=== PATIENT | male | born 1960 | race African-American/Black ===

== ENCOUNTER 2021-12-05 23:16 | Emergency (ER) | payer OTHER ==
--- OUTSIDE RECORDS SUMMARY | 2021-12-05 23:19 | XMS REPORT | Clinical Summary ---
:1960 Author Organization [facility] MD [facility] Address [address] [place] [address] Care Team Providers Name Role Phone Unavailable Primary Care Provider Unavailable Allergies Not on File Medications Not on file Active Problems Not on file Social History Tobacco Use Types Packs/Day Years Used Date Never Assessed Sex Assigned at Date Recorded Not on file Last Filed Vital Signs Not on file Plan of Treatment Not on file Results Not on fileafter 12/05/2020 Insurance Payer Benefit Plan / Subscriber ID Effective Phone Address T ype Group Dates [employer] [id number] 2015-Prese [phone] Medicaid [place] [id number]
--- OUTSIDE RECORDS SUMMARY | 2021-12-05 23:23 | XMS REPORT | Continuity of Care Document ---
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 00:00 extremities grams) (GLYCOLAX) 00 :00 into 4 to 17 gram 8 ounces oral powder of water, packet juice, soda, tea or coffee and drink once daily as directed. cyclobenzap 2020-05- No Peripheral 10mg Take 1 [facility] rine 06-11 vascular tablet by [facility] (FLEXERIL) 00:00: 00:00 disease mouth 3 10 mg 00 :00 with pain times tablet at rest daily. lidocaine 2020-05- No Peripheral 2{patch Apply 2 [facility] (LIDODERM) 06-11 vascular } Patches to [facility] 5 % patch 00:00: 00:00 disease skin as 00 :00 with pain directed at rest every 24 hours for 30 days Leave patch(es) on for up to 12 hours, then 12 hours off.. atorvastati 2020-05- No Peripheral 20mg Take 1 [facility] n (LIPITOR) 06-11 arterial tablet by [facility] 20 mg 00:00: 00:00 occlusive mouth at tablet 00 :00 disease bedtime nightly. hydroCHLORO 2020-05- No Peripheral TAKE 1 [facility] thiazide 06-11 arterial CAPSULE BY [facility] 12.5 mg 00:00: 00:00 occlusive MOUTH capsule 00 :00 disease TWICE A DAY. tamsulosin 2020-05 No Peripheral .4mg Take 1 [facility] (FLOMAX) 06-11 arterial capsule by [facility] 0.4 mg 00:00: 00:00 occlusive mouth at capsule 00 :00 disease bedtime nightly for 90 days. cyclobenzap 2020-05- No Peripheral 10mg Take 1 [facility] rine 06-11 vascular tablet by [facility]s (FLEXERIL) 00:00: 00:00 disease mouth 3 10 mg 00 :00 with pain times tablet at rest daily. sennosides- 2020-05- No Peripheral 1{tbl} Take 1 [facility] docusate 06-11 arterial tablet by ealth sodium 00:00: 00:00 occlusive mouth 2 (SENNA 00 :00 disease times PLUS) daily as 8.6-50 mg needed for tablet Constipati on. aspirin 2020-05 No Peripheral 81mg QD Chew and [facility] (ASPIRIN) 06-11 arterial swallow 1 Health 81 mg 00:00: 00:00 occlusive tablet by chewable 00 :00 disease mouth tablet daily. acetaminoph 2020-05 Yes Peripheral 1{tbl} Take 1 [facility] en-codeine 06-10 vascular tablet by [facility] (TYLENOL 00:00: disease mouth #3) 300-30 00 with pain every 4 mg per at rest hours as tablet needed for Pain. traMADoL 2020-05 Peripheral 100mg Take 2 [facility] (ULTRAM) 50 06-10 vascular tablets by [facility] mg tablet 00:00: 00:00 disease mouth 00 :00 with pain every 6 at rest hours as needed for Pain. acetaminoph 2020-05 No Peripheral 650mg Take 2 [facility] en 06-10 vascular tablets by [facility] (TYLENOL) 00:00: 00:00 disease mouth 325 mg 00 :00 with pain every 6 tablet at rest hours. gabapentin 2020-05 No Peripheral 600mg Take 2 [facility] (NEURONTIN) 06-10 vascular capsules [facility] 300 mg 00:00: 00:00 disease by mouth 3 capsule 00 :00 with pain times at rest daily. Cyclobenzap 2020-05- No Peripheral 10mg Take 1 [facility] rine 06-10 vascular tablet by [facility] (FLEXERIL) 00:00: 00:00 disease mouth 3 10 mg 00 :00 with pain times tablet at rest daily. lidocaine 2020-05- No Peripheral 2{patch Apply 2 [facility] (LIDODERM) 06-10 vascular } Patches to [facility] 5 % patch 00:00: 00:00 disease skin as 00 :00 with pain directed at rest every 24 hours for 30 days Leave patch(es) on for up to 12 hours, then 12 hours off.. sennosides- 2020-05- No Peripheral 1{tbl} Take 1 [facility] docusate 06-10 arterial tablet by ealth sodium 00:00: 00:00 occlusive mouth 2 (SENNA 00 :00 disease times PLUS) daily as 8.6-50 mg needed for tablet Constipati on. polyethylen 2020-05- No Pain in Mix 1 H arris e glycol 06-10 both lower packet (17 Health 3350 00:00: 00:00 extremities grams) (GLYCOLAX) 00 :00 into 4 to 17 gram 8 ounces oral powder of water, packet juice, soda, tea or coffee and drink once daily as directed. ibuprofen 2020-05- No Pain in 600mg Take 1 H arris (MOTRIN) 06-10 both lower tablet by Health 600 mg 00:00: 00:00 extremities mouth tablet 00 :00 every 8 hours as needed for Pain. hydroCHLORO 2020-05- No Peripheral TAKE 1 [facility] thiazide 06-10 arterial CAPSULE BY [facility] 12.5 mg 00:00: 00:00 occlusive MOUTH capsule 00 :00 disease TWICE A DAY. glycerin/mi 2020-05- No 225mL 225 mL, U nivers neral oil 05-07 Rectal, ity of (AGLO 23:45: 23:06 ONCE, 1 [place] ENEMA) 00 :00 dose, On Medical (COMPOUNDED Wed Branch ) Enem 225 03/07/21 at mL 1845, MARIANA iopamidol 2020-05- No [id number] 120mL 120 mL, Univers (ISOVUE 05-07 Intravenou ity o f 370-500 mL) 23:00: 21:43 s, ONCE, 1 [place] injection 00 :00 dose, On Medica l 120 mL Wed Branch 03/07/21 at 1800, Routine docusate 2020-05 Yes [id number] 250mg Take 1 Un [facility] sodium 250 -03 capsule by ity of mg capsule 00:00: mouth [place] 00 daily. Medical Branch polyethylen 2020-05 Yes [id number] 1{packe Take 1 Univers e glycol 1-03 t} Packet by ity of 3350 00:00: mouth [place] (MIRALAX) 00 every 24 Medica l 17 gram (twenty-fo Branch powder ur) hours as needed for Constipati on. ondansetron 2020-05 Yes [id number] 4mg Take 1 Univers 4 mg 1-03 tablet by ity of disintegrat 00:00: mouth [place] ing tablet 00 every 4 Medica l (four) Branch hours as needed for Nausea and Vomiting (N/V). docusate 2020-05 Yes [id number] 250mg Take 1 Un [facility] sodium 250 1-03 capsule by ity of mg capsule 00:00: mouth [place] 00 daily. Medical Branch polyethylen 2020-05 Yes [id number] 1{packe Take 1 Univers e glycol 1-03 t} Packet by ity of 3350 00:00: mouth [place] (MIRALAX) 00 every 24 Medica l 17 gram (twenty-fo Branch powder ur) hours as needed for Constipati on. ondansetron 2020-05 Yes [id number] 4mg Take 1 Univers 4 mg 1-03 tablet by ity of disintegrat 00:00: mouth [place] ing tablet 00 every 4 Medica l (four) Branch hours as needed for Nausea and Vomiting (N/V). docusate 2020-05 Yes [id number] 250mg Take 1 Un [facility] sodium 250 1-03 capsule by ity of mg capsule 00:00: mouth [place] 00 daily. Medical Branch polyethylen 2020-05 Yes [id number] 1{packe Take 1 Univers e glycol 1-03 t} Packet by ity of 3350 00:00: mouth [place] (MIRALAX) 00 every 24 Medica l 17 gram (twenty-fo Branch powder ur) hours as needed for Constipati on. ondansetron 2020-05 Yes [id number] 4mg Take 1 Univers 4 mg 1-03 tablet by ity of disintegrat 00:00: mouth [place] ing tablet 00 every 4 Medica l (four) Branch hours as needed for Nausea and Vomiting (N/V). docusate 2020-05 Yes [id number] 250mg Take 1 Un [facility] sodium 250 1-03 capsule by ity of mg capsule 00:00: mouth [place] 00 daily. Medical Branch polyethylen 2020-05 Yes [id number] 1{packe Take 1 Univers e glycol 1-03 t} Packet by ity of 3350 00:00: mouth [place] (MIRALAX) 00 every 24 Medica l 17 gram (twenty-fo Branch powder ur) hours as needed for Constipati on. ondansetron 2020-05 Yes [id number] 4mg Take 1 Univers 4 mg 1-03 tablet by ity of disintegrat 00:00: mouth [place] ing tablet 00 every 4 Medica l (four) Branch hours as needed for Nausea and Vomiting (N/V). docusate 2020-05 Yes [id number] 250mg Take 1 Un [facility] sodium 250 1-03 capsule by ity of mg capsule 00:00: mouth [place] 00 daily. Medical Branch polyethylen 2020-05 Yes [id number] 1{packe Take 1 Univers e glycol 1-03 t} Packet by ity of 3350 00:00: mouth [place] (MIRALAX) 00 every 24 Medica l 17 gram (twenty-fo Branch powder ur) hours as needed for Constipati on. ondansetron 2020-05 Yes [id number] 4mg Take 1 Univers 4 mg 1-03 tablet by ity of disintegrat 00:00: mouth [place] ing tablet 00 every 4 Medica l (four) Branch hours as needed for Nausea and Vomiting (N/V). docusate 2020-05 Yes [id number] 250mg Take 1 Un [facility] sodium 250 1-03 capsule by ity of mg capsule 00:00: mouth [place] 00 daily. Medical Branch polyethylen 2020-05 Yes [id number] 1{packe Take 1 Univers e glycol 1-03 t} Packet by ity of 3350 00:00: mouth [place] (MIRALAX) 00 every 24 Medica l 17 gram (twenty-fo Branch powder ur) hours as needed for Constipati on. ondansetron 2020-05 Yes [id number] 4mg Take 1 Univers 4 mg 1-03 tablet by ity of disintegrat 00:00: mouth [place] ing tablet 00 every 4 Medica l (four) Branch hours as needed for Nausea and Vomiting (N/V). magnesium 2020-05- No [id number] 300mL Take 300 Univers citrate 1-03 11-04 mL by ity of solution 00:00: 04:59 mouth once [place] 00 :00 now for 1 Medical dose. Branch acetaminoph 2020- No Peripheral 1{tbl} TAKE 1 [facility] en-codeine 01-31 12-06 arterial TABLET BY [facility] (TYLENOL 00:00: 00:00 occlusive MOUTH #3) 300-30 00 :00 disease EVERY 4 mg per HOURS tablet NEEDED FOR PAIN atorvastati 2020- No Peripheral 20mg Take 1 [facility] n (LIPITOR) 01-01 12-07 arterial tablet by Health 20 mg 00:00: 00:00 occlusive mouth at tablet 00 :00 disease bedtime nightly. aspirin Peripheral 81mg QD Chew and [facility] (ASPIRIN) 01-01 arterial swallow 1 Health 81 mg 00:00: 00:00 occlusive tablet by chewable 00 :00 disease mouth tablet daily. Miscellaneo No Peripheral Handicap [facility] 01-01 arterial Placard. Health Supply Misc 00:00: 00:00 occlusive 00 :00 disease hydroCHLORO Peripheral TAKE 1 [facility] thiazide 01-01 arterial CAPSULE BY [facility] 12.5 mg 00:00: 00:00 occlusive MOUTH capsule 00 :00 disease TWICE A DAY. gabapentin Idiopathic 400mg Take 1 [facility] (NEURONTIN) 01-01 peripheral capsule by [facility] 400 mg 00:00: 00:00 neuropathy mouth 3 capsule 00 :00 times daily. clopidogreL Medication 75mg QD Take 1 [place] (PLAVIX) 75 01-01 refill tablet by [facility] mg tablet 00:00: 00:00 mouth 00 :00 daily. acetaminoph No Peripheral 1{tbl} Take 1 [place] en-codeine 01-01 arterial tablet by [facility] (TYLENOL/CO 00:00: 00:00 occlusive mouth DEINE #3) 00 :00 disease every 4 300-30 mg hours as per tablet needed for Pain. cephALEXin Boil 500mg Take 1 [facility] (KEFLEX) 01-01 capsule by [facility] th 500 mg 00:00: 23:59 mouth 4 capsule 00 :00 times daily for 10 days. traMADoL Peripheral 50mg TAKE 1 [facility] (ULTRAM) 50 11-30 arterial TABLET BY Health mg tablet 00:00: 00:00 occlusive MOUTH 00 :00 disease EVERY 6 HOURS NEEDED FOR PAIN. traMADoL No Peripheral 50mg Take 1 [facility] (ULTRAM) 50 6-25 11- arterial tablet by Health mg tablet 00:00: 00:00 occlusive mouth 00 :00 disease every 6 hours as needed for Pain. traMADoL 2020- No Peripheral 50mg Take 1 [facility] (ULTRAM) 50 10-18 arterial tablet by Health mg tablet 00:00: 00:00 occlusive mouth 00 :00 disease every 6 hours as needed for Pain. atorvastati 2020- No Peripheral 20mg Take 1 [facility] n (LIPITOR) 10-16 arterial tablet by Health 20 mg 00:00: 00:00 occlusive mouth at tablet 00 :00 disease bedtime nightly. hydroCHLORO 2020- No Peripheral TAKE 1 [facility] thiazide 10-16 arterial CAPSULE BY Health 12.5 mg 00:00: 00:00 occlusive MOUTH capsule 00 :00 disease TWICE A DAY. gabapentin 2020- Idiopathic 400mg Take 1 [facility] (NEURONTIN) 10-16 peripheral capsule by Health 400 mg 00:00: 00:00 neuropathy mouth 3 capsule 00 :00 times daily. clopidogreL 2020- No Medication 75mg QD Take 1 [facility] (PLAVIX) 75 10-16 refill tablet by Health mg tablet 00:00: 00:00 mouth 00 :00 daily. hydroCHLORO 2020- No Peripheral TAKE 1 [facility] thiazide 10-10 arterial CAPSULE BY Health 12.5 mg 00:00: 00:00 occlusive MOUTH capsule 00 :00 disease TWICE A DAY Miscellaneo 2020- No Peripheral Handicap [facility] 08-22 arterial Placard. Health Supply Misc 00:00: 00:00 occlusive 00 :00 disease clopidogreL 2020- No Medication 75mg QD Take 1 [facility] (PLAVIX) 75 08-18 refill tablet by Health mg tablet 00:00: 00:00 mouth 00 :00 daily. clopidogreL 2020- No Medication 75mg QD Take 1 [facility] (PLAVIX) 75 08-18 refill tablet by Health mg tablet 00:00: 00:00 mouth 00 :00 daily. iohexol 2020- No [id number] 120mL 120 mL, Univers (OMNIPAQUE 08-16 Intravenou it y of 350 06:00: 06:00 s, ONCE, 1 [place] BULK-150 00 :00 dose, Wed Medica l mL) 08/16/20 at Branch injection 0100, 120 mL Routine gabapentin 2020- No Idiopathic 400mg Take 1 [facility] [employer] (NEURONTIN) 08-09 peripheral capsule by Health 400 mg 00:00: 00:00 neuropathy mouth 3 capsule 00 :00 times daily. clopidogreL 2020- No Medication 75mg QD Take 1 [facility] (PLAVIX) 75 08-09-16 refill tablet by Health mg tablet 00:00: 00:00 mouth 00 :00 daily. clopidogreL 2020- No Medication 75mg QD Take 1 [facility] [employer] (PLAVIX) 75 08-09 refill tablet by Health mg tablet 00:00: 00:00 mouth 00 :00 daily. gabapentin No Idiopathic 400mg Take 1 [facility] [employer] (NEURONTIN) 08-09 peripheral capsule by Health 400 mg 00:00: 00:00 neuropathy mouth 3 capsule 00 :00 times daily. ibuprofen Idiopathic 600mg TAKE 1 [facility] [employer] (MOTRIN) 08-07 peripheral TABLET BY [facility] 600 mg 00:00: 00:00 neuropathy MOUTH tablet 00 :00 EVERY 6 HOURS polyethylen 2020- No Screen for Empty the [facility] [employer] e glycol 07-19 colon contents Healt h (MOVIPREP) 00:00: 00:00 cancer of 1 Pouch 100-7.5-2.6 00 :00 A and 1 91 gram Pouch B PwPk kit into the container that comes with MoviPrep. Add lukewarm water to the Fill Line on the container. Drink as directed by your doctor.. aspirin No Peripheral 81mg QD Chew and [place] (ASPIRIN) 07-19 arterial swallow 1 [facility] 81 mg 00:00: 00:00 occlusive tablet by chewable 00 :00 disease mouth tablet daily. atorvastati 2020- No Peripheral 20mg Take 1 [facility] [employer] n (LIPITOR) 07-19 arterial tablet by [facility] 20 mg 00:00: 00:00 occlusive mouth at tablet 00 :00 disease bedtime nightly. hydroCHLORO 2020- No Peripheral 12.5mg Q.5D Take 1 [facility] [employer] thiazide 07-19 arterial capsule by Health 12.5 mg 00:00: 00:00 occlusive mouth 2 capsule 00 :00 disease times daily. gabapentin Idiopathic 400mg Take 1 [facility] (NEURONTIN) 07-19 peripheral capsule by Health 400 mg 00:00: 00:00 neuropathy mouth 3 capsule 00 :00 times daily. clopidogreL No Medication 75mg QD Take 1 [facility] (PLAVIX) 75 07-19- refill tablet by Health mg tablet 00:00: 00:00 mouth 00 :00 daily. ibuprofen Idiopathic 600mg Take 1 [facility] (MOTRIN) 07-19 peripheral tablet by Health 600 mg 00:00: 00:00 neuropathy mouth tablet 00 :00 every 6 hours. nicotine 2019-05 Cigarette 1{patch Apply 1 [facility] (NICODERM 06-08 nicotine } [facility] 00:00: 00:00 dependence skin as hr patch 00 :00 without directed complicatio every 24 n hours. gabapentin 2019-05 PAD 600mg Take 1 [facility] (NEURONTIN) 06-08 (peripheral tablet by Health 600 mg 00:00: 23:59 artery mouth 3 tablet 00 :00 disease) times daily for 60 days. gabapentin 2019-05 Peripheral 400mg Take 1 [facility] (NEURONTIN) 007-19 neuropathic capsule by Health 400 mg 00:00: 00:00 pain mouth 3 capsule 00 :00 times daily. Miscellaneo Yes Peripheral by [facility] 01-05 arterial Misc.(Non- Health Supply Misc 00:00: occlusive Drug; 00 disease Combo Route) route Handicap Placard. traMADoL Peripheral 50mg Take 1 [facility] (ULTRAM) 50 01-0516 arterial tablet by Health mg tablet 00:00: 00:00 occlusive mouth 00 :00 disease every 6 hours as needed for Pain. clopidogreL No Medication 75mg QD Take 1 [facility] (PLAVIX) 75 01-04 refill tablet by Health mg tablet 00:00: 00:00 mouth 00 :00 daily. ibuprofen Idiopathic 600mg TAKE 1 [facility] (MOTRIN) 01-02 peripheral TABLET BY Health 600 mg 00:00: 00:00 neuropathy MOUTH tablet 00 :00 EVERY 6 HOURS raNITIdine No Peripheral 150mg Q.5D Take 1 [facility] HCL 150 mg 12-26 arterial tablet by Health tablet 00:00: 00:00 occlusive mouth 2 00 :00 disease times daily. tamsulosin 2020- No Peripheral .4mg Take 1 [facility] (FLOMAX) 12-26 arterial capsule by [facility] 0.4 mg 00:00: 00:00 occlusive mouth at extended 00 :00 disease bedtime release nightly. capsule acetaminoph No Peripheral 650mg Take 2 [facility] en 12-26 arterial tablets by [facility] th (TYLENOL) 00:00: 00:00 occlusive mouth 325 mg 00 :00 disease every 4 tablet hours. sennosides- 2020- No Peripheral 1{tbl} Take 1 [facility] docusate 12-26 arterial tablet by ealth sodium 00:00: 00:00 occlusive mouth 2 (SENNA 00 :00 disease times PLUS) daily as 8.6-50 mg needed for tablet Constipati on. aspirin 2020- No Peripheral 81mg QD Chew and [facility] (ASPIRIN) 12-26 arterial swallow 1 Health 81 mg 00:00: 00:00 occlusive tablet by chewable 00 :00 disease mouth tablet daily. atorvastati 2020- No Peripheral 20mg Take 1 [facility] n (LIPITOR) 12-26 arterial tablet by [facility] 20 mg 00:00: 00:00 occlusive mouth at tablet 00 :00 disease bedtime nightly. hydroCHLORO No Peripheral 12.5mg Q.5D Take 1 [facility] thiazide 12-26 arterial capsule by [facility] 12.5 mg 00:00: 00:00 occlusive mouth 2 capsule 00 :00 disease times daily. pregabalin 2020- No Idiopathic TAKE 1 [facility] (LYRICA) 75 10-11 peripheral CAPSULE BY [facility] mg capsule 00:00: 00:00 neuropathy MOUTH 00 :00 TWICE A DAY ketoconazol 2020- No Medication QD Apply to [facility] thomas (NIZORAL) 304-09 refill affected H ealth 2 % topical 00:00: 00:00 area cream 00 :00 daily. gabapentin 2020- No Caries 400mg Take 1 H arris (NEURONTIN) 4-17 -17 capsule by H ealth 400 mg 00:00: 00:00 mouth 3 capsule 00 :00 times daily. No known No Univers medications [facility] [place] [facility] Immunizations Ordered Immunization Filled Immunization Date Status Commen ts Source Name Name Influenza, 2021-04-10 Completed [facility] Vaccine<FLUCELVAX>(Mul 00:00:00 ti-Dose) Influenza, Injectable, 2019-07-13 Completed [facility] Quadrivalent 00:00:00 Influenza, Vaccine 2018-06-16 Completed [facility] <FLUCELVAX>(Preservati 00:00:00 ve-Free) PPV 23 (Pneumococcal 2018-06-16 Completed [facility] Polysaccharide 23 00:00:00 Valent) PPD 2013-08-03 Completed [facility] 00:00:00 Tdap Tetanus, 2013-08-03 Completed [facility] diphtheria, acellular 00:00:00 pertussis Vaccine PPD 2007-06-14 Completed [facility] 00:00:00 Tdap Tetanus, 1999-08-04 Completed [facility] diphtheria, acellular 00:00:00 pertussis Vaccine Vital Signs Vital Name Observation Time Observation Value Comments Source Systolic blood 2021-12-06 02:53:00 121 mm[Hg] [facility] Diastolic blood 2021-12-06 02:53:00 70 mm[Hg] [facility] Heart rate 2021-12-06 02:53:00 107 /min [facility] Body temperature 2021-12-06 02:53:00 36.22 Tami [facility] Respiratory rate 2021-12-06 02:53:00 16 /min [facility] Body height 2021-12-06 02:53:00 182.9 cm [facility] Body weight 2021-12-06 02:53:00 68.04 kg [facility] BMI 2021-12-06 02:53:00 20.34 kg/m2 [facility] Oxygen saturation in 2021-12-06 02:53:00 98 /min [facility] Arterial blood by [facility] Pulse oximetry Branch Systolic blood 2021-11-28 03:15:00 129 mm[Hg] Univer sity of pressure [place] [facility] Diastolic blood 2021-11-28 03:15:00 94 mm[Hg] Unive rsity of pressure [facility] Heart rate 2021-11-28 03:15:00 63 /min [facility] [place] [facility] Respiratory rate 2021-11-28 03:15:00 18 /min Univ ersity of [facility] Oxygen saturation in 2021-11-28 03:15:00 97 /min University of Arterial blood by [facility] Pulse oximetry Branch Body temperature 2021-11-27 21:59:00 36.22 Tami [facility] [place] [facility] Body height 2021-11-27 21:57:00 182.9 cm [facility] Body weight 2021-11-27 21:57:00 68.04 kg [facility] BMI 2021-11-27 21:57:00 20.34 kg/m2 [facility] Systolic blood 2021-07-29 03:35:00 145 mm[Hg] Univer sity of pressure [facility] Diastolic blood 2021-07-29 03:35:00 107 mm[Hg] Unive rsity of pressure [facility] Heart rate 2021-07-29 03:35:00 85 /min [facility] Oxygen saturation in 2021-07-29 03:35:00 99 /min University of Arterial blood by [facility] Pulse oximetry Branch Body temperature 2021-07-29 00:56:00 36.83 Tami [facility] ers[facility] [place] [facility] Respiratory rate 2021-07-29 00:56:00 20 /min Univ ersity [facility] Body weight 2021-07-29 00:56:00 77.111 kg [facility] BMI 2021-07-29 00:56:00 23.06 kg/m2 [facility] Systolic blood 2021-07-13 04:00:00 135 mm[Hg] Univer sity of pressure [place] [facility] Diastolic blood 2021-07-13 04:00:00 86 mm[Hg] Unive rsity of pressure [facility] Heart rate 2021-07-13 04:00:00 90 /min [facility] [place] [facility] Respiratory rate 2021-07-13 04:00:00 18 /min Univ ersity of [place] [facility] Oxygen saturation in 2021-07-13 04:00:00 100 /min University of Arterial blood by [facility] bennie Pulse oximetry Branch Body temperature 2021-07-13 01:14:00 36.5 Tami Univ ersity [facility] [place] [facility] Body height 2021-07-13 01:14:00 182.9 cm [facility] [place] [facility] Body weight 2021-07-13 01:14:00 77.111 kg [facility] [place] [facility] BMI 2021-07-13 01:14:00 23.06 kg/m2 [facility] [place] [facility] Respiratory rate 2021-06-01 01:22:00 20 /min Univ ersity [facility] [place] [facility] Body height 2021-06-01 01:22:00 182.9 cm [facility] [place] [facility] Body weight 2021-06-01 01:22:00 77.111 kg [facility] [place] [facility] BMI 2021-06-01 01:22:00 23.06 kg/m2 [facility] [place] [facility] Oxygen saturation in 2021-06-01 01:22:00 99 /min University of Arterial blood by [facility] Pulse oximetry Branch Systolic blood 2021-06-01 01:22:00 132 mm[Hg] Univer sity of pressure [facility] Diastolic blood 2021-06-01 01:22:00 91 mm[Hg] Unive rsity of pressure [facility] Heart rate 2021-06-01 01:22:00 104 /min [facility] [place] [facility] Body temperature 2021-06-01 01:22:00 36.44 Tami [facility] [place] [facility] Systolic blood 2021-03-07 21:30:00 133 mm[Hg] Univer sity of pressure [facility] Diastolic blood 2021-03-07 21:30:00 80 mm[Hg] Unive rsity of pressure [facility] Heart rate 2021-03-07 21:30:00 66 /min [facility]i [facility] [place] [facility] Respiratory rate 2021-03-07 21:30:00 17 /min Univ ersity [facility] [place] [facility] Oxygen saturation in 2021-03-07 21:30:00 99 /min University of Arterial blood by [facility] bennie Pulse oximetry Branch Body temperature 2021-03-07 19:28:00 36.67 Tami [facility] Body height 2021-03-07 19:28:00 182.9 cm [facility] Body weight 2021-03-07 19:28:00 77.111 kg [facility] BMI 2021-03-07 19:28:00 23.06 kg/m2 [facility] Systolic blood 2020-08-16 09:00:00 121 mm[Hg] Univer sity of pressure [facility] Diastolic blood 2020-08-16 09:00:00 81 mm[Hg] Unive rsity of pressure [facility] Heart rate 2020-08-16 09:00:00 71 /min Universi ty of [facility] Respiratory rate 2020-08-16 09:00:00 20 /min [facility] Oxygen saturation in 2020-08-16 09:00:00 100 /min University of Arterial blood by [facility] Pulse oximetry Branch Body temperature 2020-08-16 01:39:00 36.61 Tami [facility] Body height 2020-08-16 01:39:00 182.9 cm [facility] Body weight 2020-08-16 01:39:00 74.39 kg [facility] BMI 2020-08-16 01:39:00 22.24 kg/m2 Universi [facility] Oxygen saturation in 2021-05-10 09:32:00 94 /min [facility] Arterial blood by Pulse oximetry Systolic blood 2021-05-10 08:00:00 96 mm[Hg] [facility] pressure Diastolic blood 2021-05-10 08:00:00 66 mm[Hg] [facility] Heart rate 2021-05-10 08:00:00 75 /min [facility] Body temperature 2021-05-10 08:00:00 36.94 Tami [facility] Respiratory rate 2021-05-10 08:00:00 24 /min [facility] Body height 2021-05-02 01:00:00 182.9 cm [facility] Body weight 2021-05-02 01:00:00 70.308 kg [facility] BMI 2021-05-02 01:00:00 21.02 kg/m2 Peterson Kerns [facility] Procedures Procedure Date / Time Performing Clinician Source Performed COMP. METABOLIC PANEL 2021-11-28 00:25:00 [facility] ([id number]) [facility] SEDIMENTATION RATE 2021-11-28 00:25:00 More Aldana [facility] CBC WITH DIFF 2021-11-28 00:25:00 More Aldana [facility] XR FOOT <3 VW RIGHT 2021-11-27 23:59:00 More Aldana [facility] CONSENT/REFUSAL FOR 2021-11-27 21:51:32 [facility] DIAGNOSIS AND TREATMENT [facility] CT ABDOMEN PELVIS W 2021-07-29 02:55:46 Singer [facility] CONTRAST Medical Branch LIPASE 2021-07-29 02:35:00 Singer [facility] COMP. METABOLIC PANEL 2021-07-29 02:35:00 Singer [facility] ([id number]) [facility] CBC WITH DIFF 2021-07-29 01:35:00 [facility] CONSENT/REFUSAL FOR 2021-07-29 00:21:47 Doctor Pasquale [facility] DIAGNOSIS AND TREATMENT [facility] XR KUB 2021-07-13 02:14:08 [facility] NOTICE OF PRIVACY 2021-07-13 01:04:13 Doctor Pasquale [facility] PRACTICES [facility] CONSENT/REFUSAL FOR 2021-07-13 01:03:10 Doctor Pasquale [facility] DIAGNOSIS AND TREATMENT [facility] CBC/DIFF 2021-06-01 11:23:00 Jessica Pulido CBC 2021-06-01 11:23:00 Jessica Pulido BASIC METABOLIC PANEL 2021-05-10 04:50:00 Iker Jeffries [facility] CBC/DIFF 2021-05-10 04:50:00 [facility] 2021-05-10 04:50:00 [facility] 1 VIEW 2021-05-09 19:10:14 Johnson Morelos [facility] BASIC METABOLIC PANEL 2021-05-09 08:53:00 Johnson Morelos [facility] BASIC METABOLIC PANEL 2021-05-09 05:04:00 Iker Jeffries [facility] CBC/DIFF 2021-05-09 05:04:00 Iker Jeffries [facility] CBC 2021-05-09 05:04:00 [facility]IC PANEL 2021-05-08 05:28:00 Iker Jeffries [facility] CBC/DIFF 2021-05-08 05:28:00 [facility] 2021-05-08 05:28:00 [facility] BASIC METABOLIC PANEL 2021-05-07 05:20:00 Iker Jeffries [facility] CBC/DIFF 2021-05-07 05:20:00 [facility] 2021-05-07 05:20:00 [facility] VANCOMYCIN, TROUGH 2021-05-06 12:16:00 Jessica Pulido BASIC METABOLIC PANEL 2021-05-06 03:59:00 Iker Jeffries [facility] CBC/DIFF 2021-05-06 03:59:00 [facility] 2021-05-06 03:59:00 [facility] CHEST 2 VIEWS 2021-05-05 22:17:00 Iker Jeffries alth COMMODE AT BEDSIDE 2021-05-05 11:07:12 Yocasta Mills alth COMMODE AT BEDSIDE 2021-05-05 09:04:21 Yocasta Mills alth VANCOMYCIN, TROUGH 2021-05-05 04:21:00 Johnson Morelos [facility] ealt BASIC METABOLIC PANEL 2021-05-05 04:21:00 Iker Jeffries [facility] CBC/DIFF 2021-05-05 04:21:00 Iker Jeffries [facility] CBC 2021-05-05 04:21:00 [facility] COMMODE AT BEDSIDE 2021-05-04 22:42:11 Yocasta Mills [facility] GLUCOSE POC 2021-05-04 16:35:00 [facility] 2021-05-04 12:56:00 [facility]OC 2021-05-04 07:46:00 Yocasta Millst h BASIC METABOLIC PANEL 2021-05-04 05:28:00 Iker Jeffries Health MAGNESIUM 2021-05-04 05:28:00 Iker Jeffries Healt h PHOSPHORUS 2021-05-04 05:28:00 [facility] PTT 2021-05-04 05:28:00 [facility] PT/INR 2021-05-04 05:28:00 [facility] CBC/DIFF 2021-05-04 05:28:00 [facility] CBC 2021-05-04 05:28:00 [facility] GLUCOSE POC 2021-05-04 01:59:00 [facility] Mills [facility] GLU[facility]SE POC 2021-05-03 21:32:00 Yocasta Mills h TISSUE EXAM 2021-05-03 12:17:00 [facility] ABG/LYTES/HGB/IONIZED CA 2021-05-03 10:34:00 Key Navarro [facility] PANEL ARTERIAL BLOOD GAS WITH 2021-05-03 10:34:00 Key Navarro [facility] HEMOGLOBIN CALCIUM, IONIZED 2021-05-03 10:34:00 Key Navarro [facility] SODIUM/POTASSIUM 2021-05-03 10:34:00 Key Navarro [facility] GLUCOSE 2021-05-03 10:34:00 Key Navarro [facility] CHLORIDE 2021-05-03 10:34:00 Key Navarro [facility] AFB STAIN AND CULTURE 2021-05-03 10:27:00 Yocasta Mills [facility] ANAEROBE CULTURE 2021-05-03 10:27:00 Yocasta Mills [facility] FUNGUS STAIN AND CULTURE 2021-05-03 10:27:00 Yocasta Mills [facility] WOUND/ABSCESS CULTURE AND 2021-05-03 10:27:00 Yocasta Mills [facility] GRAM STAIN [facility] ANESTHESIA BLOCK 2021-05-03 10:12:52 Key Navarro [facility] ARTERIAL CATHETER AIRWAY 2021-05-03 09:25:00 Key Navarro [facility] BYPASS GRAFT 2021-05-03 09:10:00 Yocasta Mills FEMORAL-ILIAC TYPE AND SCREEN 2021-05-03 04:30:00 [facility] T&S - COLLECTION 2021-05-03 04:30:00 Iker Jeffries [facility] CBC/DIFF 2021-05-03 04:30:[address] [facility] CBC 2021-05-03 04:30:[address] [facility] INFUSION PUMP 2021-05-02 15:11:54 Surinder Zepeda E[facility] INVASIVE CARD L HRT 2021-05-02 14:39:00 Sherrell [facility] ARTERY/VENTRICLE ANGIO Chayakrit (PROSOLV) INFUSION PUMP 2021-05-02 13:58:40 [facility]asta Mills [facility] INFUSION PUMP 2021-05-02 12:49:47 Yocasta Mills RBC UNITS 2021-05-02 08:58:[address] [facility] ECHG NON-INVASIVE PROC 2021-05-02 07:31:00 Iker Jeffries [facility] ECHOCARDIOGRAM 2-D W/O CONTRAST (PROSOLVE) CBC/DIFF 2021-05-02 04:24:[address] [facility] BASIC METABOLIC PANEL 2021-05-02 04:24:00 Iker Jeffries [facility] CBC 2021-05-02 04:24:[address] [facility] SARS-COV-2, FLU A/B, RSV 2021-05-01 22:41:00 Aisha Noe [facility] CORONAVIRUS, COVID-19, 2021-05-01 22:41:00 Kusum Aisha [facility] ZACKERY XRAY CHEST 1 VIEW 2021-05-01 21:11:34 KusumAisha alth BMP POC 2021-05-01 19:21:00 Unknown, Provider Peterson [facility] CREATININE POC 2021-05-01 19:21:00 Unknown, Provider Peterson [facility] CBC/DIFF 2021-05-01 19:15:00 Kusum Aisha [facility] CBC 2021-05-01 19:15:00 Kusum Aisha [facility] 12 LEAD EKG 2021-05-01 18:57:44 Kusum Aishahi [facility] CBC/DIFF 2021-04-07 00:12:00 [facility] CBC 2021-04-07 00:12:00 Marquise Oneilt h BASIC METABOLIC PANEL 2021-04-07 00:11:00 Marquise Oneil [facility] MAGNESIUM 2021-04-07 00:11:00 Marquise Oneil Healt h PHOSPHORUS 2021-04-07 00:11:00 [facility] IR U/S GUIDANCE FOR 2021-04-06 16:27:21 Abelino Lewis ealt VASCULAR ACCESS IR ANGIOGRAM EXT. 2021-04-06 16:27:21 Abelino Lewis [facility] UNILATERAL PLACE CATH SELECT 2021-04-06 16:27:21 Abelino Lewis lt ART,ABD/PEL MODERATE SEDATION, 2021-04-06 16:27:21 Abelino Lewis INITIAL MODERATE SEDATION, ADDL 2021-04-06 16:27:[address] [facility] GLUCOSE POC 2021-04-06 13:46:00 Yocasta Mills TYPE AND SCREEN 2021-04-06 10:05:00 Marquise Oneil h T&S - COLLECTION 2021-04-06 10:05:00 Marquise Oneil [facility] CBC (WITHOUT 2021-04-06 10:05:00 Shannon Oquendo [facility] DIFFERENTIAL) PT/INR 2021-04-06 10:05:00 Shannon Oquendo [facility] GLUCOSE POC 2021-04-06 07:19:00 Yocasta Mills SEQUENTIAL COMPRESSION 2021-04-06 06:38:40 GeneYocasta george [facility] PUMP INFUSION PUMP 2021-04-06 06:38:40 Gene Omaraminta [facility] SARS-COV-2, FLU A/B, RSV 2021-04-06 05:32:00 Mason Henriquez Taryn [facility] CORONAVIRUS, COVID-19, 2021-04-06 05:32:00 MartinezMason [facility] ZACKERY CTA ABDOMEN-PELVIS W 2021-04-06 02:33:17 García [facility] CONTRAST - AORTA + RUNOFF Gerardine BMP POC 2021-04-05 20:10:00 Estefania Steiner [facility] CREATININE POC 2021-04-05 20:10:00 Estefania Steiner isaías [facility] CT ABDOMEN PELVIS W 2021-03-07 21:50:16 Jenelle Anderson [facility] CONTRAST Medical Branch URINALYSIS 2021-03-07 21:02:00 Jenelle Anderson [facility] XR CHEST 1 VW 2021-03-07 19:48:21 Jenelle Anderson [facility] LACTIC ACID WHOLE BLOOD 2021-03-07 19:43:00 Jenelle Anderson [facility] COVID-19 (ID NOW RAPID 2021-03-07 19:43:00 Jenelle [facility] Medical Branch LIPASE 2021-03-07 19:42:00 Jenelle [facility] TROPONIN I 2021-03-07 19:42:00 Jenelle [facility] COMP. METABOLIC PANEL 2021-03-07 19:42:00 Jenelle Anderson [facility] ([id number]) [facility] [place] CBC WITH DIFF 2021-03-07 19:42:00 Jenelle Anderson [facility] PROTHROMBIN TIME / INR 2021-03-07 19:42:00 Jenelle Anderson [facility] ACTIVATED PARTIAL 2021-03-07 19:42:00 Jenelle Anderson [facility] PRO-BNP 2021-03-07 19:42:00 Jenelle Anderson [facility] CORONAVIRUS, COVID-19, 2021-02-14 15:10:00 Lauren St[facility] ZACKERY CBC/DIFF 2021-02-12 07:12:00 Car Thomas h COMPREHENSIVE METABOLIC 2021-02-12 07:12:00 [facility] PANEL CBC 2021-02-12 07:12:00 Car Thomas h NONINVASV EXTREM 2021-02-02 10:20:00 Martín Poon EXAM,MULDiomedesBILRAVINDER DUPLEX DOPPLER LOWER 2021-02-02 09:37:00 Martín Poon [facility] EXTREMITY ART BILATERAL CT ABDOMEN PELVIS W 2020-08-16 05:47:58 Charmaine Oquendo [facility] COMP. METABOLIC PANEL 2020-08-16 03:42:00 Charmaine Oquendo [facility] ([id number]) [facility] CBC WITH DIFF 2020-08-16 03:42:00 Charmaine Oquendo [facility] URINALYSIS 2020-08-16 03:42:00 Charmaine Oquendo [facility] BMP POC 2020-08-08 17:28:00 Jean-Claude Holly CREATININE POC 2020-08-08 17:28:00 Jean-Claude Holly ealth CBC/DIFF 2020-08-08 17:20:00 Bhavik Graham ealth R CBC 2020-08-08 17:20:00 Bhavik Graham eah R CBC/DIFF 2020-07-26 11:57:00 Inyang, Nse-Obung Peterson [facility] COMPREHENSIVE METABOLIC 2020-07-26 11:57:00 Inyang, Nse-Obung [facility] PANEL HEMOGLOBIN A1C 2020-07-26 11:57:00 Inyang, Nse-Obung Peterson Quinter[facility] LIPID PROFILE 2020-07-26 11:57:00 Mckinley Mckeona lt CBC 2020-07-26 11:57:00 Mckinley Mckeona lt Plan of Care Planned Activity Planned Date Details Comments Source Future Scheduled 2024-02-23 Imm Pneumococcal [facility] Test 00:00:00 0-64 (2 of 2 - PPSV23) [code = Imm Pneumococcal 0-64 (2 of 2 - PPSV23)] Future Scheduled 2021-08-09 COVID-19 Vaccine (1) [facility]poned from [facility] 00:00:00 [code = COVID-19 02/23/1965 Vaccine (1)] (Patient Refused) Future Scheduled 2019-01-21 [facility] 00:00:00 malignant neoplasm of colon (procedure) [code = 725151039] Future Scheduled 2019-01-21 [facility] 00:00:00 malignant neoplasm of colon (procedure) [code = 750837659] Future Scheduled 2009 [facility] 00:00:00 malignant neoplasm of colon (procedure) [code = 976471319] Future Scheduled 2009 [facility] 00:00:00 malignant neoplasm of colon (procedure) [code = 909731963] Future Scheduled 2009 [facility] 00:00:00 malignant neoplasm of colon (procedure) [code = 646681961] Procedure 2021-12-06 CONSENT/REFUSAL FOR [facility] 02:45:12 [facility]NOS[facility] AND [place] [facility] TREAT[facility] Branch Encounters Start End Encounter Admission Attending Care Care Encounter Source Date/Time Date/Time Type Type Clinicians Facility Department ID 2021-06-28 Inpatient [facility]I [facility] [id number] Peterson 00:00:00 [facility] 2021-06-28 Inpatient JUDI [facility] [id number] Peterson 00:00:00 [facility] 2021-06-14 Inpatient NELSON [facility] [id number] Peterson 00:00:[address] [facility] 2021-06-13 Inpatient NELSON [facility] [id number] [facility] 00:00:[address] [facility] 2021-06-12 Inpatient 1 GENE [facility] [id number] H arris 11:24:00 [facility] 2021-06-12 Inpatient GENE, [facility] [id number] H arris 00:00:00 [facility] 2021-06-07 Inpatient GENE, [facility] [id number] H arris 00:00:00 [facility] 2021-05-03 Inpatient [facility] [id number] H arris 00:00:00 [facility] 2021-05-01 Inpatient 1 GENE, [facility] [id number] H arris 19:15:00 [facility] 2021-04-26 Inpatient GENE, [facility] [id number] H arris 00:00:00 [facility] 2021-04-26 Inpatient [facility] [id number] H arris 00:00:00 [facility] 2021-04-06 Inpatient GENE, [facility] [id number] H arris 13:41:52 [facility] 2021-04-05 Inpatient 1 GENE, [facility] [id number] H arris 09:44:00 [facility] 2018-07-30 Inpatient [facility] [id number] H arris 00:00:00 [facility] 2018-01-16 Inpatient [facility] [id number] H arris 12:01:29 [facility] 2017-12-29 Inpatient [facility] [id number] H arris 17:58:32 [facility] 2017-12-29 Inpatient [facility] [id number] H arris 08:50:44 [facility] 2017-12-29 Inpatient [facility] [id number] H arris 05:46:00 [facility] 2017-12-29 Inpatient [facility] [id number] H arris 00:00:00 [facility] 2017-12-22 Inpatient [facility] [id number] H arris 00:00:00 [facility] 2017-07-29 Inpatient [facility] NELIA [id number] H arris 00:00:00 [facility] 2016-09-17 Inpatient [facility] [id number] Conner [facility]ris 22:00:16 [facility] 2016-09-16 Inpatient [facility] [id number] Conner rris 08:26:49 [facility] 2016-09-16 Inpatient [facility] NELIA [id number] Con[facility]ris 05:53:00 [facility] 2022-01-17 2022-01-17 Outpatient DAYANARA, [facility] [id number] [place] [address] 00:00:00 00:00:00 [facility] 2021-12-05 2021-12-05 Emergency X EDUARDO [facility] ERT [id number] Univers 22:00:00 22:30:00 CHARMAINE grant [facility] 2021-12-05 2021-12-05 Emergency Pablo Jordan [facility] [id number] Univers 22:00:00 22:30:00 Charmaine Oquendo [place] [id number] [facility] [id number] [facility] [id number] [address] 2021-11-27 2021-11-27 Emergency X EDUARDO [facility] ERT [id number] Univers 17:01:00 22:21:00 CHARMAINE raúl [facility] 2021-11-27 2021-11-27 Emergency More Aldana [facility] [id number] [facility] 17:01:00 22:21:00 Charmaine Oquendo [place] [id number] [facility] [id number] [facility] [id number] [address] 2021-11-15 2021-11-15 Outpatient [facility] [id number] [place] 00:00:00 00:00:00 [facility] 2021-11-08 2021-11-08 Outpatient [facility] [id number] [place] 00:00:00 00:00:00 [facility] 2021-11-08 2021-11-08 Outpatient [facility] [id number] [place] 00:00:00 00:00:00 [facility] 2021-11-01 2021-11-01 Outpatient [facility] [id number] [place] 00:00:00 00:00:00 [facility] 2021-10-17 2021-10-17 Outpatient [facility] [id number] [place] 00:00:00 00:00:00 [facility] 2021-10-17 2021-10-17 Outpatient [facility] [id number] [place] 00:00:00 00:00:00 [facility] 2021-10-17 2021-10-17 Outpatient [facility] [id number] [place] 00:00:00 00:00:00 [facility] 2021-10-17 2021-10-17 Outpatient GENE, [facility] [id number] [place] 00:00:00 00:00:00 [facility] 2021-09-28 2021-09-28 Outpatient GENE, [facility] [id number] [place] 08:54:53 10:04:49 [facility] 2021-09-14 2021-09-14 Outpatient [facility] [id number] [place] 00:00:00 00:00:00 [facility] 2021-09-07 2021-09-07 Outpatient [facility] [id number] [place] 00:00:00 00:00:00 [facility] 2021-09-04 2021-09-04 Outpatient TRACEE, [facility] [id number] [place] 00:00:00 00:00:00 [facility] 2021-08-31 2021-08-31 Outpatient GENE, [facility] [id number] [place] 08:33:07 23:59:00 [facility] 2021-08-31 2021-08-31 Outpatient GENE, [facility] [id number] [place] 08:33:03 23:59:00 [facility] 2021-08-31 2021-08-31 Outpatient [facility] [id number] [place] 11:33:48 13:34:10 [facility] 2021-08-31 2021-08-31 Outpatient [facility] [id number] [place] 10:53:06 11:12:28 [facility] 2021-08-31 2021-08-31 Outpatient CHEVY, [facility] [id number] [place] 00:00:00 00:00:00 [facility] 2021-08-13 2021-08-13 Outpatient INZECHARIAH, [facility] [id number] [place] 10:11:20 10:52:43 NSE-OBUNG [facility] 2021-08-10 2021-08-10 Outpatient PALLIABDON, [facility] [id number] [place] 10:28:13 11:47:30 FAMILIA [facility] 2021-08-10 2021-08-10 Outpatient AWARIANNE, [facility] [id number] [place] 10:28:09 10:54:05 LEON [facility]alt 2021-08-03 2021-08-03 Outpatient [facility] [id number] [place] 11:38:34 12:51:05 [facility] 2021-08-02 2021-08-02 Outpatient [facility] [id number] [place] 00:00:00 00:00:00 [facility] 2021-07-28 2021-07-28 Emergency [facility] E[facility] [id number] [facility] 19:49:00 23:06:00 CLA grant [facility] 2021-07-28 2021-07-28 Emergency [facility] [id number] Univers 19:49:00 23:06:00 Cal BERGER [id number] i ty of [place] [id number] [facility] [id number] [address] 2021-07-20 2021-07-20 Outpatient [facility] [id number] [place] 00:00:00 00:00:00 [facility] 2021-07-13 2021-07-13 Outpatient PARVIN, [facility] [id number] [place] 00:00:00 00:00:00 [facility] 2021-07-13 2021-07-13 [facility] [id number] [place] 00:00:00 00:00:00 [facility] 2021-07-12 2021-07-12 Emergency [facility] [id number] [facility] 19:16:00 22:26:00 IKER grant [facility] 2021-07-12 2021-07-12 [facility] [id number] Univers 19:16:00 22:26:00 Iker BERGER [id number] i ty of [place] [id number] [facility] [id number] [address] 2021-07-09 2021-07-09 Outpatient PARVIN, [facility] [id number] [place] 00:00:00 00:00:00 [facility] 2021-06-12 2021-07-07 [facility] [id number] [place] 11:24:00 11:45:00 [facility] 2021-07-05 2021-07-05 [facility] [id number] [place] 00:00:00 00:00:00 [facility] 2021-06-29 2021-06-29 Outpatient VARGAS, [facility] [id number] [place] 00:00:00 00:00:00 Count includes the [facility] 2021-06-28 2021-06-28 Inpatient [facility] [id number] [place] 02:49:42 02:49:44 [facility] 2021-06-27 2021-06-27 Inpatient [facility] [id number] [place] 09:41:30 10:24:29 [facility] 2021-06-27 2021-06-27 [facility] [id number] [place] 05:58:51 07:19:17 [facility] 2021-06-27 2021-06-27 Outpatient VARGAS, [facility] [id number] [place] 00:00:00 00:00:00 Count includes the [facility] 2021-06-26 2021-06-26 Inpatient [facility] [id number] [place] 18:33:37 18:33:39 [facility] 2021-06-25 2021-06-25 Inpatient [facility] [id number] [place] 14:38:50 14:38:55 [facility] 2021-06-20 2021-06-20 Outpatient CARLEE, [facility] [id number] [place] 00:00:00 00:00:00 [facility] 2021-06-17 2021-06-17 Inpatient [facility] [id number] [place] 00:10:54 01:48:03 [facility] 2021-06-15 2021-06-15 Inpatient [facility] [id number] [place] 15:49:00 15:49:03 [facility] 2021-06-15 2021-06-15 Inpatient VERA, [facility] [id number] [place] 06:17:33 06:48:26 [facility] 2021-06-13 2021-06-13 Inpatient [facility] [id number] [place] 23:26:16 23:26:18 [facility] 2021-06-12 2021-06-12 Emergency DEON, [facility] [id number] [place] 11:29:01 11:39:24 [facility] 2021-06-12 2021-06-12 Emergency GENE, [facility] [id number] [place] 11:34:30 11:34:30 [facility] 2021-06-12 2021-06-12 Emergency GENE, [facility] [id number] [place] 11:17:09 11:17:09 [facility] 2021-06-12 2021-06-12 Emergency [facility] [id number] [place] 10:49:46 10:49:46 [facility] 2021-06-11 2021-06-11 Outpatient [facility] [id number] [place] 00:00:00 00:00:00 Health 2021-06-08 2021-06-08 Outpatient GENE, [facility] [id number] [place] 00:00:00 00:00:00 [facility] 2021-06-08 2021-06-08 Outpatient FERNANDO, [facility] [id number] [place] 00:00:00 00:00:00 [facility] [facility] 2021-06-01 2021-06-01 Outpatient GENE, [facility] [id number] [place] 11:21:24 12:23:12 [facility] 2021-06-01 2021-06-01 Office [facility] [id number] [place] 09:41:37 09:41:37 Visit [facility] 2021-06-01 2021-06-01 Orders Gene, [facility] [id number] [place] 00:00:00 00:00:00 Only [facility] 2021-05-31 2021-05-31 Emergency X [facility] [id number] [facility] 19:27:00 22:15:00 [facility] 2021-05-31 2021-05-31 Emergency [facility] [id number] [facility] 19:27:00 22:15:00 Charmaine [facility] [id number] [facility] [id number] [facility] [id number] [address] 2021-05-25 2021-05-25 Outpatient GENE, [facility] [id number] [place] 00:00:00 00:00:00 [facility] 2021-05-14 2021-05-14 Outpatient PARVIN, [facility] [id number] [place] 00:00:00 00:00:00 [facility] 2021-05-01 2021-05-10 [facility] Yocasta Mills [facility] [id number] [place] 19:15:00 11:29:00 Encounter Surinder Zepeda [facility] Rhona Rodriguez 2021-05-09 2021-05-09 Inpatient [facility] [id number] [place] 18:35:18 19:10:19 [facility] 2021-05-09 2021-05-09 Outpatient PARVIN, [facility] [id number] [place] 00:00:00 00:00:00 NICCI [facility] 2021-05-05 2021-05-05 Inpatient [facility] [id number] [place] 21:57:10 22:18:10 [facility] 2021-05-03 2021-05-03 Anesthesia Key Navaror [facility] [id number] [place] 09:10:00 14:14:00 Event Dayanara Griffin [facility] 2021-05-03 2021-05-03 Surgery Gene, [facility] [id number] [place] 07:30:00 13:00:00 [facility] 2021-05-03 2021-05-03 Inpatient [facility] [id number] [place] 07:45:32 07:45:39 [facility] 2021-05-02 2021-05-02 [facility] [id number] [place] 14:06:16 15:53:53 [facility] 2021-05-02 2021-05-02 Inpatient [facility] [id number] [place] 10:59:59 11:00:51 [facility] 2021-05-01 2021-05-01 Emergency [facility] [id number] [place] 20:53:28 21:11:39 [facility] 2021-04-25 2021-04-26 Emergency [facility] [id number] [place] 00:00:00 02:25:13 [facility] 2021-04-26 2021-04-26 [facility] [id number] [place] 00:00:00 00:00:00 Only [facility] 2021-04-25 2021-04-25 [facility] [id number] [place] 13:50:08 16:10:21 Visit [facility] 2021-04-05 2021-04-10 [facility] [id number] [place] 09:44:00 16:11:00 Encounter YOCASTA [facility] 2021-04-06 2021-04-06 Emergency OBDULIA, [facility] [id number] [place] 01:55:56 01:55:56 [facility] 2021-04-05 2021-04-05 [facility] [id number] [place] 20:56:16 20:56:16 [facility] 2021-04-04 2021-04-04 Outpatient [facility] [id number] [place] 00:00:00 00:00:00 [facility] 2021-03-07 2021-03-07 Emergency [facility] [id number] [facility] 14:22:00 20:11:00 JENELLE grant [facility] 2021-03-07 2021-03-07 [facility] [id number] [facility] 14:22:00 20:11:00 Jenelle [facility] [id number] i [facility] [id number] [facility] [id number] [address] 2021-02-23 2021-02-23 Outpatient [facility] [id number] [place] 00:00:00 00:00:00 [facility] 2021 2021 Outpatient GRICELDA TOMLINSON [facility] [id number] [place] 00:00:00 00:00:00 [facility] 2021-02-20 2021-02-20 Outpatient [facility] [id number] [place] 00:00:00 00:00:00 [facility] 2021-02-14 2021-02-14 Nurse Only Yumiko [facility] [id number] [place] 15:09:43 15:11:14 Shreya weiner [facility] 2021-02-14 2021-02-14 Outpatient 3 [facility] [id number] [place] 15:09:43 15:11:14 [facility] 2021-02-14 2021-02-14 Office Gene [facility] [id number] [place] 13:26:59 13:46:59 Visit [facility] 2021-02-14 2021-02-14 Outpatient RAHEEM [facility] [id number] [place] 00:00:00 00:00:00 [facility] 2021-02-12 2021-02-12 Outpatient [facility] [id number] [place] 07:11:52 07:12:10 Health 2021-02-12 2021-02-12 Outpatient CAR THOMAS [facility] [id number] [place] 00:00:00 00:00:00 [facility] 2021-02-08 2021-02-08 Orders Cleve, [facility] [id number] [place] 00:00:00 00:00:00 Only Ndidi C [facility] 2021-02-07 2021-02-07 Outpatient [facility] [id number] [place] 00:00:00 00:00:00 [facility] 2021-02-02 2021-02-02 [facility] [id number] [place] 08:30:00 23:59:00 Encounter Ramgaryr Heal 2021-02-02 2021-02-02 [facility] [id number] [place] 12:32:19 13:38:19 Visit [facility] 2021-02-02 2021-02-02 [facility] [id number] [place] 07:45:00 08:29:00 Encounter Ramaminta Heal 2021-01-31 2021-01-31 Telephonic Bright Mcfarlane [facility] [id number] [place] 06:26:20 15:14:55 Encounter Olesya Epps [facility] 2021-01-31 2021-01-31 [facility] [id number] [place] 00:00:00 00:00:00 Review Olesya Matthew [facility] 2021-01-30 2021-01-30 [facility] [id number] [place] 00:00:00 00:00:00 Nse-Obung Heal 2021-01-19 2021-01-19 Outpatient [facility] [id number] [place] 00:00:00 00:00:00 [facility] 2021-01-19 2021-01-19 Orders Cleve, [facility] [id number] [place] 00:00:00 00:00:00 Only Ndidi C Health 2021-01-16 2021-01-16 [facility] [id number] [place] 00:00:00 00:00:00 Only Ndidi C Health 2021-01-15 2021-01-15 Orders [facility], [facility] [id number] [place] 00:00:00 00:00:00 Only Nse-Obung Heal 2021-01-01 2021-01-01 Office [facility], [facility] [id number] [place] 10:47:29 11:45:36 Visit Nse-Obung Heal 2020-12-17 2020-12-17 Refill [facility], [facility] [id number] [place] 00:00:00 00:00:00 Nse-Obung Heal 2020-11-27 2020-11-27 Refill [facility], [facility] [id number] [place] 00:00:00 00:00:00 Nse-Obung Heal 2020-10-26 2020-10-26 Orders [facility], [facility] [id number] [place] 00:00:00 00:00:00 Only Nse-Obung Heal 2020-10-18 2020-10-18 Telephonic [facility], [facility] [id number] [place] 06:49:24 08:20:02 Encounter Nse-Obung He [facility] 2020-10-16 2020-10-16 Refill [facility], [facility] [id number] [place] 00:00:00 00:00:00 Nse-Obung Heal 2020-10-16 2020-10-16 Refill [facility], [facility] [id number] [place] 00:00:00 00:00:00 Nse-Obung Heal 2020-10-16 2020-10-16 Refill [facility], [facility] [id number] [place] 00:00:00 00:00:00 Nse-Obung Heal 2020-10-10 2020-10-10 Refill [facility], [facility] [id number] [place] 00:00:00 00:00:00 Nse-Obung Heal 2020-08-30 2020-08-30 Nurse Only [facility], [facility] [id number] [place] 00:00:00 00:00:00 Nse-Obung Heal 2020-08-22 2020-08-22 Nurse Only [facility] [id number] [place] 00:00:00 00:00:00 Nse-Obung Heal th 2020-08-18 2020-08-18 Telephonic [facility] [id number] [place] 06:52:51 08:54:18 Encounter NseHakanObnneka Quintero alth 2020-08-18 2020-08-18 Orders [facility], [facility] [id number] [place] 00:00:00 00:00:00 Only Nse-Obung Heal 2020-08-15 2020-08-16 Emergency [facility] [id number] [facility] 20:43:00 06:25:00 Charmaine [facility] [employer] [facility] [id number] [facility] [id number] [facility] [id number] [place] [id number] [place] 2020-08-15 2020-08-15 Emergency X [facility] [id number] [facility] 20:43:00 20:43:00 CHARMAINE grant [facility] 2020-08-09 2020-08-09 Telephonic [facility] [id number] [place] 07:08:15 13:34:02 Encounter Nse-Obung Leon alth 2020-08-08 2020-08-08 Emergency Avni, [facility] [id number] [place] 15:13:00 19:39:00 Jean-Claude Bermudez h 2020-08-06 2020-08-06 Refill [facility] [id number] [place] 00:00:00 00:00:00 Nse-Obung Heal 2020-08-02 2020-08-02 Outpatient [facility] [id number] 15:57:00 23:59:00 Wilner amos 2020-08-02 2020-08-02 Telephonic Bright Mcfarlane [facility] [id number] [place] 06:26:44 13:05:57 Encounter Mich [facility] 2020-08-01 2020-08-01 Pre-Clinic Mich [facility] [id number] [place] 00:00:00 00:00:00 Review [facility] 2020-07-20 2020-07-20 [facility], [facility] [id number] [place] 00:00:00 00:00:00 Nse-Obung Heal 2020-07-19 2020-07-19 Telephonic [facility], [facility] [id number] [place] 14:23:25 15:11:03 Encounter Nse-Obung He [facility] 2020-07-19 2020-07-19 Refill [facility], [facility] [id number] [place] 00:00:00 00:00:00 Nse-Obung Heal 2020-07-18 2020-07-18 Refill Rehan, [facility] [id number] [place] 00:00:00 00:00:00 Geeta Bermudez 2018-12-18 2018-12-18 Outpatient [facility] [id number] [place] 00:00:00 00:00:00 [facility] 2018-12-08 2018-12-08 Outpatient [facility] [id number] [place] 00:00:00 00:00:00 [facility] 2018-10-16 2018-10-16 Outpatient [facility] [id number] [place] 00:00:00 00:00:00 [facility] 2018-09-11 2018-09-11 Outpatient [facility] [id number] [place] 00:00:00 00:00:00 [facility] 2018-09-10 2018-09-10 Outpatient [facility] [id number] [place] 00:00:00 00:00:00 [facility] 2018-09-09 2018-09-09 Outpatient [facility] [id number] [place] 00:00:00 00:00:00 Health 2018-09-01 2018-09-01 Outpatient [facility] [id number] [place] 00:00:00 00:00:00 [facility] 2018-08-27 2018-08-27 Outpatient [facility] [id number] [place] 00:00:00 00:00:00 Health 2018-08-25 2018-08-25 Outpatient [facility] [id number] [place] 11:01:40 11:01:40 Health 2018-08-18 2018-08-18 Outpatient [facility] [id number] [place] 05:55:00 05:55:00 Health 2018-08-18 2018-08-18 Outpatient [facility] [id number] [place] 00:00:00 00:00:00 [facility] 2018-08-13 2018-08-13 Outpatient [facility] [id number] [place] 07:57:39 07:57:39 [facility] 2018-08-13 2018-08-13 Outpatient [facility] [id number] [place] 00:00:00 00:00:00 [facility] 2018-07-30 2018-07-30 Outpatient [facility] [id number] [place] 08:22:23 08:22:23 [facility] 2018-07-28 2018-07-28 Outpatient [facility] [id number] [place] 08:55:47 08:55:47 [facility] 2018-07-23 2018-07-23 Outpatient [facility] [id number] [place] 09:56:26 09:56:26 [facility] 2018-07-16 2018-07-16 Outpatient [facility] [id number] [place] 00:00:00 00:00:00 [facility] 2018-06-30 2018-06-30 Outpatient [facility] [id number] [place] 00:00:00 00:00:00 [facility] 2018-06-30 2018-06-30 Outpatient [facility] [id number] [place] 00:00:00 00:00:00 [facility] 2018-06-26 2018-06-26 Outpatient [facility] [id number] [place] 13:50:31 13:50:31 [facility] 2018-06-16 2018-06-16 Outpatient [facility] [id number] [place] 10:56:38 10:56:38 [facility] 2018-06-11 2018-06-11 Outpatient [facility] [id number] [place] 08:52:00 08:52:00 [facility] 2018-06-11 2018-06-11 Outpatient [facility] [id number] [place] 00:00:00 00:00:00 [facility] 2018-06-04 2018-06-04 Outpatient [facility] [id number] [place] 07:53:18 07:53:18 [facility] 2018-06-04 2018-06-04 Outpatient [facility] [id number] [place] 00:00:00 00:00:00 [facility] 2018-05-22 2018-05-22 Outpatient [facility] [id number] [place] 13:21:07 13:21:07 [facility] 2018-04-29 2018-04-29 Outpatient [facility] [id number] [place] 00:00:00 00:00:00 [facility] 2018-04-17 2018-04-17 Outpatient [facility] [id number] [place] 00:00:00 00:00:00 [facility] 2018-04-10 2018-04-10 Outpatient [facility] [id number] [place] 00:00:00 00:00:00 [facility] 2018-04-06 2018-04-06 Outpatient [facility] [id number] [place] 00:00:00 00:00:00 [facility] 2018-04-03 2018-04-03 Outpatient [facility] [id number] [place] 00:00:00 00:00:00 [facility] 2018-04-03 2018-04-03 Outpatient [facility] [id number] [place] 00:00:00 00:00:00 [facility] 2018-04-03 2018-04-03 Outpatient [facility] [id number] [place] 00:00:00 00:00:00 [facility] 2018-04-03 2018-04-03 Outpatient [facility] [id number] [place] 00:00:00 00:00:00 [facility] 2018-03-13 2018-03-13 Outpatient [facility] [id number] [place] 00:00:00 00:00:00 [facility] 2018-02-11 2018-02-11 Outpatient [facility] [id number] [place] 00:00:00 00:00:00 [facility] 2018-02-03 2018-02-03 Outpatient [facility] [id number] [place] 00:00:00 00:00:00 [facility] 2018-01-27 2018-01-27 Outpatient [facility] [id number] [place] 16:33:01 16:33:01 [facility] 2018-01-27 2018-01-27 Outpatient [facility] [id number] [place] 00:00:00 00:00:00 [facility] 2018-01-26 2018-01-26 Outpatient [facility] [id number] [place] 00:00:00 00:00:00 [facility] 2018-01-23 2018-01-23 Outpatient [facility] [id number] [place] 00:00:00 00:00:00 [facility] 2018-01-23 2018-01-23 Outpatient [facility] [id number] [place] 00:00:00 00:00:00 [facility] 2018-01-16 2018-01-16 Outpatient [facility] [id number] [place] 13:10:20 13:10:20 [facility] 2018-01-16 2018-01-16 Outpatient [facility] [id number] [place] 00:00:00 00:00:00 [facility] 2018-01-16 2018-01-16 Outpatient [facility] [id number] [place] 00:00:00 00:00:00 [facility] 2018-01-09 2018-01-09 Outpatient [facility] [id number] [place] 00:00:00 00:00:00 [facility] 2018-01-08 2018-01-08 Outpatient [facility] [id number] [place] 09:15:59 09:15:59 [facility] 2018-01-08 2018-01-08 Outpatient [facility] [id number] [place] 00:00:00 00:00:00 [facility] 2018-01-07 2018-01-07 Outpatient [facility] [id number] [place] 10:00:39 10:00:39 [facility] 2018-01-06 2018-01-06 Outpatient [facility] [id number] [place] 00:00:00 00:00:00 [facility] 2018-01-01 2018-01-01 Outpatient [facility] [id number] [place] 00:00:00 00:00:00 [facility] 2017-12-30 2017-12-30 Outpatient [facility] [id number] [place] 00:00:00 00:00:00 [facility] 2017-12-29 2017-12-29 Outpatient [facility] [id number] [place] 00:00:00 00:00:00 [facility] 2017-12-25 2017-12-25 Outpatient [facility] [id number] [place] 00:00:00 00:00:00 [facility] 2017-12-24 2017-12-24 Outpatient [facility] [id number] [place] 15:42:00 15:42:00 [facility] 2017-12-22 2017-12-22 Outpatient [facility] [id number] [place] 07:44:57 07:44:57 [facility] 2017-12-22 2017-12-22 Outpatient [facility] [id number] [place] 00:00:00 00:00:00 [facility] 2017-12-17 2017-12-17 Outpatient [facility] [id number] [place] 00:00:00 00:00:00 [facility] 2017-11-18 2017-11-18 Outpatient [facility] [id number] [place] 00:00:00 00:00:00 [facility] 2017-10-28 2017-10-28 Outpatient [facility] [id number] [place] 00:00:00 00:00:00 [facility] 2017-10-16 2017-10-16 Outpatient [facility] [id number] [place] 08:30:23 08:30:23 [facility] 2017-09-22 2017-09-22 Outpatient [facility] [id number] [place] 09:59:28 09:59:28 [facility] 2017-09-22 2017-09-22 Outpatient [facility] [id number] [place] 00:00:00 00:00:00 [facility] 2017-09-16 2017-09-16 Outpatient [facility] [id number] [place] 10:52:56 10:52:56 [facility] 2017-09-08 2017-09-08 Outpatient [facility] [id number] [place] 00:00:00 00:00:00 [facility] 2017-09-01 2017-09-01 Outpatient [facility] [id number] [place] 00:00:00 00:00:00 [facility] 2017-08-21 2017-08-21 Outpatient [facility] [id number] [place] 08:06:47 08:06:47 [facility] 2017-08-13 2017-08-13 Outpatient [facility] [id number] [place] 00:00:00 00:00:00 [facility] 2017-08-12 2017-08-12 Outpatient [facility] [id number] [place] 10:49:59 10:49:59 [facility] 2017-07-30 2017-07-30 Outpatient [facility] [id number] [place] 12:33:19 12:33:19 [facility] 2017-07-29 2017-07-29 Outpatient [facility] [id number] [place] 11:05:14 11:05:14 [facility] 2017-07-21 2017-07-21 Outpatient [facility] [id number] [place] 14:11:52 14:11:52 [facility] 2017-07-18 2017-07-18 Outpatient [facility] [id number] [place] 06:30:02 06:30:02 [facility] 2017-07-18 2017-07-18 Outpatient [facility] [id number] [place] 00:00:00 00:00:00 [facility] 2017-07-18 2017-07-18 Outpatient [facility] [id number] [place] 00:00:00 00:00:00 [facility] 2017-07-18 2017-07-18 Outpatient [facility] [id number] [place] 00:00:00 00:00:00 [facility] 2017-07-15 2017-07-15 Outpatient [facility] [id number] [place] 10:37:12 10:37:12 [facility] 2017-07-15 2017-07-15 Outpatient [facility] [id number] [place] 09:37:37 09:37:37 [facility] 2017-07-11 2017-07-11 Outpatient [facility] [id number] [place] 14:24:21 14:24:21 [facility] 2017-07-11 2017-07-11 Outpatient [facility] [id number] [place] 13:51:53 13:51:53 [facility] 2017-07-11 2017-07-11 Outpatient [facility] [id number] [place] 00:00:00 00:00:00 [facility] 2017-07-10 2017-07-10 Outpatient [facility] [id number] [place] 00:00:00 00:00:00 [facility] 2017-07-03 2017-07-03 Outpatient [facility] [id number] [place] 10:46:35 10:46:35 [facility] 2017-07-03 2017-07-03 Outpatient [facility] [id number] [place] 00:00:00 00:00:00 [facility] 2017-06-27 2017-06-27 Outpatient [facility] [id number] [place] 00:00:00 00:00:00 [facility] 2017-06-20 2017-06-20 Emergency [facility] [id number] [place] 11:15:58 11:15:58 [facility] 2017-06-20 2017-06-20 Outpatient [facility] [id number] [place] 07:16:48 07:16:48 [facility] 2017-05-26 2017-05-26 Outpatient [facility] [id number] [place] 08:05:25 08:05:25 [facility] 2017-04-01 2017-04-01 Outpatient [facility] [id number] [place] 00:00:00 00:00:00 [facility] 2017-03-10 2017-03-10 Outpatient [facility] [id number] [place] 00:00:00 00:00:00 [facility] 2017-01-31 2017-01-31 Outpatient [facility] [id number] [place] 11:32:01 11:32:01 [facility] 2017-01-24 2017-01-24 Outpatient [facility] [id number] [place] 10:21:42 10:21:42 [facility] 2017-01-24 2017-01-24 Outpatient [facility] [id number] [place] 00:00:00 00:00:00 [facility] 2016-12-24 2016-12-24 Outpatient [facility] [id number] [place] 00:00:00 00:00:00 [facility] 2016-11-26 2016-11-26 Outpatient [facility] [id number] [place] 10:03:23 10:03:23 [facility] 2016-11-15 2016-11-15 Outpatient [facility] [id number] [place] 00:00:00 00:00:00 [facility] 2016-10-01 2016-10-01 Outpatient [facility] [id number] [place] 00:00:00 00:00:00 [facility] 2016-09-22 2016-09-22 Inpatient [facility] [id number] [place] 17:56:05 00:00:00 Health Results Test Description Test Time Test Comments Results Result Comments Source [facility] 2021-07-29 03:13:05 Test Item Value Reference Range Interpretation Comme nts NA (test code = 7653379434) 141 mmol/L 135-145 K (test code = 0955702947) 3.3 mmol/L 3.5-5.0 L CL (test code = 6925949923) 105 mmol/L 98-108 CO2 TOTAL (test code = 2146371679) 26 mmol/L 23-31 AGAP (test code = 2266741703) 2-16 BUN (test code = 8227596456) 11 mg/dL 7-23 GLUCOSE (test code = 6626604235) 92 mg/dL 70-110 CREATININE (test code = 0.96 mg/dL 0.60-1.25 5799643283) TOTAL BILI (test code = 0.7 mg/dL 0.1-1.7 3505101486) CALCIUM (test code = 6970241595) 9.7 mg/dL 8.6-10.6 T PROTEIN (test code = 1274192829) 7.4 g/dL 6.3-8.2 ALBUMIN (test code = 7176391102) 4.1 g/dL 3.5-5.0 ALK PHOS (test code = 8868487327) 116 U/L 34-122 ALTv (test code = 1742-6) 16 U/L 5-50 AST(SGOT) (test code = 1312932528) 27 U/L 13-40 eGFR (test code = 1083136543) mL/min/1.73m2 LUCINDA (test code = LUCINDA) Association of Glomerular Filtration Rate (GFR) and Staging of Kidney Disease* + +-------- + ------+| GFR (mL/min/1.73 m2) ?| With Kidney Damage ?| ?Without Kidney Damage+ +-- + +| ?>90 ?| ?Stage one ?| ? Normal ?+ +------- + -------+| ?60-89 ?| ?Stage two ?| ? Decreased GFR ? + +-------- + ------+| ?30-59 ?| ?Stage three ?| ? Stage three ? + +-------- + ------+| ?15-29 ?| ?Stage four ? | ? Stage four ?+ +------- + -------+| ?<15 (or dialysis) ? ?| ?Stage five ? | ? Stage five ?+ +------- + -------+ *Each stage assumes the associated GFR level has been in effect for at least three months. ?Stages 1 to 5, with or without kidney disease, indicate chronic kidney disease. Notes: Determination of stages one and two (with eGFR >59mL/min/1.73 m2) requires estimation of kidney damage for at least three months as defined by structural or functional abnormalities of the kidney, manifested by either:Pathological abnormalities or Markers of kidney damage (including abnormalities in the composition of the blood or urine or abnormalities in imaging tests). Lab Interpretation (test code = Abnormal 47779-5) [facility]12[facility]45 Test Item Value Reference Range Interpretation Comments LIPASE (test code = 1611533191) 72 U/L 0-220 Lab Interpretation (test code = Normal 60831-5) [facility] with Foiw8878-42-18 02:12:44 Test Item Value Reference Range Interpretation Comments WBC (test code = See_Comment L [Automated 3290-2) message] The sy stem which generated this result transmitted reference range : 4.20 - 10.70 10*3/?L. The reference range was not used to interpret this result as normal/abnormal . RBC (test code = See_Comment [Automated 769-8) message] The sy stem which generated this result transmitted reference range : 4.26 - 5.52 10*6/?L. The reference range was not used to interpret this result as normal/abnormal . HGB (test code = 13.8 g/dL 12.2-16.4 718-7) HCT (test code = 41.7 % 38.4-49.3 4544-3) MCV (test code = 94.8 fL 81.7-95.6 787-2) MCH (test code = 31.4 pg 26.1-32.7 785-6) MCHC (test code = 33.1 g/dL 31.2-35.0 786-4) RDW-SD (test code = 50.5 fL 38.5-51.6 25639-7) RDW-CV (test code = 14.3 % 12.1-15.4 788-0) PLT (test code = See_Comment [Automated 777-3) message] The sy stem which generated this result transmitted reference range : 150 - 328 10*3/ ?L. The reference r ovdiio was not used to interpret this result as normal/abnormal . MPV (test code = 9.6 fL 9.8-13.0 L 65678-9) NRBC/100 WBC (test See_Comment [Automat ed code = 0941339497) message] The system which generated this result transmitted reference range : 0.0 - 10.0 /100 WBCs. The refer ence range was not u sed to interpret th is result as normal/abnormal . NRBC x10^3 (test code <0.01 See_Comment [Auto mated = 8869676793) message] The s ystem which generated this result transmitted reference range : 10*3/?L. The reference range was not used to interpret this result as normal/abnormal . GRAN MAT (NEUT) % 51.4 % (test code = 770-8) IMM GRAN % (test code 0.00 % = 1589161156) LYMPH % (test code = 34.9 % 736-9) MONO % (test code = 10.1 % 5905-5) EOS % (test code = 2.4 % 713-8) BASO % (test code = 1.2 % 706-2) GRAN MAT x10^3(ANC) 1.74 10*3/uL 1.99-6.95 L (test code = 9190912201) IMM GRAN x10^3 (test <0.03 0.00-0.06 code = 7693027826) LYMPH x10^3 (test code 1.18 10*3/uL 1.09-3.23 = 731-0) MONO x10^3 (test code 0.34 10*3/uL 0.36-1.02 L = 742-7) EOS x10^3 (test code = 0.08 10*3/uL 0.06-0.53 711-2) BASO x10^3 (test code 0.04 10*3/uL 0.01-0.09 = 704-7) Lab Interpretation Abnormal (test code = 82609-6) [facility] RNA Resp Ql ZACKERY+taqin3525-95-12 23:12:09 Test Item Value Reference Range Interpretation Comments Hospitalized? (test Yes code = 94044-4) ICU? (test code = No 69282-7) Symptomatic as defined No by CDC? (test code = 17640-5) Employed in No Healthcare? (test code = 03595-1) Resident in a No congregate care setting (including nursing homes, residential care for people with intellectual and developmental disabilities, psychiatric treatment facilities, group homes, board and care homes, homeless correction, foster care or other): (test code = 24271-0) SARS-CoV-2 RNA Resp Ql NOT DETECTED Not Detected INTER PRETATION: No ZACKERY+probe (test code = detec table levels 30382-9) of SARS-CoV-2 Coronavirus (COVID-19) were present in this patient's sampl e by this test. A no t detected result does not exclud e the possibility of active infectio n with this virus due to other factor s that may affect the results such as a poorly collecte d sample, viral titers below th e limit of detect ion of the assay, a nd the infrequent possibility of inhibitors in t he sample. This re sult should be interpreted in conjunction wit h clinical, radiographic, a nd other laborator y findings and sh ould not be used as the sole indicator of active infectio n with SARS-CoV-2 Coronavirus (COVID-19). COMMENT: This elvis real-time reverse transcriptase polymerase chain reaction (RT-PCR) test rapidly detects SARS-CoV-2 (COVID-19) virus from nasopharyngeal and nasal swab specimens. In accordance with the FDA's guidance document "Policy for Diagnostic Tests for Coronavirus Disease-2019 during the Public Health Emergency", this test was developed, and its performance characteristics were verified by the [facility] molecular diagnostics laboratory and is authorized for clinical diagnostic use. This laboratory is certified under the Clinical Laboratory Improvement Amendments (CLIA) as qualified to perform high complexity clinical laboratory testing.SARS-CoV-2 RNA Resp Ql ZACKERY+ocfpv2855-52-60 22:19:24 Test Item Value Reference Range Interpretation Comments Hospitalized? (test Yes code = 63857-6) ICU? (test code = Yes 874511-4) Symptomatic as defined No by CDC? (test code = 09295-8) Employed in No Healthcare? (test code = 90901-4) Resident in a No congregate care setting (including nursing homes, residential care for people with intellectual and developmental disabilities, psychiatric treatment facilities, group homes, board and care homes, homeless correction, foster care or other): (test code = 31070-2) SARS-CoV-2 RNA Resp Ql NOT DETECTED Not Detected INTER PRETATION: No ZACKERY+probe (test code = detec table levels 71129-3) of SARS-CoV-2 Coronavirus (COVID-19) were present in this patient's sampl e by this test. A no t detected result does not exclud e the possibility of active infectio n with this virus due to other factor s that may affect the results such as a poorly collecte d sample, viral titers below th e limit of detect ion of the assay, a nd the infrequent possibility of inhibitors in t he sample. This re sult should be interpreted in conjunction wit h clinical, radiographic, a nd other laborator y findings and sh ould not be used as the sole indicator of active infectio n with SARS-CoV-2 Coronavirus (COVID-19). COMMENT: This elvis real-time reverse transcriptase polymerase chain reaction (RT-PCR) test rapidly detects SARS-CoV-2 (COVID-19) virus from nasopharyngeal and nasal swab specimens. In accordance with the FDA's guidance document "Policy for Diagnostic Tests for Coronavirus Disease-2019 during the Public Health Emergency", this test was developed, and its performance characteristics were verified by the [facility] molecular diagnostics laboratory and is authorized for clinical diagnostic use. This laboratory is certified under the Clinical Laboratory Improvement Amendments (CLIA) as qualified to perform high complexity clinical laboratory testing.SARS-CoV-2 RNA Resp Ql ZACKERY+gchcn7208-90-02 05:36:08 Test Item Value Reference Range Interpretation Comments Hospitalized? (test Yes code = 61761-2) ICU? (test code = No 43519-4) Symptomatic as defined No by CDC? (test code = 66838-8) Employed in No Healthcare? (test code = 82820-7) Resident in a No congregate care setting (including nursing homes, residential care for people with intellectual and developmental disabilities, psychiatric treatment facilities, group homes, board and care homes, homeless correction, foster care or other): (test code = 33817-8) SARS-CoV-2 RNA Resp Ql NOT DETECTED Not Detected INTER PRETATION: No ZACKERY+probe (test code = detec table levels 57639-7) of SARS-CoV-2 Coronavirus (COVID-19) were present in this patient's sampl e by this test. A no t detected result does not exclud e the possibility of active infectio n with this virus due to other factor s that may affect the results such as a poorly collecte d sample, viral titers below th e limit of detect ion of the assay, a nd the infrequent possibility of inhibitors in t he sample. This re sult should be interpreted in conjunction wit h clinical, radiographic, a nd other laborator y findings and sh ould not be used as the sole indicator of active infectio n with SARS-CoV-2 Coronavirus (COVID-19). COMMENT: This elvis real-time reverse transcriptase polymerase chain reaction (RT-PCR) test rapidly detects SARS-CoV-2 (COVID-19) virus from nasopharyngeal and nasal swab specimens. In accordance with the FDA's guidance document "Policy for Diagnostic Tests for Coronavirus Disease-2019 during the Public Health Emergency", this test was developed, and its performance characteristics were verified by the [facility] molecular diagnostics laboratory and is authorized for clinical diagnostic use. This laboratory is certified under the Clinical Laboratory Improvement Amendments (CLIA) as qualified to perform high complexity clinical laboratory testing.SARS-CoV-2 RNA Resp Ql ZACKERY+cqczu0444-78-47 13:46:23 Test Item Value Reference Range Interpretation Comments Hospitalized? (test No code = 99606-0) ICU? (test code = No 16249-8) Symptomatic as defined No by CDC? (test code = 45264-5) Employed in No Healthcare? (test code = 11840-5) Resident in a No congregate care setting (including nursing homes, residential care for people with intellectual and developmental disabilities, psychiatric treatment facilities, group homes, board and care homes, homeless correction, foster care or other): (test code = 60731-0) SARS-CoV-2 RNA Resp Ql NOT DETECTED Not Detected INTER PRETATION: No ZACKERY+probe (test code = detec table levels 91689-5) of SARS-CoV-2 Coronavirus (COVID-19) were present in this patient's sampl e by this test. A no t detected result does not exclud e the possibility of active infectio n with this virus due to other factor s that may affect the results such as a poorly collecte d sample, viral titers below th e limit of detect ion of the assay, a nd the infrequent possibility of inhibitors in t he sample. This re sult should be interpreted in conjunction wit h clinical, radiographic, a nd other laborator y findings and sh ould not be used as the sole indicator of active infectio n with SARS-CoV-2 Coronavirus (COVID-19). COMMENT: This elvis real-time reverse transcriptase polymerase chain reaction (RT-PCR) test rapidly detects SARS-CoV-2 (COVID-19) virus from nasopharyngeal and nasal swab specimens. In accordance with the FDA's guidance document "Policy for Diagnostic Tests for Coronavirus Disease-2019 during the Public Health Emergency", this test was developed, and its performance characteristics were verified by the [facility] molecular diagnostics laboratory and is authorized for clinical diagnostic use. This laboratory is certified under the Clinical Laboratory Improvement Amendments (CLIA) as qualified to perform high complexity clinical laboratory testing.Fungus Stain & Culture 2021-05-31 20:00:12 Test Item Value Reference Range Interpretation Comments Fungus Culture (test No fungus isolated in 4 code = 580-1) weeks Fungus Stain (test No fungal elements seen code = 658-5) LUCINDA (test code = LUCINDA) Reference value: No fungus isolated [facility] Cath & Coronary Ljncddqribt6026-18-98 16:10:00LT CATH \\T\\ CORONARY ANGIOGRAPHY Invasive Cardiology Report BENNETT IBARRAD Age: 61 Gender: M : 1960 Exam Date: 05/02/2021 14:39 Exam Location: [facility] Ordering Phys: SURINDER ZEPEDA Referring Phys: Surinder Zepeda Reading Phys: Surinder Zepeda Fellow Phys: Terry Wynne M.D. Fellow Phys: Reason For Exam: Indications: CAD Interventional Fellow Phys: Interventional Fellow Phys: ICD-9 Codes: Exam Type: Invasive Cardiology Procedure CPT: 94930 Additional CPT: 36653 09541 29188 Height: BSA: Weight: BP: / HR: Rhythm: Technical Quality: excellent PROCEDURE NOTES History: 61 year old male with tobacco use, HTN, HLD, HFpEF (EF 60-64%), bronchogenic carcinoma s/p open right lower lobectomy, severe PAD with right lower extremity rest pain s/p multiple vascular surgery interventions (L->R fem-fem bypass, b/l CARPENTER and L-SFA endarterectomy with patch angioplasty, right iliofemoral bypass, most recently IR thromolysis of occluded R ileofemoral bypass) who presents with chronic limb ischemia who is planned to undergo right ileofemoral bypass 05/03. Planned [facility] for pre-operative risk stratification. Procedures Performed: After explaining the risks and benefits of the procedure informed consent was obtained. (See nursing notes for medications administered.) The right radial was prepped in a sterile fashion and draped. 2% lidocaine was used to infiltrate the right arm by radial artery. A 6 F terumo slender sheath was placed in the right radial artery using the modified Seldinger technique. Coronary angiography was performed using 6 F JL3.5/JR4 preformed catheters.All catheters were removed over a guide wire. Successful hemostasis at the access site was achieved using a TR band. The case ended without any complications. Estimated blood loss <10ml Access Site:right radial Complications: none Estimated Blood Loss: 10 ml Speciman Removed: No Blood Transfusion: No Device Implanted: No Anesthesia/Sedation: Yes Post ASA Classification: 3 Total Radiation Dose: 560 (mGy) Procedure Staff: Attending: Dr Zepeda Fellow: Sherrell Procedure Notes: After explaining the risks and benefits of the procedure informed consent was obtained. (See nursing notes for medications administered.) The right radial was prepped in a sterile fashion and draped. 2% lidocaine was used to infiltrate the right arm by radial artery. A 6 F terumo slender sheath was placed in the right radial artery using the modified Seldinger technique. Coronary angiography was performed using 6 F JL3.5/JR4 preformed catheters. All catheters were removed over a guide wire. Successful hemostasis atthe access site was achieved using a TR band. The case ended without any complications. Estimated blood loss <10ml Interventional Information: Hemodynamic Data (pressures in mmHg, all other quantities in CGS units) Hemodynamics Findings LVEDP 15 Intervention Information Intervention Summary Left Ventriculography Mitral Stenosis: Mitral Insufficiency: EF: % EF Method: Left Ventriculography Findings Aortography Aortic Stenosis: Aortic Insufficiency: Aortography Findings: Coronary Diagram Dominance: Right Vessel Angiography Findings LM: Large caliber long vessel that gives off a LAD and LCx without significant angiographic disease. LAD: Large caliber vessel that gives off a medium caliber diagonal. At the distal LAD the vessel bifurcates to two small vessels. No significant angiographic disease. LCx: Large caliber vessel that gives off a large caliber OM. No significant angiographic disease. RCA: Large caliber tortuous dominant RCA that gives off a moderate caliber RPDA and a small caliber RPL branches. No significant angiographic disease. Other Angiographic Findings CONCLUSIONS Normal coronary arteries Recommendations Medical management and lifestyle modification Event Log Case Times: Inventory: Procedure Log: Medications: Vital Signs: IMAGE ANCHOR CONTROL - DO NOT REMOVE!!!! Surinder Zepeda (Electronically Signed) Final Date: 08 May 2021 16:09 [facility] Ukedtyp3580-48-75 15:01:54 Test Item Value Reference Range Interpretation Comments Anaerobe Culture (test No anaerobes isolated code = 635-3) in 5 days LUCINDA (test code = LUCINDA) Reference value: No anaerobes isolated [facility] [id number] 15:00:35 Test Item Value Reference Range Interpretation Comments Case Report (test code Surgical Pathology = [id number]) Case: [id number] Authorizing Provider: Yocasta Mills MD Collected: 05/03/2021 12:17 PM Ordering Location: [facility] Med/Surg Received: 05/07/2021 11:22 AM Pathologist: Bradly Hansen MD Specimen: Iliac Artery, right, Right Iliac Artery Graft FINAL DIAGNOSIS (test z3jqvGOpNITkeNI7HvOhAJ code = 23924538) Pqj6alk0XllMAgqILwBIne rKJtihTvlr03nON5dN72VF 6yTHHgLyV2XHKuvlG7Aht5 BKYlTASxiNJhO192i5dgy0 nngfVxgDH3fUcxNYLaqpai GhH7XUdeIJKcqrigQUp2ZR liPYShvPE8ZQIktIDtG7Rw UCKhFZ9rrrs2IIW5IHnzJV GdHoN7NQMhiIClRDRgoWpk QKbpa371MFR3XfTlUNWsvj DmzFeghS4vVsOtLNVJUKsV VCBJTElBQyBBUlRFUlkgR1 QRFoUsCPNZMK7TTTp2CEEd pnv7HDJhDKKPAM9TNReJV8 KqQh0FOZnZFoDYEUXJFtlZ TCBJREVOVElGSUVEXHBhcl a0JMBuSYEUXDKaX6NIV6qB MZ1bYGWvVf0DLLkRD3TTUQ 9OTFlccGFyfQ== Gross Description (test l0powCWoXYDmdCMXOLCgQq code = 59508) qzpoHdRZVggUEbP9Ssxvxl HVqeMD3bXG3wqCycjLNqlB AsUA5XTYYyGhCdQRZqxQEy gkAiPxSkXIVazKCwwGO0ZZ IwJJ9besogITqnPZzvXBXm itI8ISPwxDPrN3BgOJIrAQ 1oyrtyXPU4GPimvP5frnMF KszrKq9djYMcrXcyAbZrQj NoYXJzZXQwXGZuaWwgQXJp YWc2kF2AYuqqKDT7YDTFGy iqLXXdEM5Xa0zwHNDpfMNw BME4DRazzVEpCQZfXXKxYF g1DZMoWQklvAXpBY5gyFbd OovdlFfxf2PvmHIiELjnHM FmEQRsDDzeFGFkRB6FWkZi BV35HNqeCVEqQNq3TGi6WM 6QXoJmXCTmYSO9WgGcUxMp UXk8XGnkJI8SHECoXgbjOM i2TNAmDRS9FTgxHHz6LVGr XFxmIEFyaWFsIFxcZnMgOC TjBKKiHZozqtZ3HUOdCGze XGZzMTYgIFxwYXIgDQpccG rcgO4gCXNjB76fl6VXm3Nv AI3DVRIorzVlsWKybJMaVH C3WuXdALF3ZDV8MRj0uFXa RpDubQadWDwsBSJ2NxTjTQ o6yZKtWiAbhHa1JQYkINX1 FAd9HYf5zNY8BIYxcAn6Ht PhPJI1RpkgIKv0vSu3TERt xQi7NoXuCTM1RZHnVLPfST zfyUJjO8ceKkhrlkCxPDZg DUKotLEcKM2saGLlpHTdQk DaJSIyELTbO9i4AVauaOCi IGFydGVyeSBncmFmdFxwYX MhCOefeTFyMT1UKCHofwUi uTPckNRdWA8PDGqcTFIad1 FafFUjhpPiRLl4TPTwpB4t s76zDHUvlnVdzQKlKZnqRP I4bIRwLUSmPKKoQJDoQH87 N1ZjefTjTAXmOZRCGwgrKU YLV1sBWMtvRSTNXQwRHOKx CF9nUXihWWbufdDyt9TfNU 78dAMxfvTnroWqS4s6YU9b QHBvMKSdvN4xFH30gNBddb BTMjItMDAwMzQsIGFuZCBp cQWgdgNqC8TweSBlmxosMF ZwbVPuCNYtmEMkl1v7lX0b MEZmvg7ejNBmVCpkFIV7bQ UbCSTqNNFqRJ0rHA1noMZb WL7pLHUeU4Tza3kwiqGvaC 1iZXIuXHBhciANClxwYXIg DQpSZWNlaXZlZCBpbiBmb3 JtYWxpbiBsYWJlbGVkICJS SUdIVCBJTElBQyBBUlRFUl grWr2WPUqDLpGFG1FSWbSt riPiYLNlLABgzUUzIK4fnB lvBR9uCUGtT18neI5bLUge wHF7TYJgBN9yGVFoATXiIW BjbSBhbmQgMSBjbSBpbiBk bRSdVFEjanLyTSEcf9PrbV BlfDlhrsN0bTGxvAHrF11l f5xkwLitJeKsJzAknM88bO 7kqChsQWCpfkFdO95weEM5 DEHiQFawHJBLg9EcRQOgt3 SpDDftyj67ADnbIF24aCFj YWJsZSBpbnNjcmlwdGlvbn HdVQUTyeRwZFK6iI5vxyFd waWul0OamNl8dELzNoRpSP zyrbNtYVMmFCbpUKaad8Im ZK9jbHhiTOFGwXoxSBFgl9 TktKCwkQhheS7hoyRwaXQv LiAgXHBhciANClxwYXIgDQ bfNxRtZmDFNS3qVPCdDJTp pLAvHO4TNNG8zD5ff9xut2 DjHNQzvZI5FK94XV4FWWKc KIrhWWJcfIWTUOW6VD0iOD hzmPYipcfoUAPlS3VaA3Ko lyLubKVgMYEunhSpf1hsAK E1PNVomPChoGGoPlJbXfhe DLV8NOmip9myMGD9GSUlyC VsdDAgDQpcZnMxNntcZXBp E8YpJ5WiqyQ3BDf9 Microscopic Description d3uznBHaASMasNK8ErBaTH (test code = 223505129) Tws1mpy8IobZHfoMTxKKzf sOKojyCzta29pQG6aR38GL 2hJWQsFtM9TUIniaA7Ows2 WRWnRRTmyADhR518a3pow8 bxlhKtjAO7JXZiSNXdJ4Ch KD7mGNEilELnM91twMCfAO F9OSRzOWGqnVBhSWLfWMO1 AREcrBKeA1soDOHiSH2apv vtKLmhWXasMJMzcZO2JRZl vYTzM6VzNIYnUOybKJIsve m6AqSwZi9izPXlmBufOGkt YXJkXHBsYWluXGZzMjBcY2 BeMR8knHXnUSOql0QzXAIg XHBhclxmczIyXGNmMFxwYX JcZnMxNlxjZjEgSSBoYXZl ZOVjsoVfcdHunNiysxZ0xO V1LJAlkLmeJLRadLF8LL14 OLBtSDTyprB3xB3zkrLoa0 IgdGhlIHNwZWNpbWVuKHMp LCByZXZpZXdlZCBhbmQgYW dyZWVkIHdpdGggdGhlIHJl k9rcJF05N4NosQqtpodaPW vvvPFvdAFshGE9gR9aBgvt YXJ9 [facility]Abs[facility] Culture & Gram Wndxf4375-09-54 10:13:02 Test Item Value Reference Range Interpretation Comments Wound Culture (test No growth 3 days code = 6463-4) Gram Stain (test No organisms seen code = 664-3) LUCINDA (test code = Reference value: LUCINDA) Non-sterile sites may be contaminated with angelia that is considered normal or otherwise not clinically relevant. As appropriate, normal results will indicate the presence or absence of such angelia. Otherwise, the reference value is considered "No growth". [facility] RBC Units, 2 Ghtej5525-45-46 00:57:00 Test Item Value Reference Range Interpretation Comments RBC UNITS (test code = compatible 39528216) Unit ABO Type (test code = B 36802256) Unit Rh Type (test code = POS 87270195) Product Code (test code = E4545 76298310) Unit Number (test code = [id number] 07194623) Unit Status (test code = released 23846108) ISBT Product Code (test code = W2401K03 91546) Blood Type (test code = 77956) 7300 Blood Expiration Date (test code = 03062) [facility] GLUCOSE POC docked [id number] 17:13:14 Test Item Value Reference Range Interpretation Comments Glucose POC (test code = 98470395) 175 mg/dL 74-106 H Lab Interpretation (test code = Abnormal 24300-4) [facility] HealthcareJustinronavirus, CoVID-19, [id number] 00:33:47 Test Item Value Reference Interpretation Comments Range COVID-19 Detected Not Detected A INTERPRETATION: (SARS-COV-2) (test This isabela ent's code = 50322-1) sample had detectable RNA present for the SARS-CoV-2 Coronavirus (COVID-19). A result with detectable RNA does not indicate the severity of infection. This result should b e interpreted in conjunction wit h clinical, radiographic, and other laboratory findings and should not be used as the lisa e indicator of active infectio n with SARS-CoV-2 Coronavirus (COVID-19). LUCINDA (test code = COMMENT: This elvis LUCINDA) real-time reverse transcriptase polymerase chain reaction (RT-PCR) test rapidly detects SARS-CoV-2 (COVID-19) virus from nasopharyngeal and nasal swab specimens. In accordance with the FDA's guidance document "Policy for Diagnostic Tests for Coronavirus Disease-2019 during the Public Health Emergency", this test was developed, and its performance characteristics were verified by the [facility] molecular diagnostics laboratory and is authorized for clinical diagnostic use. This laboratory is certified under the Clinical Laboratory Improvement Amendments (CLIA) as qualified to perform high complexity clinical laboratory testing. Lab Interpretation Abnormal (test code = 90050-5) [facility]-CoV-2 RNA Resp Ql ZACKERY+gvrkh5770-53-74 00:33:47 Test Item Value Reference Range Interpretation Comments Hospitalized? (test code No = 88282-1) ICU? (test code = No 94103-2) Symptomatic as defined No by CDC? (test code = 97924-7) Employed in Healthcare? No (test code = 00122-0) Resident in a congregate No care setting (including nursing homes, residential care for people with intellectual and developmental disabilities, psychiatric treatment facilities, group homes, board and care homes, homeless correction, foster care or other): (test code = 43533-5) SARS-CoV-2 RNA Resp Ql DETECTED Not Detected A INTER PRETATION: This ZACKERY+probe (test code = jonathon nt's sample had 12623-0) detectable RNA present for the SARS-CoV-2 Coronavirus (COVID-19). A r esult with detectable RNA does not indica te the severity of infection. This result should b e interpreted in conjunction wit h clinical, radiographic, a nd other laborator y findings and sh ould not be used as the sole indicator of active infectio n with SARS-CoV-2 Coronavirus (COVID-19). COMMENT: This elvis real-time reverse transcriptase polymerase chain reaction (RT-PCR) test rapidly detects SARS-CoV-2 (COVID-19) virus from nasopharyngeal and nasal swab specimens. In accordance with the FDA's guidance document "Policy for Diagnostic Tests for Coronavirus Disease-2019 during the Public Health Emergency", this test was developed, and its performance characteristics were verified by the [facility] molecular diagnostics laboratory and is authorized for clinical diagnostic use. This laboratory is certified under the Clinical Laboratory Improvement Amendments (CLIA) as qualified to perform high complexity clinical laboratory testing.POCT CREATININE POC docked [id number] 19:25:19 Test Item Value Reference Range Interpretation Comments Creatinine POC (test 1.2 mg/dL 0.6-1.3 Physici an Notified code = 67386147) eGFR If non- Am 64 See_Comment L [Aut omated message] (test code = 89408773) The s ystem which generated this result transmit shalom reference range : >=90 mL/min/1.7 3 m2. The reference r ovidio was not used to interpret this result as normal/abnormal . eGFR If Am (test 74 See_Comment L [A utomated message] code = 98296634) The system which generated this result transmit shalom reference range : >=90 mL/min/1.7 3 m2. The reference r ovidio was not used to interpret this result as normal/abnormal . Lab Interpretation (test Abnormal code = 32709-8) [facility] BMP POC docked [id number] 19:24:49 Test Item Value Reference Range Interpretation Comments Sodium POC (test code = 142 mmol/L 136-145 43724216) Potassium POC (test code 4.1 mmol/L 3.5-5.1 = 96514387) Chloride POC (test code 103 mmol/L 98-107 = 80649393) TCO2 POC (test code = 33 mmol/L 21-32 H Physic miguel angel Notified 09029765) Urea Nitrogen POC (test 21 mg/dL 7-18 H code = 12826089) Glucose POC (test code = 95 mg/dL 74-106 84803586) Hemoglobin POC (test 18.0 g/dL 12-16 H code = 84115308) Hematocrit POC (test 53.0 % 37.0-47.0 H code = 17967583) Lab Interpretation (test Abnormal code = 83982-7) [place] [address] Lead [id number] 18:57:4412 LEAD EKG FOR [facility] Test Date: [id number] Name: SRIRAM IBARRA Department: 5520Patient ID: [id number] Room: [place] [address]Gender: M Sponge Maker: [id number]: 1960 RequestedBy: AISHA NOE Order Number: [id number] Reading MD: Paris Villagomez MeasurementsIntervals [place] Rate: 102 P: 57PR: 187 QRS: 37QRSD: 86 T: 11QT: 329 QTc: 388 Interpretive StatementsSINUS TACHYCARDIANONSPECIFIC T-WAVE ABNORMALITYABNORMAL RHYTHM ECGElectronically Signed On 05-01-2021 19:55:34 SERVICES TECH by Paris MarrufoHoly Redeemer HospitalRS-CoV-2 RNA Resp Ql ZACKERY+[id number] 07:18:01 Test Item Value Reference Range Interpretation Comments Hospitalized? (test Yes code = 05586-0) ICU? (test code = No 17974-7) Symptomatic as defined No by CDC? (test code = 47228-8) Employed in No Healthcare? (test code = 07822-9) Resident in a No congregate care setting (including nursing homes, residential care for people with intellectual and developmental disabilities, psychiatric treatment facilities, group homes, board and care homes, homeless correction, foster care or other): (test code = 65446-7) SARS-CoV-2 RNA Resp Ql NOT DETECTED Not Detected INTER PRETATION: No ZACKERY+probe (test code = detec table levels 06427-0) of SARS-CoV-2 Coronavirus (COVID-19) were present in this patient's sampl e by this test. A no t detected result does not exclud e the possibility of active infectio n with this virus due to other factor s that may affect the results such as a poorly collecte d sample, viral titers below th e limit of detect ion of the assay, a nd the infrequent possibility of inhibitors in t he sample. This re sult should be interpreted in conjunction wit h clinical, radiographic, a nd other laborator y findings and sh ould not be used as the sole indicator of active infectio n with SARS-CoV-2 Coronavirus (COVID-19). COMMENT: This elvis real-time reverse transcriptase polymerase chain reaction (RT-PCR) test rapidly detects SARS-CoV-2 (COVID-19) virus from nasopharyngeal and nasal swab specimens. In accordance with the FDA's guidance document "Policy for Diagnostic Tests for Coronavirus Disease-2019 during the Public Health Emergency", this test was developed, and its performance characteristics were verified by the [facility] molecular diagnostics laboratory and is authorized for clinical diagnostic use. This laboratory is certified under the Clinical Laboratory Improvement Amendments (CLIA) as qualified to perform high complexity clinical laboratory testing.ACTIVATED PARTIAL THRMPLAS [id number] 20:27:47 Test Item Value Reference Range Interpretation Comments APTT Patient (test See_Comment [Automat ed code = 3173-2) message] The system which generated this result transmitted reference range : 23 - 38 Seconds . The reference range was not used to interpr et this result as normal/abnormal . LUCINDA (test code = LUCINDA) The [facility] patient population mean normal value for aPTT is 30 seconds. Lab Interpretation Normal (test code = 59544-9) [facility] StationPROTHROMBIN TIME / [id number] 20:25:26 Test Item Value Reference Range Interpretation Comments PROTIME PATIENT (test See_Comment [Auto mated message] code = 5964-2) The system wh ich generated this result transmitted ref erence range: 12.0 - 1 4.7 Seconds. The re ference range was not u sed to interpret this result as normal/abnor mal. INR (test code = 6301-6) Nor mal INR <1.1; Warfarin Therap eutic range 2.0 to 3. 0 or 2.5 to 3.5, dep ending upon the indica tions. Lab Interpretation (test Normal code = 21040-5) [facility] StationTROPONIN [id number] 20:18:03 Test Item Value Reference Interpretation Comments Range TROPONIN I (test 0.003 ng/mL See_Comment [Automated code = 1446944106) message] The system which generated this result transmitted reference range : <=0.034. The reference range was not used to interpret this result as normal/abnormal . LUCINDA (test code = Reference (Normal) LUCINDA) Range (defined by the 99th percentile reference limit): <= 0.034 ng/mL Note: Cardiac troponin begins to rise 3-4 hours after the onset of ischemia. Repeat in 4-6 hours if the sample was drawn within 3-4 hours of the onset of the symptom and found normal. Diagnosis of myocardial injury is made with acute changes in cTn concentrations with at least one serial sample above the 99th percentile upper reference limit (URL), taken together with the patient's clinical presentation. Biotin has been reported to cause a negative bias, interpret results relative to patient's use of biotin. Lab Interpretation Normal (test code = 87974-5) [facility] StationN-TERMINAL [id number] 20:15:02 Test Item Value Reference Range Interpretation Comments NT-proBNP (test code 213 pg/mL See_Comment H [Autom ated = 9788211958) message] The system which generated this result transmitted reference range : <=125. The reference range was not used to interpret this result as normal/abnormal . LUCINDA (test code = LUCINDA) Biotin has been reported to cause a negative bias, interpret results relative to patient's use of biotin. Lab Interpretation Abnormal (test code = 20498-0) [facility] StationCOMP. METABOLIC PANEL (16843)2021-03-07 20:06:41 Test Item Value Reference Range Interpretation Comments NA (test code = 137 mmol/L 135-145 2367363127) K (test code = 4.5 mmol/L 3.5-5.0 0378355451) CL (test code = 105 mmol/L 98-108 3959215387) CO2 TOTAL (test code = 26 mmol/L 23-31 5566805446) AGAP (test code = 2-16 9144003013) BUN (test code = 10 mg/dL 7-23 3495453504) GLUCOSE (test code = 102 mg/dL 70-110 9184988656) CREATININE (test code = 1.07 mg/dL 0.60-1.25 1154144805) TOTAL BILI (test code = 0.7 mg/dL 0.1-1.9 1019436114) CALCIUM (test code = 9.5 mg/dL 8.6-10.6 7231052157) T PROTEIN (test code = 6.5 g/dL 6.3-8.2 5804468313) ALBUMIN (test code = 3.4 g/dL 3.5-5.0 L 0841483449) ALK PHOS (test code = 111 U/L 34-122 9149352310) ALTv (test code = 26 U/L 5-50 2-6) AST(SGOT) (test code = 42 U/L 13-40 H 9726336056) eGFR (test code = mL/min/1.73m2 3997438257) LUCINDA (test code = LUCINDA) Association of Glomerular Filtration Rate (GFR) and Staging of Kidney Disease* + --+ --+ ------+| GFR (mL/min/1.73 m2) ?| With Kidney Damage ?| ?Without Kidney Damage+ --------+ --------+ +| ?>90 ?| ?Stage one ?| ? Normal ?+ ---+ ---+ -------+| ?60-89 ?| ?Stage two ?| ? Decreased GFR ? + --+ --+ ------+| ?30-59 ?| ?Stage three ?| ? Stage three ? + --+ --+ ------+| ?15-29 ?| ?Stage four ? | ? Stage four ?+ ---+ ---+ -------+| ?<15 (or dialysis) ? ?| ?Stage five ? | ? Stage five ?+ ---+ ---+ -------+ *Each stage assumes the associated GFR level has been in effect for at least three months. ?Stages 1 to 5, with or without kidney disease, indicate chronic kidney disease. Notes: Determination of stages one and two (with eGFR >59mL/min/1.73 m2) requires estimation of kidney damage for at least three months as defined by structural or functional abnormalities of the kidney, manifested by either:Pathological abnormalities or Markers of kidney damage (including abnormalities in the composition of the blood or urine or abnormalities in imaging tests). Lab Interpretation Abnormal (test code = 59323-0) [facility] StationLIPASE2021-11-03 20:06:20 Test Item Value Reference Range Interpretation Comments LIPASE (test code = 8901131959) 28 U/L 0-220 Lab Interpretation (test code = Normal 26367-6) [facility] StationCB WITH [id number] 19:56:15 Test Item Value Reference Range Interpretation Comments WBC (test code = See_Comment L [Automated 6690-2) message] The sy stem which generated this result transmitted reference range : 4.20 - 10.70 10*3/?L. The reference range was not used to interpret this result as normal/abnormal . RBC (test code = See_Comment [Automated 789-8) message] The sy stem which generated this result transmitted reference range : 4.26 - 5.52 10*6/?L. The reference range was not used to interpret this result as normal/abnormal . HGB (test code = 14.3 g/dL 12.2-16.4 718-7) HCT (test code = 44.0 % 38.4-49.3 4544-3) MCV (test code = 99.1 fL 81.7-95.6 H 787-2) MCH (test code = 32.2 pg 26.1-32.7 785-6) MCHC (test code = 32.5 g/dL 31.2-35.0 786-4) RDW-SD (test code = 53.6 fL 38.5-51.6 H 71314-4) RDW-CV (test code = 14.6 % 12.1-15.4 788-0) PLT (test code = See_Comment H [Automated 777-3) message] The sy stem which generated this result transmitted reference range : 150 - 328 10*3/ ?L. The reference r ovidio was not used to interpret this result as normal/abnormal . MPV (test code = 9.5 fL 9.8-13.0 L 17159-1) NRBC/100 WBC (test See_Comment [Automat ed code = 0979291688) message] The system which generated this result transmitted reference range : 0.0 - 10.0 /100 WBCs. The refer ence range was not u sed to interpret th is result as normal/abnormal . NRBC x10^3 (test code <0.01 See_Comment [Auto mated = 0391404413) message] The s ystem which generated this result transmitted reference range : 10*3/?L. The reference range was not used to interpret this result as normal/abnormal . GRAN MAT (NEUT) % 60.2 % (test code = 770-8) IMM GRAN % (test code 0.30 % = 0925870625) LYMPH % (test code = 26.9 % 736-9) MONO % (test code = 9.1 % 5905-5) EOS % (test code = 1.5 % 713-8) BASO % (test code = 2.0 % 706-2) GRAN MAT x10^3(ANC) 2.06 10*3/uL 1.99-6.95 (test code = 1870093661) IMM GRAN x10^3 (test <0.03 0.00-0.06 code = 3919499361) LYMPH x10^3 (test code 0.92 10*3/uL 1.09-3.23 L = 731-0) MONO x10^3 (test code 0.31 10*3/uL 0.36-1.02 L = 742-7) EOS x10^3 (test code = 0.05 10*3/uL 0.06-0.53 L 711-2) BASO x10^3 (test code 0.07 10*3/uL 0.01-0.09 = 704-7) Lab Interpretation Abnormal (test code = 17251-1) [facility] StationLactic Acid Whole [id number] 19:51:39 Test Item Value Reference Range Interpretation Comments LACTIC ACID (test code = 1.46 mmol/L 0.50-2.20 2103734655) Lab Interpretation (test code = Normal 97589-2) [facility] StationSARS-CoV-2 ORF1ab Resp Ql ZACKERY+[id number] 20:18:30 Test Item Value Reference Range Interpretation Comments SARS-CoV-2 ORF1ab NOT DETECTED Not Detected INTERPRETA TION: No Resp Ql ZACKERY+probe detectable levels of (test code = SARS-CoV-2 Araceli navirus 10802-6) (COVID-19) were present in this patient 's sample by this test. A not detected result does not exclude the pos sibility of active infec tion with this virus due to other factors that ma y affect the results suc h as a poorly collecte d sample, viral titers be low the limit of detect ion of the assay, and the infrequent poss ibility of inhibitors i n the sample. This re sult should be inter preted in conjunction wit h clinical, radio graphic, and other labor atory findings and sh ould not be used as the sole indicator of ac tive infection with SARS-CoV-2 Araceli navirus (COVID-19). COMMENT: This [employer] SARS-CoV-2 molecular diagnostic assay utilizes Cane Burner Mediated Amplification (TMA) technology to rapidly detect the SARS-CoV-2 (COVID-19) virus from respiratory samples. In accordance with the FDA's guidance document "Policy for Diagnostic Tests for Coronavirus Disease- 2019 during the Public Health Emergency", this test was developed, and its performance characteristics were verified by the [facility] molecular diagnostics laboratory and is authorized for clinical diagnostic use. This laboratory is certified under the Clinical Laboratory Improvement Amendments (CLIA) as qualified to perform high complexity clinical laboratory testing.NONINVASV EXTREM EXAM,ASHER,[id number] 10:42:00NONINVASV EXTREM EXAM,FANNIE STERLING Lower Extremity Segmental Pressures Report Name: SRIRAM IBARRA Age: 60 Gender: M : 1960 Exam Date: 02/02/2021 10:20 Exam Location: [facility] Ordering Phys: YOCASTA MILLS (shilpa/feliz) Referring Phys: Reading Phys: Yocasta Mills MD Fellow Phys: Fellow Phys: Technologist: Lauryn Griffith RVT Reason For Exam: Indication: bypass graft surveillance (h/o Right iliofemoral bypass 12/2019, Left CARPENTER-Pop 2017, L->R fem-fem 2013) ICD-9 Codes: Exam Type: LE Segmental Pressures Procedure CPT: 84677 Additional CPT: Risk Factors: Smoking History: The patient was identified by stating his full name and date of -fjio-wx-jzcsz femorofemoral bypass (2013), -bilateral common femoral artery endarterectomies with patch angioplasties (2016) exploration and embolectomy of the left popliteal, AT, and PT arteries (2016) -left common femoral artery to popliteal artery bypass using ipsilateral reversed GSV (2017). Previous Vascular Surgery: YES RIGHTSegmental Pressures (mmHg) Ankle/Brachial Index Brachial 129 High Thigh Low Thigh Calf Posterior Rbvixl77 0.667 Dorsalis Pedis77 0.597 Peroneal Metatarsal Toe Pressure CRISTINA: 0.667 TBI: LEFT Segmental Pressures (mmHg) Ankle/Brachial Index Brachial 128 High Thigh Low Thigh Calf Posterior Txcltd80 0.612 Dorsalis Pedis88 0.682 Peroneal Metatarsal Toe Pressure CRISTINA: 0.68 TBI: FINDINGS Bilateral CRISTINA suggests moderate arterial occlusive disease. There are changes since last exam on 04/07/2020; there is a decrease in left CRISTINA however still in the moderate range. Right CRISTINA 0.63 vs 0.67 Left CRISTINA 0.58 vs 0.68 See arterial graft duplex report. The results of this study are: CONCLUSIONS Bilateral CRISTINA suggests mo derate arterial occlusive disease. There are changes since last exam on 04/07/2020; there is a decrease in left CRISTINA however still in the moderate range. Yocasta Mills MD (Electronically Signed) Final Date: 14 February 2021 10:41 [facility] Doppler Lower Extremity Art Osxbkxjbr6694-12-87 10:41:00 DUPLEX DOPPLER LOWER EXTREMITY ART BILATERAL Lower Extremity Arterial Graft Report SRIRAM IBARRA Age: 60 Gender: M : 1960 Exam Date: 02/02/2021 09:37 Exam Location: [facility] Ordering Phys: YOCASTA MILLS ([facility]/feliz) Referring Phys: Reading Phys: Yocasta Mills MD Fellow Phys: Fellow Phys: Technologist: John Griffith RVT Reason For Exam: Indication: bypass graft surveillance (h/o Right iliofemoral bypass 12/2019, Left CARPENTER-Pop 2017, L->R fem-fem 2013), Thrombosis of vascular prosthetic devices, implants and grafts, initial encounter, Other specified complication of vascular prosthetic devices, implants and grafts, initial encounter ICD-9 Codes: T82.868A T82.898A Exam Type: LE Arterial Graft Duplex Procedure CPT: 32336 Additional CPT: Risk Factors: Smoking History: The patient was identified by stating his full name and date of . Ombl-ns-hnddj femorofemoral bypass (2013) Bilateral common femoral artery endarterectomies with patch angioplasties (2017),Exploration and embolectomy of the left popliteal, AT, and PT arteries (2017) Left common femoral artery topopliteal artery bypass using ipsilateral reversed GSV (2018) Previous Vascular Surgery: YES RIGHT LEFT Velocity Velocity (cm/s) (cm/s) Ratio Ratio 69 [place] Artery 80 Prox Anast Prox Graft 70 Prox/Mid Graft Mid Graft 64 Mid Graft Mid/Dist Graft 75 Dist Graft 245 Dist Anast [place] Artery FINDINGS There is patency of the right ilio-femoral bypass Dacron graft with elevated velocity at the distal anastomosis. Right CARPENTER = 236 cm/sec Right prox SFA = 102 cm/sec Right SFA mid thigh = 37 cm/sec Right SFAdist thigh = 46 cm/sec Right SFA occlusion with large collaterals There is absence of colorflow and Doppler signals in the left femoral to right femoral bypass suggestive of occlusion. Left CARPENTER = 238 cm/sec Left CARPENTER to pop A bypass using ipsilateral reversed GSV was not visualized, suggestive of occlusion. There are multiple large collaterals noted in the left lower thigh. Further imaging may be recom mended. See CRISTINA report. The results of this study are: CONCLUSIONS There is patency of the right ilio-femoral bypass Dacron graft with elevated velocity at the distal anastomosis. Left CARPENTER to pop A bypass using ipsilateral reversed GSV was not visualized, suggestive of occlusion. RECOMMENDATIONS Additional imaging. Yocasta Mills MD (Electronically Signed) Final Date: 14 February 2021 10:40 [facility] ABDOMEN PELVIS W [id number] 07:19:25 1. Changes of bypass graft along the ventral lower abdomen/upper pelvicabdominal wall. There is no contrast within the bypass graft whichdemonstrates abnormal contours with rim enhancement. This couldbesecondary to chronic thrombus, though differential would include abscessformation. Correlate clinically. 2. Small fat-containing umbilical hernia. RL: 6200AFC: 33825 Patient name: SRIRAM CHASE: 1960 60 years EXAMINATION: CT ABDOMEN PELVIS W CONTRAST Ordering Physician: CHARMAINE OQUENDO CLINICAL HISTORY:Abdominal pain, hernia suspected COMPARISON:None TECHNIQUE:Helical CT images of the abdomen and pelvis were performed from the trevon ngbases to the proximal femurs using 5 mm slice thickness after theadministration of IV contrast. Coronal and sagittal reconstruction wasperformed. Dose reduction technology was utilized.. FINDINGS:Theliver is normal in size and morphology without discrete lesions. Nocalcified gallstones. The spleen is normal. No pancreatic lesions orinflammatory changes. The adrenal glands are normal. Both kidneys enhance symmetrically without discrete lesions. No stones orhydronephrosis. Urinary bladder is grossly normal. No hiatal hernia or esophageal thickening. No discrete gastric thickeningor surrounding infl ammatory changes. The large and small bowel are normalin caliber and wall thickness. The appendix isnormal. No free fluid or abscess. No adenopathy. Aorta is normal in caliber. No acute osseous abnormality. Changes of femoral bypass graft noted along the anterior aspect of thelower abdomen/pelvic wall with rim enhancement and central low attenuationmeasuring approximately 13.3 x 2.7 cm (axial by AP). No contrast notedwithin the bypass graft anteriorly. Postop changes in the bilateral groin.There issevere stenosis of the visualized right femoral artery.. The lungbases are clear. [facility], Radiant Results Inft User - 08/16/2020 2:20 AM CDTPatient name: SRIRAM CHASE: 1960 60 years EXAMINATION: CT ABDOMEN PELVIS W CONTRASTOrdering Physician: CHARMAINE OQUENDO CLINICAL HISTORY:Abdominal pain, hernia suspected COMPARISON:NoneTECHNIQUE:Helical CT images of the abdomen and pelvis were performed from the lungbases to the proximal femurs using 5 mm slice thickness after theadministration of IV contrast. Coronal and sagittal reconstruction wasperformed. Dose reduction technology was utilized..FINDINGS:The liver is normal in size and morphology without discrete lesions. Nocalcified gallstones. Thespleen is normal. No pancreatic lesions orinflammatory changes. The adrenal glands are normal.Both kidneys enhance symmetrically without discrete lesions. No stones orhydronephrosis. Urinary bladder isgrossly normal.No hiatal hernia or esophageal thickening. No discrete gastric thickeningor surrounding inflammatory changes. The large and small bowel are normalin caliber and wall thickness. The appendix is normal.No free fluid or abscess. No adenopathy. Aorta is normal in caliber.No acute osseous abnormality.Changes of femoral bypass graft noted along the anterior aspect of thelower abdomen/pelvic wall with rim enhancement and central low attenuationmeasuring approximately 13.3 x 2.7 cm (axial by AP). No contrast notedwithin the bypass graft anteriorly. Postop changes in the bilateral groin.Thereis severe stenosis of the visualized right femoral artery.. The lungbases are clear.IMPRESSION1. Changes of bypass graft along the ventral lower abdomen/upper pelvicabdominal wall. There is no contrastwithin the bypass graft whichdemonstrates abnormal contours with rim enhancement. This could besecondary to chronic thrombus, though differential would include abscessformation. Correlate clinically.2.Small fat-containing umbilical hernia.RL: 6200AF: 26692 [facility]. METABOLIC PANEL (42188)2020-08-16 04:32:43 Test Item Value Reference Range Interpretation Comments NA (test code = 140 mmol/L 135-145 9133356711) K (test code = 3.9 mmol/L 3.5-5.0 4926405058) CL (test code = 110 mmol/L 98-108 H 7423156419) CO2 TOTAL (test code = 26 mmol/L 23-31 8599254487) AGAP (test code = 2-16 4357584303) BUN (test code = 12 mg/dL 7-23 7632216233) GLUCOSE (test code = 84 mg/dL 70-110 3462893806) CREATININE (test code = 0.83 mg/dL 0.60-1.25 4052074716) TOTAL BILI (test code = 0.5 mg/dL 0.1-1.3 6022791012) CALCIUM (test code = 8.5 mg/dL 8.6-10.6 L 1501607448) T PROTEIN (test code = 6.0 g/dL 6.3-8.2 L 4665239260) ALBUMIN (test code = 3.5 g/dL 3.5-5.0 1638785062) ALK PHOS (test code = 97 U/L 34-122 2889369534) ALTv (test code = 8 U/L 5-50 1742-6) AST(SGOT) (test code = 24 U/L 13-40 4834294232) eGFR (test code = mL/min/1.73m2 7999879667) LUCINDA (test code = LUCINDA) Association of Glomerular Filtration Rate (GFR) and Staging of Kidney Disease* + --+ --+ ------+| GFR (mL/min/1.73 m2) ?| With Kidney Damage ?| ?Without Kidney Damage+ --------+ --------+ +| ?>90 ?| ?Stage one ?| ? Normal ?+ ---+ ---+ -------+| ?60-89 ?| ?Stage two ?| ? Decreased GFR ? + --+ --+ ------+| ?30-59 ?| ?Stage three ?| ? Stage three ? + --+ --+ ------+| ?15-29 ?| ?Stage four ? | ? Stage four ?+ ---+ ---+ -------+| ?<15 (or dialysis) ? ?| ?Stage five ? | ? Stage five ?+ ---+ ---+ -------+ *Each stage assumes the associated GFR level has been in effect for at least three months. ?Stages 1 to 5, with or without kidney disease, indicate chronic kidney disease. Notes: Determination of stages one and two (with eGFR >59mL/min/1.73 m2) requires estimation of kidney damage for at least three months as defined by structural or functional abnormalities of the kidney, manifested by either:Pathological abnormalities or Markers of kidney damage (including abnormalities in the composition of the blood or urine or abnormalities in imaging tests). Lab Interpretation Abnormal (test code = 07029-0) [facility] YfpkooRYKGLTXJOJ2864-10-71 04:19:53 Test Item Value Reference Range Interpretation Comments APPEARANCE (test code = Clear Clear 0373366969) COLOR (test code = Straw Yellow A [id number]) PH (test code = 4.8-8.0 0109353563) SP GRAVITY (test code = 1.003-1.030 7915287224) GLU U QUAL (test code = Normal Normal 1595597551) BLOOD (test code = Negative Negative 0038267941) KETONES (test code = Negative Negative 8164949035) PROTEIN (test code = Negative Negative 2887-8) UROBILIN (test code = Normal Normal 7997657749) BILIRUBIN (test code = Negative Negative 1631788388) NITRITE (test code = Negative Negative 7693243273) LEUK MARBELLA (test code = Negative Negative 9308403867) RBC/HPF (test code = <1 See_Comment [Autom ated message] 6583534304) The system [employer] generated this result transmitted ref erence range: 0 - 3 HP F. The reference range was not used to int erpret this result as normal/abnormal . WBC/HPF (test code = See_Comment [Autom ated message] [id number]) The system [employer] generated this result transmitted ref erence range: 0 - 5 HP F. The reference range was not used to int erpret this result as normal/abnormal . BACTERIA (test code = Negative Negative 0088917132) Lab Interpretation (test Abnormal code = 16584-4) [facility] WITH [id number] 03:57:39 Test Item Value Reference Range Interpretation Comments WBC (test code = See_Comment [Automated 6690-2) message] The sy stem which generated this result transmitted reference range : 4.20 - 10.70 10*3/?L. The reference range was not used to interpret this result as normal/abnormal . RBC (test code = See_Comment [Automated 009-8) message] The sy stem which generated this result transmitted reference range : 4.26 - 5.52 10*6/?L. The reference range was not used to interpret this result as normal/abnormal . HGB (test code = 14.4 g/dL 12.2-16.4 718-7) HCT (test code = 42.6 % 38.4-49.3 4544-3) MCV (test code = 95.7 fL 81.7-95.6 H 787-2) MCH (test code = 32.4 pg 26.1-32.7 785-6) MCHC (test code = 33.8 g/dL 31.2-35.0 786-4) RDW-SD (test code = 50.4 fL 38.5-51.6 92375-9) RDW-CV (test code = 14.3 % 12.1-15.4 788-0) PLT (test code = See_Comment H [Automated 777-3) message] The sy stem which generated this result transmitted reference range : 150 - 328 10*3/ ?L. The reference r ovidio was not used to interpret this result as normal/abnormal . MPV (test code = 9.1 fL 9.8-13.0 L 66905-0) NRBC/100 WBC (test See_Comment [Automat ed code = 0570563077) message] The system which generated this result transmitted reference range : 0.0 - 10.0 /100 WBCs. The refer ence range was not u sed to interpret th is result as normal/abnormal . NRBC x10^3 (test code <0.01 See_Comment [Auto mated = [id number]) message] The s ystem which generated this result transmitted reference range : 10*3/?L. The reference range was not used to interpret this result as normal/abnormal . GRAN MAT (NEUT) % 53.7 % (test code = 770-8) IMM GRAN % (test code 0.20 % = 1603755219) LYMPH % (test code = 34.6 % 736-9) MONO % (test code = 8.0 % 5905-5) EOS % (test code = 2.7 % 713-8) BASO % (test code = 0.8 % 706-2) GRAN MAT x10^3(ANC) 2.76 10*3/uL 1.99-6.95 (test code = 5222200572) IMM GRAN x10^3 (test <0.03 0.00-0.06 code = 4847599153) LYMPH x10^3 (test code 1.78 10*3/uL 1.09-3.23 = 731-0) MONO x10^3 (test code 0.41 10*3/uL 0.36-1.02 = 742-7) EOS x10^3 (test code = 0.14 10*3/uL 0.06-0.53 711-2) BASO x10^3 (test code 0.04 10*3/uL 0.01-0.09 = 704-7) Lab Interpretation Abnormal (test code = 29712-9) [facility]
[2021-12-06] MEDS ORDERED: FLEET ENEMA ADULT PR ONE (00:05)
[2021-12-06] MEDS ORDERED: NA CHLORIDE 0.9% 1,000 ML ONE (00:05)
--- NOTE | 2021-12-06 00:27 | EDPHYS ---
Physician Documentation [facility] Name: Rene James Age: 61 yrs Sex: Male : 1960 Arrival Date: 12/05/2021 Time: 23:22 Bed 7 Private MD: ED Physician Oni Murguia HPI: 12/06 00:09 This 61 yrs old Black Male presents to ER via Wheelchair with complaints of rn Constipation. 00:09 The patient presents to the emergency department with constipation. Onset: The rn symptoms/episode began/occurred 4 day(s) ago. Possible causes: pain medication. The symptoms are aggravated by nothing. The symptoms are alleviated by nothing. Severity of symptoms: At their worst the symptoms were moderate in the emergency department the symptoms are unchanged. The patient has experienced similar episodes in the past. The patient has been recently seen by a physician:. Pt reports chronic constipation due to pain medication, no BM for 4 days, is passing gas, no vomiting or fever. Reports has happened multiple times in past and resolves after enema. Has never had intestinal blockage. No abd distension.. Historical: - Allergies: 12/05 23:42 Tape; tw5 - PMHx: 23:42 vascular disease; lung cancer; tw5 - Immunization history:: Flu vaccine status is unknown. - Social history:: Smoking status: Patient reports the use of cigarette tobacco products, denies chronic smoking, but will smoke occasionally. - Family history:: not pertinent. - Hospitalizations: : Patient was recently seen at. ROS: 12/06 00:09 Constitutional: Negative for fever, chills, and weight loss, Cardiovascular: Negative rn for chest pain, palpitations, and edema, Respiratory: Negative for shortness of breath, cough, wheezing, and pleuritic chest pain, Abdomen/GI: + constipation, neg for vomiting Back: Negative for injury and pain, MS/Extremity: Negative for injury and deformity, Neuro: Negative for headache, weakness, numbness, tingling, and seizure. Exam: 00:09 Constitutional: This is a well developed, well nourished patient who is awake, alert, rn and in no acute distress. Cardiovascular: Tachycardic, regular Respiratory: No increased work of breathing, no retractions or nasal flaring. Abdomen/GI: soft, non-tender, non-distended Skin: Warm, dry Vital Signs: 12/05 23:40 BP 133 / 83; Pulse 102; Resp 18; Temp 97.6; Pulse Ox 100% on R/A; Weight 68.04 kg (R); tw5 Height 6 ft. (182.88 cm); Pain 10/10; 12/06 00:39 BP 132 / 68; Pulse 84; Resp 20; Pulse Ox 97% on R/A; Pain 0/10; kl 12/05 23:40 Body Mass Index 20.34 (68.04 kg, 182.88 cm) tw5 MDM: 12/05 23:33 Patient medically screened. rn 12/06 00:24 Differential diagnosis: constipation. Data reviewed: vital signs, nurses notes, and as rn a result, I will discharge patient. Counseling: I had a detailed discussion with the patient and/or guardian regarding: the historical points, exam findings, and any diagnostic results supporting the discharge/admit diagnosis, the need for outpatient follow up, to return to the emergency department if symptoms worsen or persist or if there are any questions or concerns that arise at home. Response to treatment: the patient's symptoms have markedly improved after treatment, and as a result, I will discharge patient. Special discussion: I discussed with the patient/guardian in detail that at this point there is no indication for admission to the hospital. It is understood, however, that if the symptoms persist or worsen the patient needs to return immediately for re-evaluation. ED course: Pt improved, had large bowel movement, is happy with care, will dc home. Has already stopped pain medication.. Administered Medications: 00:13 Drug: Fleet Enema (sodium phosphate) 133 ml Route: SD; kl 00:39 Follow up: Response: Marked relief of symptoms; Pain is decreased kl 00:27 Not Given (Physician Discretion): NS 0.9% 1000 ml IV at 1 bolus Per protocol; 1000 mL kl bolus Disposition Summary: 12/06/21 00:26 Discharge Ordered Location: Home rn Problem: chronic rn Symptoms: have improved rn Condition: Stable rn Diagnosis - Constipation, unspecified rn Followup: rn - With: Private Physician - When: As needed - Reason: Recheck today's complaints, Re-evaluation by your physician Discharge Instructions: - Discharge Summary Sheet rn - Constipation, Adult rn Forms: - Medication Reconciliation Form rn - Thank You Letter rn - Antibiotic director of government sales - Prescription Opioid Use rn Signatures: Dispatcher [employer] EDMary Tobar, Oni Rothman RN, MD MD rn Wood, Tiffany tw5 Corrections: (The following items were deleted from the chart) 12/05 23:43 23:42 Allergies: No Known Allergies; tw 23:53 23:43 CBC+H.LAB.BRZ ordered. EDMS EDMS 23:53 23:43 COMPREHENSIVE METABOLIC PANEL+C.LAB.BRZ ordered. EDMS EDMS 23:53 23:43 LIPASE+C.LAB.BRZ ordered. EDMS EDMS 23:53 23:46 CBC+H.LAB.BRZ reviewed. chris KAUFFMAN 12/06 00:27 12/05 23:42 IV Saline Lock ordered. chris ventura 12/06 00:27 12/05 23:42 Labs collected and sent ordered. chris ventura 12/06 00:27 12/05 23:43 Abdomen Pelvis W Con+CT.RAD.BRZ ordered. EDMS EDMS
--- NOTE | 2021-12-06 00:27 | ER ---
Nurse's Notes [facility] Name: Rene James Age: 61 yrs Sex: Male : 1960 Arrival Date: 12/05/2021 Time: 23:22 Bed 7 Private MD: Diagnosis: Constipation, unspecified Presentation: 12/05 23:40 Chief complaint: Patient states: "I am constipated ma'am. Probably from the pain tw5 medication.". Coronavirus screen: Vaccine status: Patient reports receiving the 1st dose of the Covid vaccine. J [employer] J. Ebola Screen: Patient negative for fever greater than or equal to 101.5 degrees Fahrenheit, and additional compatible Ebola Virus Disease symptoms Patient denies exposure to infectious person. Patient denies travel to an Ebola-affected area in the 21 days before illness onset. Initial Sepsis Screen: Does the patient meet any 2 criteria? HR > 90 bpm. Does the patient have a suspected source of infection? No. Patient's initial sepsis screen is negative. Risk Assessment: Do you want to hurt yourself or someone else? Patient reports no desire to harm self or others. Onset of symptoms is unknown. 23:40 Method Of Arrival: Wheelchair tw5 23:40 Acuity: LUBA 3 tw5 12/06 00:14 Note pt prefers to have enema and wait on IV start Enema administered. kl Triage Assessment: 12/05 23:42 General: Appears uncomfortable, Behavior is calm, cooperative, appropriate for age. tw5 Pain: Pain currently is 8 out of 10 on a pain scale. GI: Reports constipation. Historical: - Allergies: 23:42 Tape; tw5 - PMHx: 23:42 vascular disease; lung cancer; tw5 - Immunization history:: Flu vaccine status is unknown. - Social history:: Smoking status: Patient reports the use of cigarette tobacco products, denies chronic smoking, but will smoke occasionally. - Family history:: not pertinent. - Hospitalizations: : Patient was recently seen at. Screenin:44 Abuse screen: Denies threats or abuse. Denies injuries from another. Nutritional tw5 screening: No deficits noted. Tuberculosis screening: No symptoms or risk factors identified. Fall Risk Secondary diagnosis (15 points). Assessment: 12/06 00:15 General: Appears distressed, uncomfortable, Behavior is anxious, restless. Pain: Complains of pain in left upper quadrant and left lower quadrant Pain currently is 10 out of 10 on a pain scale. Neuro: No deficits noted. Conteh Agitation-Sedation Scale (RASS): +1 Restless. Cardiovascular: No deficits noted. Respiratory: No deficits noted. Airway is patent Trachea midline Respiratory effort is even, unlabored. GI: Bowel sounds present X 4 quads. Abdomen is tender to palpation in left upper quadrant and left lower quadrant. : No deficits noted. No signs and/or symptoms were reported regarding the genitourinary system. EENT: No deficits noted. No signs and/or symptoms were reported regarding the EENT system. 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 Vital Signs: 12/05 23:40 BP 133 / 83; Pulse 102; Resp 18; Temp 97.6; Pulse Ox 100% on R/A; Weight 68.04 kg (R); tw5 Height 6 ft. (182.88 cm); Pain 10/10; 12/06 00:39 BP 132 / 68; Pulse 84; Resp 20; Pulse Ox 97% on R/A; Pain 0/10; kl 12/05 23:40 Body Mass Index 20.34 (68.04 kg, 182.88 cm) tw5 ED Course: 12/05 23:22 Patient arrived in ED. ja2 23:32 Oni Murguia MD is Attending Physician. rn 23:42 Triage completed. tw5 23:42 Arm band placed on right wrist. tw5 12/06 00:39 No provider procedures requiring assistance completed. Patient did not have IV access kl during this emergency room visit. Administered Medications: 00:13 Drug: Fleet Enema (sodium phosphate) 133 ml Route: MA; kl 00:39 Follow up: Response: Marked relief of symptoms; Pain is decreased kl 00:27 Not Given (Physician Discretion): NS 0.9% 1000 ml IV at 1 bolus Per protocol; 1000 mL kl bolus Outcome: 00:26 Discharge ordered by . rn 00:40 Patient left the ED. kl Signatures: Mary Elam RN RN kl Nieto, Roman, MD MD rn Alexander, Jessica ja2 Wood, Tiffany tw5 Corrections: (The following items were deleted from the chart) 12/05 23:43 23:42 Allergies: No Known Allergies; tw5 tw5
[2021-12-06 02:58] VITALS: TEMP 97.6
[2021-12-06 03:00] VITALS: BP 132/68; O2SAT 97
== END 2021-12-06 00:40 | disposition home or self-care (01) ==
LOC: ER 23:16
DX: K59.00 Constipation, unspecified (principal); F17.210 Nicotine dependence, cigarettes, uncomplicated; Z91.048 Other nonmedicinal substance allergy status
CPT/HCPCS: 99282

== ENCOUNTER 2021-12-21 18:53 | Emergency (ER) | payer OTHER ==
--- OUTSIDE RECORDS SUMMARY | 2021-12-21 18:56 | XMS REPORT | Clinical Summary ---
:1960 Author Organization [facility] MD [facility] Address [address] [place] [address] Care Team Providers Name Role Phone Unavailable Primary Care Provider Unavailable Allergies Not on File Medications Not on file Active Problems Not on file Social History Tobacco Use Types Packs/Day Years Used Date Never Assessed Sex Assigned at Date Recorded Not on file Last Filed Vital Signs Not on file Plan of Treatment Not on file Results Not on fileafter 12/21/2020 Insurance Payer Benefit Plan / Subscriber ID Effective Phone Address T ype Group Dates [employer] [id number] 2015-Prese [address] [place] [id number]
--- OUTSIDE RECORDS SUMMARY | 2021-12-21 19:02 | XMS REPORT | Continuity of Care Document ---
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 11-04 mL by ity of solution 00:00: 04:59 [place] :[place] now for 1 Medical dose. Branch acetaminoph 2020- No Peripheral 1{tbl} TAKE 1 [facility] en-codeine 9-29 12-06 arterial TABLET BY [facility] (TYLENOL 00:00: 00:00 occlusive MOUTH #3) 300-30 00 :00 disease EVERY 4 mg per HOURS tablet NEEDED FOR PAIN atorvastati 2020- No Peripheral 20mg Take 1 [facility] n (LIPITOR) 8-30 12-07 arterial tablet by [facility] 20 mg 00:00: 00:00 occlusive mouth at tablet 00 :00 disease bedtime nightly. aspirin No Peripheral 81mg QD Chew and [facility] (ASPIRIN) 01-01 arterial swallow 1 Health 81 mg 00:00: 00:00 occlusive tablet by chewable 00 :00 disease mouth tablet daily. Miscellaneo 2020- No Peripheral Handicap [facility] 01-01 arterial Placard. Health Supply Misc 00:00: 00:00 occlusive 00 :00 disease hydroCHLORO No Peripheral TAKE 1 [facility] thiazide 01-01 arterial CAPSULE BY Health 12.5 mg 00:00: 00:00 occlusive MOUTH capsule 00 :00 disease TWICE A DAY. gabapentin Idiopathic 400mg Take 1 [facility] (NEURONTIN) 01-01 peripheral capsule by Health 400 mg 00:00: 00:00 neuropathy mouth 3 capsule 00 :00 times daily. clopidogreL Medication 75mg QD Take 1 [facility] (PLAVIX) 75 01-01 refill tablet by [facility] mg tablet 00:00: 00:00 mouth 00 :00 daily. acetaminoph 2020- No Peripheral 1{tbl} Take 1 [place] en-codeine 01-01 arterial tablet by [facility] (TYLENOL/CO 00:00: 00:00 occlusive mouth DEINE #3) 00 :00 disease every 4 300-30 mg hours as per tablet needed for Pain. cephALEXin Boil 500mg Take 1 [facility] (KEFLEX) 01-01 capsule by [facility] th 500 mg 00:00: 23:59 mouth 4 capsule 00 :00 times daily for 10 days. traMADoL 2020- No Peripheral 50mg TAKE 1 [facility] (ULTRAM) 50 -31 12- arterial TABLET BY Health mg tablet 00:00: 00:00 occlusive MOUTH 00 :00 disease EVERY 6 HOURS NEEDED FOR PAIN. traMADoL 2020- No Peripheral 50mg Take 1 [facility] (ULTRAM) 50 6-25 11- arterial tablet by Health mg tablet 00:00: 00:00 occlusive mouth 00 :00 disease every 6 hours as needed for Pain. traMADoL No Peripheral 50mg Take 1 [facility] (ULTRAM) 50 10-18 arterial tablet by Health mg tablet 00:00: 00:00 occlusive mouth 00 :00 disease every 6 hours as needed for Pain. atorvastati 2020- No Peripheral 20mg Take 1 [facility] n (LIPITOR) 10-16 arterial tablet by Health 20 mg 00:00: 00:00 occlusive mouth at tablet 00 :00 disease bedtime nightly. hydroCHLORO 2020-2020- No Peripheral TAKE 1 [facility] thiazide 10-16 arterial CAPSULE BY Health 12.5 mg 00:00: 00:00 occlusive MOUTH capsule 00 :00 disease TWICE A DAY. gabapentin 2020- No Idiopathic 400mg Take 1 [facility] (NEURONTIN) 10-16 [...] A DAY Miscellaneo 2020- No Peripheral Handicap [facility] 08-22 arterial Placard. Health Supply Misc 00:00: 00:00 occlusive 00 :00 disease clopidogreL 2020- No Medication 75mg QD Take 1 [facility] (PLAVIX) 75 08-18 refill tablet by Health mg tablet 00:00: 00:00 mouth 00 :00 daily. clopidogreL 2020- No Medication 75mg QD Take 1 [facility] (PLAVIX) 75 08-18 refill tablet by Health mg tablet 00:00: 00:00 mouth 00 :00 daily. iohexol 2020- No [id number] 120mL 120 mL, Univers (OMNIPAQUE 08-16 Intravenou it y of 350 06:00: 06:00 s, ONCE, 1 [place] BULK-150 00 :00 dose, Wed Medica l mL) 08/16/20 at Branch injection 0100, 120 mL Routine gabapentin No Idiopathic 400mg Take 1 [facility] (NEURONTIN) 08-09 peripheral capsule by Health 400 mg 00:00: 00:00 neuropathy mouth 3 capsule 00 :00 times daily. clopidogreL 2020- No Medication 75mg QD Take 1 [facility] (PLAVIX) 75 08-09-16 refill tablet by Health mg tablet 00:00: 00:00 mouth 00 :00 daily. clopidogreL 2020- No Medication 75mg QD Take 1 [facility] (PLAVIX) 75 08-09 refill tablet by Health mg tablet 00:00: 00:00 mouth 00 :00 daily. gabapentin No Idiopathic 400mg Take 1 [facility] (NEURONTIN) 08-09 peripheral capsule by Health 400 mg 00:00: 00:00 neuropathy mouth 3 capsule 00 :00 times daily. ibuprofen Idiopathic 600mg TAKE 1 [facility] (MOTRIN) 08-07 peripheral TABLET BY Health 600 mg 00:00: 00:00 neuropathy MOUTH tablet 00 :00 EVERY 6 HOURS polyethylen Screen for Empty the Pharm[facility] e glycol 07-19 colon contents Healt h (MOVIPREP) 00:00: 00:00 cancer of 1 Pouch 100-7.5-2.6 00 :00 A and 1 91 gram Pouch B PwPk kit into the container that comes with MoviPrep. Add lukewarm water to the Fill Line on the container. Drink as directed by your doctor.. aspirin No Peripheral 81mg QD Elisabet and [facility] (ASPIRIN) 07-19 arterial swallow 1 [facility] 81 mg 00:00: 00:00 occlusive tablet by chewable 00 :00 disease mouth tablet daily. atorvastati 2020- No Peripheral 20mg Take 1 Pharm[facility] n (LIPITOR) 07-19 arterial tablet by Health 20 mg 00:00: 00:00 occlusive mouth at tablet 00 :00 disease bedtime nightly. hydroCHLORO 2020- No Peripheral 12.5mg Q.5D Take 1 [facility] thiazide 07-19 arterial capsule by Health 12.5 mg 00:00: 00:00 occlusive mouth 2 capsule 00 :00 disease times daily. gabapentin No Idiopathic 400mg Take 1 [facility] (NEURONTIN) 07-19 peripheral capsule by Health 400 mg 00:00: 00:00 neuropathy mouth 3 capsule 00 :00 times daily. clopidogreL 2020- No Medication 75mg QD Take 1 [facility] (PLAVIX) 75 07-19 refill tablet by Health mg tablet 00:00: 00:00 mouth 00 :00 daily. ibuprofen No Idiopathic 600mg Take 1 [facility] (MOTRIN) 07-19 peripheral tablet by Health 600 mg 00:00: 00:00 neuropathy mouth tablet 00 :00 every 6 hours. nicotine 2019-05- No Cigarette 1{patch Apply 1 [facility] (NICODERM 06-08 nicotine } Patch to H ealth CQ) 7 mg/24 00:00: 00:00 dependence skin as hr patch 00 :00 without directed complicatio every 24 n hours. gabapentin 2019-05 PAD 600mg Take 1 [facility] (NEURONTIN) 06-08 (peripheral tablet by Health 600 mg 00:00: 23:59 artery mouth 3 tablet 00 :00 disease) times daily for 60 days. gabapentin 2019-05 Peripheral 400mg Take 1 [facility] (NEURONTIN) 007-19 neuropathic capsule by Health 400 mg 00:00: 00:00 pain mouth 3 capsule 00 :00 times daily. Miscellaneo Yes Peripheral by [facility] 01-05 arterial Misc.(Non- Health Supply Misc 00:00: occlusive Drug; 00 disease Combo Route) route Handicap Placard. traMADoL Peripheral 50mg Take 1 [facility] (ULTRAM) 50 01-0516 arterial tablet by Health mg tablet 00:00: 00:00 occlusive mouth 00 :00 disease every 6 hours as needed for Pain. clopidogreL 2020- No Medication 75mg QD Take 1 [facility] (PLAVIX) 75 01-04 refill tablet by Health mg tablet 00:00: 00:00 mouth 00 :00 daily. ibuprofen Idiopathic 600mg TAKE 1 [facility] (MOTRIN) 01-02 peripheral TABLET BY Health 600 mg 00:00: 00:00 neuropathy MOUTH tablet 00 :00 EVERY 6 HOURS raNITIdine 2021- No Peripheral 150mg Q.5D Take 1 [facility] HCL 150 mg 12-26 arterial tablet by Health tablet 00:00: 00:00 occlusive mouth 2 00 :00 disease times daily. tamsulosin No Peripheral .4mg Take 1 [facility] (FLOMAX) 12-26 arterial capsule by [facility] 0.4 mg 00:00: 00:00 occlusive mouth at extended 00 :00 disease bedtime release nightly. capsule acetaminoph No Peripheral 650mg Take 2 [facility] en 12-26 arterial tablets by [facility] (TYLENOL) 00:00: 00:00 occlusive mouth 325 mg 00 :00 disease every 4 tablet hours. sennosides- 2020- No Peripheral 1{tbl} Take 1 [place] docusate 12-26 arterial tablet by ealth sodium 00:00: 00:00 occlusive mouth 2 (SENNA 00 :00 disease times PLUS) daily as 8.6-50 mg needed for tablet Constipati on. aspirin No Peripheral 81mg QD Chew and [facility] (ASPIRIN) 12-26 arterial swallow 1 Health 81 mg 00:00: 00:00 occlusive tablet by chewable 00 :00 disease mouth tablet daily. atorvastati 2020- No Peripheral 20mg Take 1 [place] n (LIPITOR) 12-26 arterial tablet by [facility] 20 mg 00:00: 00:00 occlusive mouth at tablet 00 :00 disease bedtime nightly. hydroCHLORO No Peripheral 12.5mg Q.5D Take 1 [place] thiazide 12-26 arterial capsule by Health 12.5 mg 00:00: 00:00 occlusive mouth 2 capsule 00 :00 disease times daily. pregabalin 2020- No Idiopathic TAKE 1 [facility] (LYRICA) 75 10-11 peripheral CAPSULE BY [facility] mg capsule 00:00: 00:00 neuropathy MOUTH 00 :00 TWICE A DAY ketoconazol 2020- No Medication QD Apply to Peterson thomas (NIZORAL) 07-12 refill affected H ealth 2 % topical 00:00: 00:00 area cream 00 :00 daily. gabapentin 2020- No Caries 400mg Take 1 H arris (NEURONTIN) 4-17 -17 capsule by H ealth 400 mg 00:00: 00:00 mouth 3 capsule 00 :00 times daily. No known No [facility] [place] [facility] Ordered Immunization Filled Immunization Date Status Commen ts Source Name Name Influenza, 2021-04-[address] [facility] Vaccine<FLUCELVAX>(Mul 00:00:00 ti-Dose) Influenza, Injectable, 2019-07-13 Completed [facility] Quadrivalent 00:00:00 Influenza, Vaccine 2018-06-[address] [facility] <FLUCELVAX>(Preservati 00:00:00 ve-Free) PPV 23 (Pneumococcal 2018-06-16 Completed [facility] Polysaccharide 23 00:00:00 Valent) PPD 2013-08-[address] [facility] 00:00:00 Tdap Tetanus, 2013-08-03 Completed [facility] diphtheria, acellular 00:00:00 pertussis Vaccine PPD 2007-06-[address] [facility] 00:00:00 Tdap Tetanus, 1999-08-04 Completed [facility] diphtheria, acellular 00:00:00 pertussis Vaccine Vital Signs Vital Name Observation Time Observation Value Comments Source Systolic blood 2021-12-06 02:53:00 121 mm[Hg[facility] Diastolic blood 2021-12-06 02:53:00 70 [facility] 2021-12-06 02:53:00 107 /min [facility] Body temperature 2021-12-06 02:53:00 36.22 Tami [facility] Respiratory rate 2021-12-06 02:53:00 16 /min [facility] Body height 2021-12-06 02:53:00 182.9 cm [facility] Body weight 2021-12-06 02:53:00 68.04 kg [facility] BMI 2021-12-06 02:53:00 20.34 kg/m2 [facility] Oxygen saturation in 2021-12-06 02:53:00 98 /min [facility] Arterial blood by [facility] Pulse oximetry Branch Systolic blood 2021-11-28 03:15:00 129 mm[Hg] Univer sity of pressure [facility] Diastolic blood 2021-11-28 03:15:00 94 mm[Hg] Unive rsity of pressure [facility] Heart rate 2021-11-28 03:15:00 63 /min [facility]i ty [facility] Respiratory rate 2021-11-28 03:15:00 18 /min Univ ersity of [facility] Oxygen saturation in 2021-11-28 03:15:00 97 /min University of Arterial blood by [facility] Pulse oximetry Branch Body temperature 2021-11-27 21:59:00 36.22 Tami Univ ersity of [facility] Body height 2021-11-27 21:57:00 182.9 cm [facility]i [facility] Body weight 2021-11-27 21:57:00 68.04 kg [facility] BMI 2021-11-27 21:57:00 20.34 kg/m2 [facility] Systolic blood 2021-07-29 03:35:00 145 mm[Hg] Univer sity of pressure [facility] Diastolic blood 2021-07-29 03:35:00 107 mm[Hg] Unive rsity of pressure [facility] Heart rate 2021-07-29 03:35:00 85 /min [facility]i [facility] Oxygen saturation in 2021-07-29 03:35:00 99 /min University of Arterial blood by [facility] Pulse oximetry Branch Body temperature 2021-07-29 00:56:00 36.83 Tami Univ ersity of [facility] Respiratory rate 2021-07-29 00:56:00 20 /min Univ ersity [facility] Body weight 2021-07-29 00:56:00 77.111 kg [facility]i [facility] BMI 2021-07-29 00:56:00 23.06 kg/m2 [facility] Systolic blood 2021-07-13 04:00:00 135 mm[Hg] Univer sity of pressure [facility] Diastolic blood 2021-07-13 04:00:00 86 mm[Hg] Unive rsity of pressure [facility] Heart rate 2021-07-13 04:00:00 90 /min [facility]i ty [facility] Respiratory rate 2021-07-13 04:00:00 18 /min Univ ersity of [facility] Oxygen saturation in 2021-07-13 04:00:00 100 /min [facility] Arterial blood by [place] [facility] Pulse oximetry Branch Body temperature 2021-07-13 01:14:00 36.5 Tami Univ ersity of [facility] Body height 2021-07-13 01:14:00 182.9 cm Universi ty [facility] Body weight 2021-07-13 01:14:00 77.111 kg [facility]i [facility] BMI 2021-07-13 01:14:00 23.06 kg/m2 [facility]i [facility] Respiratory rate 2021-06-01 01:22:00 20 /min Univ ersity of [facility] Body height 2021-06-01 01:22:00 182.9 cm [facility]i [facility] Body weight 2021-06-01 01:22:00 77.111 kg [facility]i [facility] BMI 2021-06-01 01:22:00 23.06 kg/m2 [facility]i ty [facility] Oxygen saturation in 2021-06-01 01:22:00 99 /min University of Arterial blood by [facility] Pulse oximetry Branch Systolic blood 2021-06-01 01:22:00 132 mm[Hg] Univer sity of pressure [facility] Diastolic blood 2021-06-01 01:22:00 91 mm[Hg] Unive rsity of pressure [facility] Heart rate 2021-06-01 01:22:00 104 /min [facility]i ty [facility] Body temperature 2021-06-01 01:22:00 36.44 Tami Univ ersity [facility] Systolic blood 2021-03-07 21:30:00 133 mm[Hg] Univer sity of pressure [facility] Diastolic blood 2021-03-07 21:30:00 80 mm[Hg] Unive rsity of pressure [facility] Heart rate 2021-03-07 21:30:00 66 /min Universi ty [facility] Respiratory rate 2021-03-07 21:30:00 17 /min Univ ersity of [facility] Oxygen saturation in 2021-03-07 21:30:00 99 /min University of Arterial blood by [place] [facility] Pulse oximetry Branch Body temperature 2021-03-07 19:28:00 36.67 Tami [facility] ersity of [facility] Body height 2021-03-07 19:28:00 182.9 cm Universi ty [facility] [place] [facility] [place] Body weight 2021-03-07 19:28:00 77.111 kg [facility]i [facility] [place] BMI 2021-03-07 19:28:00 23.06 kg/m2 Universi ty of [facility] Systolic blood 2020-08-16 09:00:00 121 mm[Hg] Univer sity of pressure [facility] Diastolic blood 2020-08-16 09:00:00 81 mm[Hg] Unive rsity of pressure [facility] Heart rate 2020-08-16 09:00:00 71 /min Universi ty of [facility] Respiratory rate 2020-08-16 09:00:00 20 /min [facility] Oxygen saturation in 2020-08-16 09:00:00 100 /min [facility] Arterial blood by [facility] Pulse oximetry Branch Body temperature 2020-08-16 01:39:00 36.61 Tami [facility] Body height 2020-08-16 01:39:00 182.9 cm [facility]i [facility] [place] Body weight 2020-08-16 01:39:00 74.39 kg Universi ty of [facility] BMI 2020-08-16 01:39:00 22.24 kg/m2 Universi ty [facility] Oxygen saturation in 2021-05-10 09:32:00 94 /min [facility] Arterial blood by Pulse oximetry Systolic blood 2021-05-10 08:00:00 96 mm[Hg] [facility] pressure Diastolic blood 2021-05-10 08:00:00 66 mm[Hg] [facility] pressure Heart rate 2021-05-10 08:00:00 75 /min [facility] Body temperature 2021-05-10 08:00:00 36.94 Tami [facility] Respiratory rate 2021-05-10 08:00:00 24 /min [facility] Body height 2021-05-02 01:00:00 182.9 cm [facility] Body weight 2021-05-02 01:00:00 70.308 [facility] 2021-05-02 01:00:00 21.02 kg/m2 [facility] Procedures Procedure Date / Time Performing Clinician Source Performed CONSENT/REFUSAL FOR 2021-12-06 02:45:12 Doctor Pasquale [facility] DIAGNOSIS AND TREATMENT [facility] COMP. METABOLIC PANEL 2021-11-28 00:25:00 More Aldana [facility] ([id number]) Medical Branch SEDIMENTATION RATE 2021-11-28 00:25:00 More Aldana [facility] [place] CBC WITH DIFF 2021-11-28 00:25:00 More Aldana [facility] XR FOOT <3 VW RIGHT 2021-11-27 23:59:00 More Aldana [facility] CONSENT/REFUSAL FOR 2021-11-27 21:51:32 Doctor Pasquale [facility] DIAGNOSIS AND TREATMENT [place] [facility] [place] CT ABDOMEN PELVIS W 2021-07-29 02:55:46 [facility] CONTRAST Medical Branch LIPASE 2021-07-29 02:35:00 Singer [facility] Medical [facility] COMP. METABOLIC PANEL 2021-07-29 02:35:00 [facility] ([id number]) [facility] CBC WITH DIFF 2021-07-29 [facility] FOR 2021-07-29 00:21:47 Doctor Pasquale [facility] DIAGNOSIS AND TREATMENT [facility] [place] XR KUB 2021-07-13 02:14:08 Iker Wells [facility] NOTICE OF PRIVACY 2021-07-13 01:04:13 Doctor Pasquale [facility] PRACTICES [facility] CONSENT/REFUSAL FOR 2021-07-13 01:03:10 Doctor Pasquale [facility] DIAGNOSIS AND TREATMENT [facility] CBC/DIFF 2021-06-01 11:23:00 Jessica Pulido CBC 2021-06-01 11:23:00 Jessica Pulido h BASIC METABOLIC PANEL 2021-05-10 04:50:[address] [facility] CBC/DIFF 2021-05-10 04:50:00 Roscoe Iker [facility] CBC 2021-05-10 04:50:00 Roscoe [facility] 1 VIEW 2021-05-09 19:10:[address] [facility] BASIC METABOLIC PANEL 2021-05-09 08:53:00 Johnson Morelos [facility] BASIC METABOLIC PANEL 2021-05-09 05:04:[address] [facility] CBC/DIFF 2021-05-09 05:04:00 Iker Jeffries [facility] CBC 2021-05-09 05:04:00 [facility] BASIC METABOLIC PANEL 2021-05-08 05:28:[address] [facility] CBC/DIFF 2021-05-08 05:28:00 [facility] CBC 2021-05-08 05:28:00 [facility] BASIC METABOLIC PANEL 2021-05-07 05:20:[address] [facility] CBC/DIFF 2021-05-07 05:20:00 [facility] CBC 2021-05-07 05:20:00 [facility] VANCOMYCIN, TROUGH 2021-05-06 12:16:00 Jessica Pulido BASIC METABOLIC PANEL 2021-05-06 03:59:[address] [facility] CBC/DIFF 2021-05-06 03:59:00 Iker Jeffries [facility] CBC 2021-05-06 03:59:00 [facility] X[facility] CHEST 2 VIEWS 2021-05-05 22:17:00 Iker Jeffries alth COMMODE AT BEDSIDE 2021-05-05 11:07:12 Yocasta Mills alth COMMODE AT BEDSIDE 2021-05-05 09:04:21 Yocasta Mills alth VANCOMYCIN, TROUGH 2021-05-05 04:21:00 Johnson Morelos [facility] ealt BASIC METABOLIC PANEL 2021-05-05 04:21:[address] [facility] CBC/DIFF 2021-05-05 04:21:00 Iker Jeffries Healt h CBC 2021-05-05 04:21:00 [facility] 2021-05-04 22:42:11 Yocasta Mills [facility] GLUCOSE POC 2021-05-04 16:35:00 Yocasta Millst h GLUCOSE POC 2021-05-04 12:56:00 Yocasta Millst h GLUCOSE POC 2021-05-04 07:46:00 [facility] BASIC METABOLIC PANEL 2021-05-04 05:28:00 Iker Jeffries Health MAGNESIUM 2021-05-04 05:28:00 Iker Jeffries Healt h PHOSPHORUS 2021-05-04 05:28:00 [facility] PTT 2021-05-04 05:28:00 [facility] PT/INR 2021-05-04 05:28:00 [facility] CBC/DIFF 2021-05-04 05:28:00 [facility] CBC 2021-05-04 05:28:00 [facility] GLUCOSE POC 2021-05-04 01:59:00 Yocasta Mills [facility] h GLUCOSE POC 2021-05-03 21:32:00 Yocasta Mills h TISSUE EXAM 2021-05-03 12:17:00 Yocasta Mills ABG/LYTES/HGB/IONIZED CA 2021-05-03 10:34:00 Key Navarro [facility] PANEL ARTERIAL BLOOD GAS WITH 2021-05-03 10:34:00 Key Navarro [facility] HEMOGLOBIN CALCIUM, IONIZED 2021-05-03 10:34:00 Key Navarro [facility] SODIUM/POTASSIUM 2021-05-03 10:34:00 Key Navarro [facility] GLUCOSE 2021-05-03 10:34:00 Key Navarro CHLORIDE 2021-05-03 10:34:00 Key Navarro [employer] STAIN AND CULTURE 2021-05-03 10:27:[address] [facility] ANAEROBE CULTURE 2021-05-03 10:27:00 Yocasta Mills [facility] FUNGUS STAIN AND CULTURE 2021-05-03 10:27:00 Yocasta Mills [facility] WOUND/ABSCESS CULTURE AND 2021-05-03 10:27:00 Yocasta Mills [facility] GRAM STAIN [facility] ANESTHESIA BLOCK 2021-05-03 10:12:52 Key Navarro [facility] ARTERIAL CATHETER AIRWAY 2021-05-03 09:25:00 Key Navarro [facility] BYPASS GRAFT 2021-05-03 09:10:00 Yocasta Mills FEMORAL-ILIAC TYPE AND SCREEN 2021-05-03 04:30:00 [facility] T&S - COLLECTION 2021-05-03 04:30:00 Iker Jeffries [facility] CBC/DIFF 2021-05-03 04:30:00 Iker Jeffries [facility] CBC 2021-05-03 04:30:00 Iker Jeffries [facility] INFUSION PUMP 2021-05-02 15:11:54 Surinder Zepeda [facility] INVASIVE CARD L HRT 2021-05-02 14:39[facility]VEN[facility]ICLE ANGIO Chayakrit (PROSOLV) INFUSION PUMP 2021-05-02 13:58:40 [facility] INF[facility] PUMP 2021-05-02 12:49:47 Yocasta Mills RBC UNITS 2021-05-02 08:58:00 Iker Jeffries [facility] ECHG NON-INVASIVE PROC 2021-05-02 07:31:00 Iker Jeffries [facility] ECHOCARDIOGRAM 2-D W/O CONTRAST (PROSOLVE) CBC/DIFF 2021-05-02 04:24:00 Iker Jeffries [facility] BASIC METABOLIC PANEL 2021-05-02 04:24:[address] [facility] CBC 2021-05-02 04:24:00 Iker Jeffries [facility] SARS-COV-2, FLU A/B, RSV 2021-05-01 22:41:00 Aisha Noe [facility] CORONAVIRUS, COVID-19, 2021-05-01 22:41:00 Kusum, Aisha [facility] ZACKERY XRAY CHEST 1 VIEW 2021-05-01 21:11:34 KusumAisha alth BMP POC 2021-05-01 19:21:00 Unknown, Provider Peterson Glover lth CREATININE POC 2021-05-01 19:21:00 Unknown, Provider Peterson [facility]over lth CBC/DIFF 2021-05-01 19:15:00 Aisha Noe Heal th CBC 2021-05-01 19:15:00 Kusum Aishahi [facility] 12 LEAD EKG 2021-05-01 18:57:44 Aisha Noe [facility]al [facility] CBC/DIFF 2021-04-07 00:12:00 Marquise Oneilt h CBC 2021-04-07 00:12:00 Marquise Oneil h BASIC METABOLIC PANEL 2021-04-07 00:11:00 Marquise Oneil Health MAGNESIUM 2021-04-07 00:11:00 Marquise Oneil h PHOSPHORUS 2021-04-07 00:11:00 [facility] IR U/S GUIDANCE FOR 2021-04-06 16:27:21 Abelino Lewis ealt VASCULAR ACCESS IR ANGIOGRAM EXT. 2021-04-06 16:27:21 Abelino Lewis [facility] UNILATERAL PLACE CATH SELECT 2021-04-06 16:27:21 Abelino Lewis lt ART,ABD/PEL MODERATE SEDATION, 2021-04-06 16:27:21 Abelino Lewis INITIAL MODERATE SEDATION, ADDL 2021-04-06 16:27:21 Abelino [facility] GLUCOSE POC 2021-04-06 13:46:00 Yocasta Mills TYPE AND SCREEN 2021-04-06 10:05:00 Marquise Oneil T&S - COLLECTION 2021-04-06 10:05:00 Marquise Oneil CBC (WITHOUT 2021-04-06 10:05:00 Shannon Oquendo [facility] DIFFERENTIAL) PT/INR 2021-04-06 10:05:[address] [facility] GLUCOSE POC 2021-04-06 07:19:00 Yocasta Mills [facility] h SEQUENTIAL COMPRESSION 2021-04-06 06:38:40 [facility] PUMP INFUSION PUMP 2021-04-06 06:38:40 Gene Olymika [facility] SARS-COV-2, FLU A/B, RSV 2021-04-06 05:32:00 Mason Henriquez [facility] CORONAVIRUS, COVID-19, 2021-04-06 05:32:00 MartinezMason Located within [facility] ZACKERY CTA ABDOMEN-PELVIS W 2021-04-06 02:33:[address] [facility] CONTRAST - AORTA + RUNOFF Gerardine BMP POC 2021-04-05 20:10:00 Estefania Steiner [facility] CREATININE POC 2021-04-05 20:10:00 Estefania Steiner [facility] CT ABDOMEN PELVIS W 2021-03-07 21:50:16 Jenelle Anderson [facility] CONTRAST Medical Branch URINALYSIS 2021-03-07 21:02:00 Jenelle Anderson [facility] XR CHEST 1 VW 2021-03-07 19:48:21 Jenelle Anderson [facility] LACTIC ACID WHOLE BLOOD 2021-03-07 19:43:00 Jenelle Anderson [facility] Medical [place] COVID-19 (ID NOW RAPID 2021-03-07 19:43:00 Jenelle Anderson [facility] TESTING) Medical Branch LIPASE 2021-03-07 19:42:00 Jenelle Anderson [facility] TROPONIN I 2021-03-07 19:42:00 Jenelle Anderson [facility] COMP. METABOLIC PANEL 2021-03-07 19:42:00 Jenelle Anderson [facility] ([id number]) Medical Branch CBC WITH DIFF 2021-03-07 19:42:00 Anderson, Jenelle [facility] PROTHROMBIN TIME / INR 2021-03-07 19:42:00 Jenelle Anderson [facility] ACTIVATED PARTIAL 2021-03-07 19:42:[address] [facility]-BNP 2021-03-07 19:42:00 Jenelle Anderson [facility] CORONAVIRUS, COVID-19, 2021-02-14 15:10:00 [facility] ZACKERY CBC/DIFF 2021-02-12 07:12:00 Car [facility] COMPREHENSIVE METABOLIC 2021-02-12 07:12:00 [facility] PANEL CBC 2021-02-12 07:12:00 Car Thomas h NONINVASV EXTREM 2021-02-02 10:20:00 Martín Poon th EXAM,MULT,BILAT DUPLEX DOPPLER LOWER 2021-02-02 09:37:00 Martín Poon [facility] EXTREMITY ART BILATERAL CT ABDOMEN PELVIS W 2020-08-16 05:47:58 Charmaine Oquendo [facility] COMP. METABOLIC PANEL 2020-08-16 03:42:00 Charmaine Oquendo [facility] ([id number]) [facility] CBC WITH DIFF 2020-08-16 03:42:00 Charmaine Oquendo [facility] URINALYSIS 2020-08-16 03:42:00 Charmaine Oquendo [facility] BMP POC 2020-08-08 17:28:00 [facility]ude [facility] CREATININE POC 2020-08-08 17:28:00 [facility] CBC/DIFF 2020-08-08 17:20:00 Bhavik [facility] R CBC 2020-08-08 17:20:00 Bhavik [facility] R CBC/DIFF 2020-07-26 11:57:00 Inaspeng, Nse-Obung [facility] COMPREHENSIVE METABOLIC 2020-07-26 11:57:00 Inyang, Nse-Obung [facility] PANEL HEMOGLOBIN A1C 2020-07-26 11:57[facility]00 [facility] LIP[facility] PROFILE 2020-07-26 11:57:00 [facility] CBC 2020-07-26 11:57:00 [facility] Plan of Care Planned Activity Planned Date Details Comments Source Future Scheduled 2024-02-23 Imm Pneumococcal [facility] Test 00:00:00 0-64 (2 of 2 - PPSV23) [code = Imm Pneumococcal 0-64 (2 of 2 - PPSV23)] Future Scheduled 2021-08-09 COVID-19 Vaccine (1) [facility]poned from [facility] 00:00:00 [code = COVID-19 02/23/1965 Vaccine (1)] (Patient Refused) Future Scheduled 2019-01-21 [facility] 00:00:00 malignant neoplasm of colon (procedure) [code = 907911241] Future Scheduled 2019-01-21 [facility] 00:00:00 malignant neoplasm of colon (procedure) [code = 769321705] Future Scheduled 2009 [facility] 00:00:00 malignant neoplasm of colon (procedure) [code = 505146895] Future Scheduled 2009 [facility] 00:00:00 malignant neoplasm of colon (procedure) [code = 841614778] Future Scheduled 2009 [facility] 00:00:00 malignant neoplasm of colon (procedure) [code = 842031901] Encounters Start End Encounter Admission Attending Care Care Encounter Source Date/Time Date/Time Type Type Clinicians Facility Department ID 2021-06-28 Inpatient JUDI [facility] [id number] [place] 00:00:00 [facility] 2021-06-28 Inpatient JUDI [facility] [id number] Peterson 00:00:00 [facility] 2021-06-14 Inpatient NELSON [facility] [id number] [place] 00:00:00 [facility] 2021-06-13 Inpatient NELSON [facility] [id number] [place] 00:00:00 [facility] 2021-06-12 Inpatient 1 GENE [facility] [id number] H arris 11:24:00 [facility] 2021-06-12 Inpatient GENE, [facility] [id number] H arris 00:00:00 [facility] 2021-06-07 Inpatient GENE, [facility] [id number] H arris 00:00:00 [facility] 2021-05-03 Inpatient [facility] [id number] H arris 00:00:00 [facility] 2021-05-01 Inpatient 1 GENE, [facility] [id number] H arris 19:15:00 [facility] 2021-04-26 Inpatient GENE, [facility] [id number] H arris 00:00:00 [facility] 2021-04-26 Inpatient [facility] [id number] H arris 00:00:00 [facility] 2021-04-06 Inpatient GENE, [facility] [id number] H arris 13:41:52 [facility] 2021-04-05 Inpatient 1 GENE, [facility] [id number] H arris 09:44:00 [facility] 2018-07-30 Inpatient [facility] [id number] H arris 00:00:00 [facility] 2018-01-16 Inpatient [facility] [id number] H arris 12:01:29 [facility] 2017-12-29 Inpatient [facility] [id number] H arris 17:58:32 [facility] 2017-12-29 Inpatient [facility] [id number] H arris 08:50:44 [facility] 2017-12-29 Inpatient [facility] NELIA [id number] H arris 05:46:00 [facility] 2017-12-29 Inpatient [facility] [id number] H arris 00:00:00 [facility] 2017-12-22 Inpatient [facility] [id number] H arris 00:00:00 [facility] 2017-07-29 Inpatient [facility] NELIA [id number] H arris 00:00:00 [facility] 2016-09-17 Inpatient [facility] [id number] Conner [facility] 22:00:16 [facility] 2016-09-16 Inpatient [facility] [id number] Conner rris 08:26:49 [facility] 2016-09-16 Inpatient [facility] NELIA [id number] Con[facility]ris 05:53:00 [facility] 2022-01-17 2022-01-17 Outpatient DAYANARA, [facility] [id number] [place] [address] 00:00:00 00:00:00 [facility] 2021-12-05 2021-12-05 Emergency X EDUARDO [facility] ERT [id number] Univers 22:00:00 22:30:00 CHARMAINE raúl [facility] 2021-12-05 2021-12-05 Emergency Pablo Jordan [facility] [id number] Univers 22:00:00 22:30:00 Charmaine [place] [id number] [id number] [facility] [id number] [address] 2021-11-27 2021-11-27 Emergency X EDUARDO [facility] ERT [id number] Univers 17:01:00 22:21:00 CHARMAINE [facility] 2021-11-27 2021-11-27 Emergency More Aldana [facility] [id number] [facility] 17:01:00 22:21:00 Charmaine [place]quendo [place] [id number] [facility] [id number] [facility] [id number] [address] 2021-11-15 2021-11-15 Outpatient [facility] [id number] [place] 00:00:00 00:00:00 [facility] 2021-11-08 2021-11-08 [facility] [id number] [place] 00:00:00 00:00:00 [facility] 2021-11-08 2021-11-08 [facility] [id number] [place] 00:00:00 00:00:00 [facility] 2021-11-01 2021-11-01 Outpatient [facility] [id number] [place] 00:00:00 00:00:00 [facility] 2021-10-17 2021-10-17 Outpatient [facility] [id number] [place] 00:00:00 00:00:00 [facility] 2021-10-17 2021-10-17 [facility] [id number] [place] 00:00:00 00:00:00 [facility] 2021-10-17 2021-10-17 [facility] [id number] [place] 00:00:00 00:00:00 [facility] 2021-10-17 2021-10-17 Outpatient GENE, [facility] [id number] [place] 00:00:00 00:00:00 [facility] 2021-09-28 2021-09-28 Outpatient GENE, [facility] [id number] [place] 08:54:53 10:04:49 [facility] 2021-09-14 2021-09-14 Outpatient [facility] [id number] [place] 00:00:00 00:00:00 [facility] 2021-09-07 2021-09-07 Outpatient [facility] [id number] [place] 00:00:00 00:00:00 [facility] 2021-09-04 2021-09-04 Outpatient TRACEE, [facility] [id number] [place] 00:00:00 00:00:00 [facility] 2021-08-31 2021-08-31 [facility] [id number] [place] 08:33:07 23:59:00 [facility] 2021-08-31 2021-08-31 [facility] [id number] [place] 08:33:03 23:59:00 [facility] 2021-08-31 2021-08-31 [facility] [id number] [place] 11:33:48 13:34:10 [facility] 2021-08-31 2021-08-31 Outpatient [facility] [id number] [place] 10:53:06 11:12:28 [facility] 2021-08-31 2021-08-31 Outpatient CHEVY, [facility] [id number] [place] 00:00:00 00:00:00 [facility] 2021-08-13 2021-08-13 Outpatient LINDA, [facility] [id number] [place] 10:11:20 10:52:43 NSE-OBUNG [facility]al 2021-08-10 2021-08-10 Outpatient RAHEEM, [facility] [id number] [place] 10:28:13 11:47:30 FAMILIA [facility] 2021-08-10 2021-08-10 [facility] [id number] [place] 10:28:09 10:54:05 LEON Healt [facility] 2021-08-03 2021-08-03 [facility] [id number] [place] 11:38:34 12:51:05 [facility] 2021-08-02 2021-08-02 Outpatient [facility] [id number] [place] 00:00:00 00:00:00 [facility] 2021-07-28 2021-07-28 Emergency X [facility] ERT [id number] [facility] 19:49:00 23:06:00 CAL grant [facility] 2021-07-28 2021-07-28 Emergency [facility] [id number] Univers 19:49:00 23:06:00 Cal BERGER [id number] i ty of [place] [id number] [facility] [id number] [address] 2021-07-20 2021-07-20 Outpatient GENE, [facility] [id number] [place] 00:00:00 00:00:00 [facility] 2021-07-13 2021-07-13 Outpatient PARVIN, [facility] [id number] [place] 00:00:00 00:00:00 [facility] 2021-07-13 2021-07-13 Outpatient PARVIN, [facility] [id number] [place] 00:00:00 00:00:00 [facility] 2021-07-12 2021-07-12 [facility] [id number] [facility] 19:16:00 22:26:00 IKER grant [facility] 2021-07-12 2021-07-12 Emergency [facility] [id number] Univers 19:16:00 22:26:00 Iker BERGER [id number] i ty of [place] [id number] [facility] [id number] [address] 2021-07-09 2021-07-09 Outpatient PARVIN, [facility] [id number] [place] 00:00:00 00:00:00 [facility] 2021-06-12 2021-07-07 [facility] [id number] [place] 11:24:00 11:45:00 [facility] 2021-07-05 2021-07-05 [facility] [id number] [place] 00:00:00 [facility]:00[facility] 2021-06-29 2021-06-29 Outpatient VARGAS, [facility] [id number] [place] 00:00:00 00:00:00 [facility] 2021-06-28 2021-06-28 Inpatient [facility] [id number] [place] 02:49:42 02:49:44 [facility] 2021-06-27 2021-06-27 Inpatient [facility] [id number] [place] 09:41:30 10:24:29 [facility] 2021-06-27 2021-06-27 Inpatient BERGER HOSPITALSTER, [facility] [id number] [place] 05:58:51 07:19:17 [facility] 2021-06-27 2021-06-27 Outpatient VARGAS, [facility] [id number] [place] 00:00:00 00:00:00 [facility] 2021-06-26 2021-06-26 Inpatient [facility] [id number] [place] 18:33:37 18:33:39 [facility] 2021-06-25 2021-06-25 Inpatient [facility] [id number] [place] 14:38:50 14:38:55 [facility] 2021-06-20 2021-06-20 Outpatient CARLEE, [facility] [id number] [place] 00:00:00 00:00:00 [facility] 2021-06-17 2021-06-17 Inpatient [facility] [id number] [place] 00:10:54 01:48:03 [facility] 2021-06-15 2021-06-15 Inpatient [facility] [id number] [place] 15:49:00 15:49:03 [facility] 2021-06-15 2021-06-15 Inpatient VERA, [facility] [id number] [place] 06:17:33 06:48:26 [facility] 2021-06-13 2021-06-13 Inpatient [facility] [id number] [place] 23:26:16 23:26:18 [facility] 2021-06-12 2021-06-12 Emergency DEON, [facility] [id number] [place] 11:29:01 11:39:24 [facility] 2021-06-12 2021-06-12 Emergency GENE, [facility] [id number] [place] 11:34:30 11:34:30 [facility] 2021-06-12 2021-06-12 Emergency GENE, [facility] [id number] [place] 11:17:09 11:17:09 [facility] 2021-06-12 2021-06-12 Emergency [facility] [id number] [place] 10:49:46 10:49:46 [facility] 2021-06-11 2021-06-11 Outpatient [facility] [id number] [place] 00:00:00 00:00:00 [facility] 2021-06-08 2021-06-08 Outpatient GENE, [facility] [id number] [place] 00:00:00 00:00:00 [facility] 2021-06-08 2021-06-08 Outpatient KING, [facility] [id number] [place] 00:00:00 00:00:00 [facility] 2021-06-01 2021-06-01 Outpatient GENE, [facility] [id number] [place] 11:21:24 12:23:12 [facility] 2021-06-01 2021-06-01 [facility] [id number] [place] 09:41:37 09:41:37 Visit [facility] 2021-06-01 2021-06-01 Orders Gene, [facility] [id number] [place] 00:00:00 00:00:00 Only [facility] 2021-05-31 2021-05-31 Emergency [facility] [id number] Univers 19:27:00 22:15:00 [facility] 2021-05-31 2021-05-31 Emergency [facility] [id number] Univers 19:27:00 22:15:00 [facility] [id number] [facility] [id number] [facility] [id number] [address] 2021-05-25 2021-05-25 [facility] [id number] [place] 00:00:00 00:00:00 [facility] 2021-05-14 2021-05-14 Outpatient PARVIN, [facility] [id number] [place] 00:00:00 00:00:00 [facility] 2021-05-01 2021-05-10 [facility] Yocasta Mills [facility] [id number] [place] 19:15:00 11:29:00 Encounter Surinder Zepeda [facility] Rhona Rodriguez 2021-05-09 2021-05-09 Inpatient [facility] [id number] [place] 18:35:18 19:10:19 [facility] 2021-05-09 2021-05-09 Outpatient PARVIN, [facility] [id number] [place] 00:00:00 00:00:00 NICCI [facility] 2021-05-05 2021-05-05 Inpatient GENE, [facility] [id number] [place] 21:57:10 22:18:10 [facility] 2021-05-03 2021-05-03 Anesthesia Key Navarro [facility] [id number] [place] 09:10:00 14:14:00 Event EliasDayanara [facility] 2021-05-03 2021-05-03 Surgery Gene, [facility] [id number] [place] 07:30:00 13:00:00 [facility] 2021-05-03 2021-05-03 Inpatient [facility] [id number] [place] 07:45:32 07:45:39 [facility] 2021-05-02 2021-05-02 Inpatient DEEJAY, [facility] [id number] [place] 14:06:16 15:53:53 [facility] 2021-05-02 2021-05-02 Inpatient GENE, [facility] [id number] [place] 10:59:59 11:00:51 [facility] 2021-05-01 2021-05-01 Emergency [facility] [id number] [place] 20:53:28 21:11:39 [facility] 2021-04-25 2021-04-26 Emergency [facility] [id number] [place] 00:00:00 02:25:13 [facility] 2021-04-26 2021-04-26 [facility] [id number] [place] 00:00:00 00:00:00 Only [facility] 2021-04-25 2021-04-25 [facility] [id number] [place] 13:50:08 16:10:21 Visit [facility] 2021-04-05 2021-04-10 [facility] [id number] [place] 09:44:00 16:11:00 Encounter YOCASTA [facility] 2021-04-06 2021-04-06 Emergency [facility] [id number] [place] 01:55:56 01:55:56 [facility] 2021-04-05 2021-04-05 Emergency BODULIA, [facility] [id number] [place] 20:56:16 20:56:16 [facility] 2021-04-04 2021-04-04 Outpatient [facility] [id number] [place] 00:00:00 00:00:00 [facility] 2021-03-07 2021-03-07 [facility] [id number] [facility] 14:22:00 20:11:00 JENELLE grant [facility] 2021-03-07 2021-03-07 Emergency [facility] [id number] Univers 14:22:00 20:11:00 Jenelle [place] [id number] i [facility] [id number] [facility] [id number] [address] 2021-02-23 2021-02-23 Outpatient [facility] [id number] [place] 00:00:00 00:00:00 [facility] 2021 2021 Outpatient GRICELDA TOMLINSON [facility] [id number] [place] 00:00:00 00:00:00 [facility] 2021-02-20 2021-02-20 Outpatient [facility] [id number] [place] 00:00:00 00:00:00 [facility] 2021-02-14 2021-02-14 Nurse Only Yumiko [facility] [id number] [place] 15:09:43 15:11:14 Shreya weiner [facility] 2021-02-14 2021-02-14 Outpatient 3 [facility] [id number] [place] 15:09:43 15:11:14 [facility] 2021-02-14 2021-02-14 Office Gene [facility] [id number] [place] 13:26:59 13:46:59 Visit [facility] 2021-02-14 2021-02-14 Outpatient RAHEEM [facility] [id number] [place] 00:00:00 00:00:00 [facility] 2021-02-12 2021-02-12 Outpatient [facility] [id number] [place] 07:11:52 07:12:10 Health 2021-02-12 2021-02-12 Outpatient CAR THOMAS [facility] [id number] [place] 00:00:00 00:00:00 [facility] 2021-02-08 2021-02-08 Orders Cleve, [facility] [id number] [place] 00:00:00 00:00:00 Only Ndidi C [facility] 2021-02-07 2021-02-07 [facility] [id number] [place] 00:00:00 00:00:00 [facility] 2021-02-02 2021-02-02 [facility] [id number] [place] 08:30:00 23:59:00 Encounter Ramyar Heal 2021-02-02 2021-02-02 [facility] [id number] [place] 12:32:19 13:38:19 Visit [facility] 2021-02-02 2021-02-02 [facility] [id number] [place] 07:45:00 08:29:00 Encounter Ramyar Heal 2021-01-31 2021-01-31 Telephonic Bright Mcfarlane [facility] [id number] [place] 06:26:20 15:14:55 Encounter Olesya Epps [facility] 2021-01-31 2021-01-31 [facility] [id number] [place] 00:00:00 00:00:00 Review Olesya Matthew [facility] 2021-01-30 2021-01-30 [facility] [id number] [place] 00:00:00 00:00:00 Nse-Obung Heal 2021-01-19 2021-01-19 Outpatient [facility] [id number] [place] 00:00:00 00:00:00 [facility] 2021-01-19 2021-01-19 Orders Cleve, [facility] [id number] [place] 00:00:00 00:00:00 Only Ndidi C [facility] 2021-01-16 2021-01-16 [facility] [id number] [place] 00:00:00 00:00:00 Only Ndidi [facility] 2021-01-15 2021-01-15 Orders [facility], [facility] [id number] [place] 00:00:00 00:00:00 Only Nse-Obung Heal 2021-01-01 2021-01-01 Office [facility], [facility] [id number] [place] 10:47:29 11:45:36 Visit Nse-Obung Heal 2020-12-17 2020-12-17 Refill [facility], [facility] [id number] [place] 00:00:00 00:00:00 Nse-Obung Heal 2020-11-27 2020-11-27 Refill [facility], [facility] [id number] [place] 00:00:00 00:00:00 Nse-Obung Heal 2020-10-26 2020-10-26 Orders [facility], [facility] [id number] [place] 00:00:00 00:00:00 Only Nse-Obung Heal 2020-10-18 2020-10-18 Telephonic [facility], [facility] [id number] [place] 06:49:24 08:20:02 Encounter Nse-Obung He [facility] 2020-10-16 2020-10-16 Refill [facility], [facility] [id number] [place] 00:00:00 00:00:00 Nse-Obung Heal 2020-10-16 2020-10-16 Refill [facility], [facility] [id number] [place] 00:00:00 00:00:00 Nse-Obung Heal 2020-10-16 2020-10-16 Refill [facility], [facility] [id number] [place] 00:00:00 00:00:00 Nse-Obung Heal 2020-10-10 2020-10-10 Refill [facility], [facility] [id number] [place] 00:00:00 00:00:00 Nse-Obung Heal 2020-08-30 2020-08-30 Nurse Only [facility], [facility] [id number] [place] 00:00:00 00:00:00 Nse-Obung Heal 2020-08-22 2020-08-22 Nurse Only [facility] [id number] [place] 00:00:00 00:00:00 Nse-Obung Heal th 2020-08-18 2020-08-18 Telephonic [facility] [id number] [place] 06:52:51 08:54:18 Encounter RandolphObnneka Quintero alth 2020-08-18 2020-08-18 Orders [facility], [facility] [id number] [place] 00:00:00 00:00:00 Only [facility] 2020-08-15 2020-08-16 Emergency [facility] [id number] [facility] 20:43:00 06:25:00 Charmaine Lynch [place] [id number] [id number] [address] 2020-08-15 2020-08-15 Emergency X [facility] ERT [id number] [facility] 20:43:00 20:43:00 CHARMAINE grant [facility] 2020-08-09 2020-08-09 Telephonic [facility] [id number] [place] 07:08:15 13:34:02 Encounter Nse-Obnneka Quintero [facility] 2020-08-08 2020-08-08 Emergency [facility], [facility] [id number] [place] 15:13:00 19:39:00 Jean-Claude Bermudez h 2020-08-06 2020-08-06 Refill [facility] [id number] [place] 00:00:00 00:00:00 Nse-Obung Heal 2020-08-02 2020-08-02 Outpatient [facility] [id number] 15:57:00 23:59:00 Wilner amos 2020-08-02 2020-08-02 Telephonic Bright Mcfarlane [facility] [id number] [place] 06:26:44 13:05:57 Encounter Olesya Epps [facility] 2020-08-01 2020-08-01 Pre-Clinic Mich [facility] [id number] [place] 00:00:00 00:00:00 Review Olesya Matthew [facility] 2020-07-20 2020-07-[facility] [id number] [place] 00:00:00 00:00:00 Nse-Obung Heal 2020-07-19 2020-07-19 Telephonic Inalice, [facility] [id number] [place] 14:23:25 15:11:03 Encounter Nse-Obung He [facility] 2020-07-19 2020-07-19 [facility] [id number] [place] 00:00:00 00:00:00 Nse-Obung Heal 2020-07-18 2020-07-18 Refill Rehan, [facility] [id number] [place] 00:00:00 00:00:00 Geeta Bermudez 2018-12-18 2018-12-18 Outpatient [facility] [id number] [place] 00:00:00 00:00:00 [facility] 2018-12-08 2018-12-08 Outpatient [facility] [id number] [place] 00:00:00 00:00:00 [facility] 2018-10-16 2018-10-16 Outpatient [facility] [id number] [place] 00:00:00 00:00:00 [facility] 2018-09-11 2018-09-11 Outpatient [facility] [id number] [place] 00:00:00 00:00:00 [facility] 2018-09-10 2018-09-10 Outpatient [facility] [id number] [place] 00:00:00 00:00:00 [facility] 2018-09-09 2018-09-09 Outpatient [facility] [id number] [place] 00:00:00 00:00:00 Health 2018-09-01 2018-09-01 Outpatient [facility] [id number] [place] 00:00:00 00:00:00 [facility] 2018-08-27 2018-08-27 Outpatient [facility] [id number] [place] 00:00:00 00:00:00 Health 2018-08-25 2018-08-25 Outpatient [facility] [id number] [place] 11:01:40 11:01:40 Health 2018-08-18 2018-08-18 Outpatient [facility] [id number] [place] 05:55:00 05:55:00 Health 2018-08-18 2018-08-18 Outpatient [facility] [id number] [place] 00:00:00 00:00:00 Health 2018-08-13 2018-08-13 Outpatient [facility] [id number] [place] 07:57:39 07:57:39 [facility] 2018-08-13 2018-08-13 Outpatient [facility] [id number] [place] 00:00:00 00:00:00 [facility] 2018-07-30 2018-07-30 Outpatient [facility] [id number] [place] 08:22:23 08:22:23 [facility] 2018-07-28 2018-07-28 Outpatient [facility] [id number] [place] 08:55:47 08:55:47 [facility] 2018-07-23 2018-07-23 Outpatient [facility] [id number] [place] 09:56:26 09:56:26 [facility] 2018-07-16 2018-07-16 Outpatient [facility] [id number] [place] 00:00:00 00:00:00 [facility] 2018-06-30 2018-06-30 Outpatient [facility] [id number] [place] 00:00:00 00:00:00 [facility] 2018-06-30 2018-06-30 Outpatient [facility] [id number] [place] 00:00:00 00:00:00 [facility] 2018-06-26 2018-06-26 Outpatient [facility] [id number] [place] 13:50:31 13:50:31 [facility] 2018-06-16 2018-06-16 Outpatient [facility] [id number] [place] 10:56:38 10:56:38 [facility] 2018-06-11 2018-06-11 Outpatient [facility] [id number] [place] 08:52:00 08:52:00 [facility] 2018-06-11 2018-06-11 Outpatient [facility] [id number] [place] 00:00:00 00:00:00 [facility] 2018-06-04 2018-06-04 Outpatient [facility] [id number] [place] 07:53:18 07:53:18 [facility] 2018-06-04 2018-06-04 Outpatient [facility] [id number] [place] 00:00:00 00:00:00 [facility] 2018-05-22 2018-05-22 Outpatient [facility] [id number] [place] 13:21:07 13:21:07 [facility] 2018-04-29 2018-04-29 Outpatient [facility] [id number] [place] 00:00:00 00:00:00 [facility] 2018-04-17 2018-04-17 Outpatient [facility] [id number] [place] 00:00:00 00:00:00 [facility] 2018-04-10 2018-04-10 Outpatient [facility] [id number] [place] 00:00:00 00:00:00 [facility] 2018-04-06 2018-04-06 Outpatient [facility] [id number] [place] 00:00:00 00:00:00 [facility] 2018-04-03 2018-04-03 Outpatient [facility] [id number] [place] 00:00:00 00:00:00 [facility] 2018-04-03 2018-04-03 Outpatient [facility] [id number] [place] 00:00:00 00:00:00 [facility] 2018-04-03 2018-04-03 Outpatient [facility] [id number] [place] 00:00:00 00:00:00 [facility] 2018-04-03 2018-04-03 Outpatient [facility] [id number] [place] 00:00:00 00:00:00 [facility] 2018-03-13 2018-03-13 Outpatient [facility] [id number] [place] 00:00:00 00:00:00 [facility] 2018-02-11 2018-02-11 Outpatient [facility] [id number] [place] 00:00:00 00:00:00 [facility] 2018-02-03 2018-02-03 Outpatient [facility] [id number] [place] 00:00:00 00:00:00 [facility] 2018-01-27 2018-01-27 Outpatient [facility] [id number] [place] 16:33:01 16:33:01 [facility] 2018-01-27 2018-01-27 Outpatient [facility] [id number] [place] 00:00:00 00:00:00 [facility] 2018-01-26 2018-01-26 Outpatient [facility] [id number] [place] 00:00:00 00:00:00 [facility] 2018-01-23 2018-01-23 Outpatient [facility] [id number] [place] 00:00:00 00:00:00 [facility] 2018-01-23 2018-01-23 Outpatient [facility] [id number] [place] 00:00:00 00:00:00 [facility] 2018-01-16 2018-01-16 Outpatient [facility] [id number] [place] 13:10:20 13:10:20 [facility] 2018-01-16 2018-01-16 Outpatient [facility] [id number] [place] 00:00:00 00:00:00 [facility] 2018-01-16 2018-01-16 Outpatient [facility] [id number] [place] 00:00:00 00:00:00 [facility] 2018-01-09 2018-01-09 Outpatient [facility] [id number] [place] 00:00:00 00:00:00 [facility] 2018-01-08 2018-01-08 Outpatient [facility] [id number] [place] 09:15:59 09:15:59 [facility] 2018-01-08 2018-01-08 Outpatient [facility] [id number] [place] 00:00:00 00:00:00 [facility] 2018-01-07 2018-01-07 Outpatient [facility] [id number] [place] 10:00:39 10:00:39 [facility] 2018-01-06 2018-01-06 Outpatient [facility] [id number] [place] 00:00:00 00:00:00 [facility] 2018-01-01 2018-01-01 Outpatient [facility] [id number] [place] 00:00:00 00:00:00 [facility] 2017-12-30 2017-12-30 Outpatient [facility] [id number] [place] 00:00:00 00:00:00 [facility] 2017-12-29 2017-12-29 Outpatient [facility] [id number] [place] 00:00:00 00:00:00 [facility] 2017-12-25 2017-12-25 Outpatient [facility] [id number] [place] 00:00:00 00:00:00 [facility] 2017-12-24 2017-12-24 Outpatient [facility] [id number] [place] 15:42:00 15:42:00 [facility] 2017-12-22 2017-12-22 Outpatient [facility] [id number] [place] 07:44:57 07:44:57 [facility] 2017-12-22 2017-12-22 Outpatient [facility] [id number] [place] 00:00:00 00:00:00 [facility] 2017-12-17 2017-12-17 Outpatient [facility] [id number] [place] 00:00:00 00:00:00 [facility] 2017-11-18 2017-11-18 Outpatient [facility] [id number] [place] 00:00:00 00:00:00 [facility] 2017-10-28 2017-10-28 Outpatient [facility] [id number] [place] 00:00:00 00:00:00 [facility] 2017-10-16 2017-10-16 Outpatient [facility] [id number] [place] 08:30:23 08:30:23 [facility] 2017-09-22 2017-09-22 Outpatient [facility] [id number] [place] 09:59:28 09:59:28 [facility] 2017-09-22 2017-09-22 Outpatient [facility] [id number] [place] 00:00:00 00:00:00 [facility] 2017-09-16 2017-09-16 Outpatient [facility] [id number] [place] 10:52:56 10:52:56 [facility] 2017-09-08 2017-09-08 Outpatient [facility] [id number] [place] 00:00:00 00:00:00 [facility] 2017-09-01 2017-09-01 Outpatient [facility] [id number] [place] 00:00:00 00:00:00 [facility] 2017-08-21 2017-08-21 Outpatient [facility] [id number] [place] 08:06:47 08:06:47 [facility] 2017-08-13 2017-08-13 Outpatient [facility] [id number] [place] 00:00:00 00:00:00 [facility] 2017-08-12 2017-08-12 Outpatient [facility] [id number] [place] 10:49:59 10:49:59 [facility] 2017-07-30 2017-07-30 Outpatient [facility] [id number] [place] 12:33:19 12:33:19 [facility] 2017-07-29 2017-07-29 Outpatient [facility] [id number] [place] 11:05:14 11:05:14 [facility] 2017-07-21 2017-07-21 Outpatient [facility] [id number] [place] 14:11:52 14:11:52 [facility] 2017-07-18 2017-07-18 Outpatient [facility] [id number] [place] 06:30:02 06:30:02 [facility] 2017-07-18 2017-07-18 Outpatient [facility] [id number] [place] 00:00:00 00:00:00 [facility] 2017-07-18 2017-07-18 Outpatient [facility] [id number] [place] 00:00:00 00:00:00 [facility] 2017-07-18 2017-07-18 Outpatient [facility] [id number] [place] 00:00:00 00:00:00 [facility] 2017-07-15 2017-07-15 Outpatient [facility] [id number] [place] 10:37:12 10:37:12 [facility] 2017-07-15 2017-07-15 Outpatient [facility] [id number] [place] 09:37:37 09:37:37 [facility] 2017-07-11 2017-07-11 Outpatient [facility] [id number] [place] 14:24:21 14:24:21 [facility] 2017-07-11 2017-07-11 Outpatient [facility] [id number] [place] 13:51:53 13:51:53 [facility] 2017-07-11 2017-07-11 Outpatient [facility] [id number] [place] 00:00:00 00:00:00 [facility] 2017-07-10 2017-07-10 Outpatient [facility] [id number] [place] 00:00:00 00:00:00 [facility] 2017-07-03 2017-07-03 Outpatient [facility] [id number] [place] 10:46:35 10:46:35 [facility] 2017-07-03 2017-07-03 Outpatient [facility] [id number] [place] 00:00:00 00:00:00 [facility] 2017-06-27 2017-06-27 Outpatient [facility] [id number] [place] 00:00:00 00:00:00 [facility] 2017-06-20 2017-06-20 Emergency [facility] [id number] [place] 11:15:58 11:15:58 [facility] 2017-06-20 2017-06-20 Outpatient [facility] [id number] [place] 07:16:48 07:16:48 [facility] 2017-05-26 2017-05-26 Outpatient [facility] [id number] [place] 08:05:25 08:05:25 [facility] 2017-04-01 2017-04-01 Outpatient [facility] [id number] [place] 00:00:00 00:00:00 [facility] 2017-03-10 2017-03-10 Outpatient [facility] [id number] [place] 00:00:00 00:00:00 [facility] 2017-01-31 2017-01-31 Outpatient [facility] [id number] [place] 11:32:01 11:32:01 [facility] 2017-01-24 2017-01-24 Outpatient [facility] [id number] [place] 10:21:42 10:21:42 [facility] 2017-01-24 2017-01-24 Outpatient [facility] [id number] [place] 00:00:00 00:00:00 [facility] 2016-12-24 2016-12-24 Outpatient [facility] [id number] [place] 00:00:00 00:00:00 [facility] 2016-11-26 2016-11-26 Outpatient [facility] [id number] [place] 10:03:23 10:03:23 [facility] 2016-11-15 2016-11-15 Outpatient [facility] [id number] [place] 00:00:00 00:00:00 [facility] 2016-10-01 2016-10-01 Outpatient [facility] [id number] [place] 00:00:00 00:00:00 [facility] 2016-09-22 2016-09-22 [facility] [id number] [place] 17:56:05 00:00:00 Health Results Test Description Test Time Test Comments Results Result Comments Source [facility] 2021-07-29 03:13:05 Test Item Value Reference Range Interpretation Comme nts NA (test code = 5866894111) 141 mmol/L 135-145 K (test code = 3978321228) 3.3 mmol/L 3.5-5.0 L CL (test code = 3169393837) 105 mmol/L 98-108 CO2 TOTAL (test code = 3970476886) 26 mmol/L 23-31 AGAP (test code = 1479762157) 2-16 BUN (test code = 5580696148) 11 mg/dL 7-23 GLUCOSE (test code = 8992822207) 92 mg/dL 70-110 CREATININE (test code = 0.96 mg/dL 0.60-1.25 1677245825) TOTAL BILI (test code = 0.7 mg/dL 0.1-1.0 5161667987) CALCIUM (test code = 8069351595) 9.7 mg/dL 8.6-10.6 T PROTEIN (test code = 5134500223) 7.4 g/dL 6.3-8.2 ALBUMIN (test code = 6828382620) 4.1 g/dL 3.5-5.0 ALK PHOS (test code = 7042142959) 116 U/L 34-122 ALTv (test code = 1742-6) 16 U/L 5-50 AST(SGOT) (test code = 7793627524) 27 U/L 13-40 eGFR (test code = 3647969697) mL/min/1.73m2 LUCINDA (test code = LUCINDA) Association [...] tests). Lab Interpretation (test code = Abnormal 14213-0) [facility] Test Item Value Reference Range Interpretation Comments LIPASE (test code = 0890467508) 72 U/L 0-220 Lab Interpretation (test code = Normal 10760-7) [facility] [id number] 02:12:44 Test Item Value Reference Range Interpretation Comments WBC (test code = See_Comment L [Automated 9690-2) message] The sy stem which generated this result transmitted reference range : 4.20 - 10.70 10*3/?L. The reference range was not used to interpret this result as normal/abnormal . RBC (test code = See_Comment [Automated 149-8) message] The sy stem which generated this [...] RDW-SD (test code = 50.5 fL 38.5-51.6 50321-0) RDW-CV (test code = 14.3 % 12.1-15.4 788-0) PLT (test code = See_Comment [Automated 777-3) message] The sy stem which generated this result transmitted reference range : 150 - 328 10*3/ ?L. The reference r ovidio was not used to interpret this result as normal/abnormal . MPV (test code = 9.6 fL 9.8-13.0 L 56025-4) NRBC/100 WBC (test See_Comment [Automat ed code = 7276490994) message] The system which generated this result transmitted reference range : 0.0 - 10.0 /100 WBCs. The refer ence range was not u sed to interpret th is result as normal/abnormal . NRBC x10^3 (test code <0.01 See_Comment [Auto mated = 3428530527) message] The s ystem which generated this result transmitted reference range : 10*3/?L. The reference range was not used to interpret this result as normal/abnormal . GRAN MAT (NEUT) % 51.4 % (test code = 770-8) IMM GRAN % (test code 0.00 % = 2530240917) LYMPH % (test code = 34.9 % 736-9) MONO % (test code = 10.1 % 5905-5) EOS % (test code = 2.4 % 713-8) BASO % (test code = 1.2 % 706-2) GRAN MAT x10^3(ANC) 1.74 10*3/uL 1.99-6.95 L (test code = 2746414682) IMM GRAN x10^3 (test <0.03 0.00-0.06 code = 6448035982) LYMPH x10^3 (test code 1.18 10*3/uL 1.09-3.23 = 731-0) MONO x10^3 (test code 0.34 10*3/uL 0.36-1.02 L = 742-7) EOS x10^3 (test code = 0.08 10*3/uL 0.06-0.53 711-2) BASO x10^3 (test code 0.04 10*3/uL 0.01-0.09 = 704-7) Lab Interpretation Abnormal (test code = 18732-7) [facility] ZACKERY+gpjwx2257-70-15 23:12:09 Test Item Value Reference Range Interpretation Comments Hospitalized? (test Yes code = 78665-4) ICU? (test code = No 25449-4) Symptomatic as defined No by CDC? (test code = 18846-7) Employed in No Healthcare? (test code = 05148-4) Resident in a No congregate care setting (including nursing homes, residential care for people with intellectual and developmental disabilities, psychiatric treatment facilities, group homes, board and care homes, homeless snf, foster care or other): (test code = 98291-6) SARS-CoV-2 RNA Resp Ql NOT DETECTED Not Detected INTER PRETATION: No ZACKERY+probe (test code = detec table levels 71897-6) of SARS-CoV-2 Coronavirus (COVID-19) were present in [...] its performance characteristics were verified by the [facility] molecular diagnostics laboratory and is authorized for clinical diagnostic use. This laboratory is certified under the Clinical Laboratory Improvement Amendments (CLIA) as qualified to perform high complexity clinical laboratory testing.SARS-CoV-2 RNA Resp Ql ZACKERY+gsjas5261-33-02 22:19:24 Test Item Value Reference Range Interpretation Comments Hospitalized? (test Yes code = 09282-3) ICU? (test code = Yes 261007-6) Symptomatic as defined No by CDC? (test code = 55432-8) Employed in No Healthcare? (test code = 76400-1) Resident in a No congregate care setting (including nursing homes, residential care for people with intellectual and developmental disabilities, psychiatric treatment facilities, group homes, board and care homes, homeless snf, foster care or other): (test code = 35439-7) SARS-CoV-2 RNA Resp Ql NOT DETECTED Not Detected INTER PRETATION: No ZACKERY+probe (test code = detec table levels 16152-8) of SARS-CoV-2 Coronavirus (COVID-19) were present in [...] its performance characteristics were verified by the [facility] molecular diagnostics laboratory and is authorized for clinical diagnostic use. This laboratory is certified under the Clinical Laboratory Improvement Amendments (CLIA) as qualified to perform high complexity clinical laboratory testing.SARS-CoV-2 RNA Resp Ql ZACKERY+xeiyv1361-24-62 05:36:08 Test Item Value Reference Range Interpretation Comments Hospitalized? (test Yes code = 78095-0) ICU? (test code = No 72308-0) Symptomatic as defined No by CDC? (test code = 93884-0) Employed in No Healthcare? (test code = 59311-0) Resident in a No congregate care setting (including nursing homes, residential care for people with intellectual and developmental disabilities, psychiatric treatment facilities, group homes, board and care homes, homeless snf, foster care or other): (test code = 07571-2) SARS-CoV-2 RNA Resp Ql NOT DETECTED Not Detected INTER PRETATION: No ZACKERY+probe (test code = detec table levels 44473-1) of SARS-CoV-2 Coronavirus (COVID-19) were present in [...] its performance characteristics were verified by the [facility] molecular diagnostics laboratory and is authorized for clinical diagnostic use. This laboratory is certified under the Clinical Laboratory Improvement Amendments (CLIA) as qualified to perform high complexity clinical laboratory testing.SARS-CoV-2 RNA Resp Ql ZACKERY+aoawu4097-36-13 13:46:23 Test Item Value Reference Range Interpretation Comments Hospitalized? (test No code = 18978-4) ICU? (test code = No 13149-0) Symptomatic as defined No by CDC? (test code = 67368-9) Employed in No Healthcare? (test code = 86507-3) Resident in a No congregate care setting (including nursing homes, residential care for people with intellectual and developmental disabilities, psychiatric treatment facilities, group homes, board and care homes, homeless snf, foster care or other): (test code = 03739-6) SARS-CoV-2 RNA Resp Ql NOT DETECTED Not Detected INTER PRETATION: No ZACKERY+probe (test code = detec table levels 80169-2) of SARS-CoV-2 Coronavirus (COVID-19) were present in [...] its performance characteristics were verified by the [facility] molecular diagnostics laboratory and is authorized for [...] = LUCINDA) Reference value: No fungus isolated [facility] Cath & Coronary Bhrukwelskx9518-69-46 16:10:00LT CATH \\T\\ CORONARY ANGIOGRAPHY Invasive Cardiology Report BENNETT IBARRAD Age: 61 Gender: M : 1960 Exam Date: 05/02/2021 14:39 Exam Location: [facility] Ordering Phys: SURINDER ZEPEDA Referring Phys: Surinder Zepeda Reading Phys: Surinder Zepeda Fellow Phys: Terry Wynne M.D. 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 Planned [facility] for pre-operative risk stratification. Procedures Performed: After explaining the risks and benefits of theprocedure informed consent was obtained. (See nursing notes for medications administered.) The rightradial was prepped in a sterile fashion and [...] Dr Zepeda Fellow: Sherrell Procedure Notes: After explainingthe risks and benefits of the procedure informed consent was obtained. (See nursing notes for medications administered.) The right radial was prepped in a sterile fashion and draped. 2% lidocaine was used to infiltrate the right arm by radial artery. A 6 F terumo slender sheath was placed in the rightradial artery using the modified Seldinger technique. Coronary [...] Insufficiency: EF: % EF Method: Left Ventriculography FindingsAortography Aortic Stenosis: Aortic Insufficiency: Aortography Findings: Coronary Diagram Dominance:Right Vessel Angiography Findings LM: Large caliber long vessel that gives off a LAD and LCx withoutsignificant angiographic disease. LAD: Large caliber vessel that gives off a medium caliber diagonal. At the distal LAD the vessel bifurcates to two small vessels. No significant angiographic disease. L Cx: Large caliber vessel that gives off a [...] Signed) Final Date: 08 May 2021 16:[address] [facility] [id number] 15:01:54 Test Item Value Reference Range Interpretation Comments Anaerobe Culture (test No anaerobes isolated code = 635-3) in 5 days LUCINDA (test code = LUCINDA) Reference value: No [facility]erobes isolated [facility] [id number] 15:00:35 Test Item Value Reference Range Interpretation Comments Case Report (test code Surgical Pathology = [id number]) Case: [id number] Authorizing Provider: Yocasta Mills MD Collected: 05/03/2021 12:17 PM Ordering Location: [facility] Med/Surg Received: 05/07/2021 11:22 AM Pathologist: Bradly Hansen MD Specimen: Iliac Artery, right, Right Iliac Artery Graft FINAL DIAGNOSIS (test m0nifMSbVWDgtNW4UiZuCY code = 17838184) Ldc7ccm4OaaEKssMGeIWfa pFBedrAkhz38wQV0tO08GX 3nZRFtWhE7VZPvzdS1Jua3 NBVzLYYdjSOtS488b8bvs9 tpzxIhyBR6nMwvUJGqfwjc DuD6VYtdMBJbfvooCQq6QA suWLWboVM2WCNhvHPmD0Zg AGZrGP4mwub3AIT4BXqaEG QkNcP7KNMcwUYwWLDnkSjn VCuxd168BIE7RzVcLXXewy DeoChnrM9sRgQuTBALIImG VCBJTElBQyBBUlRFUlkgR1 DYYcYgPMQLIY7JLXy7NTUk uwu5LMOmOYLQXE8AKNmAY4 WpKr0MIGdSEoYAEJXYTdzB TCBJREVOVElGSUVEXHBhcl u8IVSoJPKCFVAeQ5OGX4sO UT5bKVMcGe0QBGvWM9PJCE 9OTFlccGFyfQ== Gross Description (test i1cprAHjOTPemZFVMVHfTr code = 73058) fvjhNtLLNrxYMuW9Hzvxwb VZjhDM4kOP5qvAxlhWPapL UfCR3CUHZvKqByFZZejYHt rtLeMhHtUZDxfJHthRF0AO MjHO8lteioKCqeNAunEMRp mvH2GEBmbITcL4RoEQSwON 1lzdkiSYA1PMszqC0pciDP JkvsYu0lvGRonPpmAoRaWk NoYXJzZXQwXGZuaWwgQXJp BJp8tM1HJeqnRRS0CYWFXj lmQBDsNH6Sk0boHUXdfLNq QYP8PRzsoXNcYNBuCTPmUN l3HIMmPSmizIOxGZ3kdPhv FpcuaVrrr7AfdSLdINtzKD NuYVMzCYwqTMSzDX4BWsBp NP79GDipPSDkSJa3KBw5NV 0XFfUsOZRvSRO0QnEuKfFp IKy0UDazVX9MUBCgXldgNA i7ZUSdKBD7AVsbXCh9HWRx XFxmIEFyaWFsIFxcZnMgOC YmBNQeGWyydyT9QPQwKFtj XGZzMTYgIFxwYXIgDQpccG ojsR9fISFmC70sk7PYr0Mu NF4FHJElatDukOZfxIMuJP J5CuIdBRW8JJF3HPr4dMWw OaGjqJrhZGdxLAI6UuKjGW h8pSRpEuGduLg4GKOcZFX9 WZi1LYl2tQH1NEAwqTe2Qf WyFTK6MeiwZGq9tQb5OKOo hIu0CnIhFXZ2ZQZhZLHeIC jwxNSxJ4mgJvdnunVvDBZf VOExfPBmFB1zxQLhbHJhKx LfBZAqHSRkT3n4EOuniMBj IGFydGVyeSBncmFmdFxwYX KbVUclhTUiET1UQUStuiCq vFTxuPNdJR5CLVjsWQJsn4 WxkWEyfdDsINb4WVRwpQ3q p73lYTQpsqKiqQQhFPteKN T3fXYxMJOqFNLpLCZsIZ83 I9YontRgADNcLOJRPnpiYA JWY6gUVMmnYHKKXMgNLGRu UT7kPWrlJVprihIzp7HhBH 41kIMiidYsuePeJ3h6WK2e HZRdTUOqrL2uLH77nUQcof BTMjItMDAwMzQsIGFuZCBp gRWeyxGqP0WrjRXpalpfPS UckQQgZJJgiTZrc0x5aS8v OJWcxl4caOMhEReaNJV3qJ GrDQHwOREyEY4kHO5crNAg AN6vKSAsY4Kuo9wncgTfgU 1iZXIuXHBhciANClxwYXIg DQpSZWNlaXZlZCBpbiBmb3 JtYWxpbiBsYWJlbGVkICJS SUdIVCBJTElBQyBBUlRFUl jvGi4VCIzTCnERZ2PQPlQi dtGfIRZvINWcqBRbXR4riG rdLO2hXBRvY42vjP3dBTny bLI7PMUbOX9fWIMxHTGpTD BjbSBhbmQgMSBjbSBpbiBk cAZcJAEhhpMrKQGcn7EhoK EovXqcyfN0iTAhbANiQ13t t6igvGcmWkGuAnUvsJ38pJ 1zfUdmUKGicoUtR61qnBC1 SHHjMFiiMANWa8LnIXYtz5 VwSAqdvp01HEbwSJ56tMUl YWJsZSBpbnNjcmlwdGlvbn MsMYTEqoSbICD7pF8gbvSg kiEia4CivIn4sCScRwPuTT wraiOsAAGrVDluEGpnp2Yf RI1wbPrpVRMWiCmhUWYin4 OtlQZkfPrzwA7nnqMsoWJy LiAgXHBhciANClxwYXIgDQ sdSoRmJbWIDI2tXOTqHVRo pCFsYY8RWQO2zI5fb4cmu5 HvHAPxcUA6GA07YX7VZRQi CYctELItcDVFUKA2HR2eCC ccmHBdfzulBMBkH0FgG4Yc dfUwxWIkPFFyvvEsu2qlPB S9HLBknJThiCUuTeJdVpgj ASP5OIngg5wpQYY7WGZvdP VsdDAgDQpcZnMxNntcZXBp S0TaN9YjedV7IAt2 Microscopic Description o1rdvKBrMHJlzIO4VsKjAF (test code = 452649056) Wbq3sep6RwsNKccXRxJXno vLGwmwMgvm55pVD6xC66XL 8iMDDlUoN6RIFiydV2Adg1 KIOnFSAcqMXbW040r6flf4 lavfDmwLO6IYVuWHReV1Dx YU0pHMRyqTZcL17lrFPuEZ X1TQTrPBYwpTTkWBGnCRU0 AEEcdFQrO2fiBDHyGV1rrg dwARxrQMdsAOUjvAS4WYGv jSXfB1TuFCLeNZyyAJBqbw d2GzNhKq8uhAZnoEbsRNqd YXJkXHBsYWluXGZzMjBcY2 IlAE0jfXMdGJHlx0VvPZIa XHBhclxmczIyXGNmMFxwYX JcZnMxNlxjZjEgSSBoYXZl IYKsgdIchcGayCmsiuO8dF S6QSBtcAfnLJVdiMV1GC51 AABaWCGmxlC5oA4vvsSoo3 IgdGhlIHNwZWNpbWVuKHMp LCByZXZpZXdlZCBhbmQgYW dyZWVkIHdpdGggdGhlIHJl g4dfCJ19R2ZeuUvxyhhfWV fskHBafFIveMP4vM3gLjoe YXJ9 [facility] Gram Sbdvl0314-09-69 10:13:02 Test Item Value Reference Range Interpretation [...] the reference value is considered "No growth". [facility] RBC Units, 2 Yndyq9402-72-55 00:57:00 Test Item Value Reference Range Interpretation Comments RBC UNITS (test code = compatible 90098495) Unit ABO Type (test code = B 58793970) Unit Rh Type (test code = POS 17390567) Product Code (test code = E4545 58873564) Unit Number (test code = [id number] 57052521) Unit Status (test code = released 72144392) ISBT Product Code (test code = F1864V91 43645) Blood Type (test code = 47454) 7300 Blood Expiration Date (test code = 29912) [facility] GLUCOSE POC docked hvnvzk0853-54-69 17:13:14 Test Item Value Reference Range Interpretation Comments Glucose POC (test code = 31295329) 175 mg/dL 74-106 H Lab Interpretation (test code = Abnormal 87294-6) [facility], [id number] 00:33:47 Test Item Value Reference Interpretation Comments Range COVID-19 Detected Not Detected A INTERPRETATION: (SARS-COV-2) (test This isabela ent's code = 30323-5) sample had detectable RNA present for the [...] its performance characteristics were verified by the [facility] molecular diagnostics laboratory and is authorized for clinical diagnostic use. This laboratory is certified under the Clinical Laboratory Improvement Amendments (CLIA) as qualified to perform high complexity clinical laboratory testing. Lab Interpretation Abnormal (test code = 08345-3) [facility]-CoV-2 RNA Resp Ql ZACKERY+wvvao6800-35-69 00:33:47 Test Item Value Reference Range Interpretation Comments Hospitalized? (test code No = 83688-4) ICU? (test code = No 23959-7) Symptomatic as defined No by CDC? (test code = 60098-3) Employed in Healthcare? No (test code = 23165-2) Resident in a congregate No care setting (including nursing homes, residential care for people with intellectual and developmental disabilities, psychiatric treatment facilities, group homes, board and care homes, homeless snf, foster care or other): (test code = 63830-7) SARS-CoV-2 RNA Resp Ql DETECTED Not Detected A INTER PRETATION: This ZACKERY+probe (test code = jonathon nt's sample had 62347-4) detectable RNA present for the SARS-CoV-2 Coronavirus [...] its performance characteristics were verified by the [facility] molecular diagnostics laboratory and is authorized for clinical diagnostic use. This laboratory is certified under the Clinical Laboratory Improvement Amendments (CLIA) as qualified to perform high complexity clinical laboratory testing.POCT CREATININE POC docked qkyzdt3257-13-09 19:25:19 Test Item Value Reference Range Interpretation Comments Creatinine POC (test 1.2 mg/dL 0.6-1.3 Physici an Notified code = 79328564) eGFR If non- Am 64 See_Comment L [Aut omated message] (test code = 48761914) The s ystem which generated this result transmit shalom reference range : >=90 mL/min/1.7 3 m2. The reference r ovidio was not used to interpret this result as normal/abnormal . eGFR If Am (test 74 See_Comment L [A utomated message] code = 74937392) The system which generated this result transmit shalom reference range : >=90 mL/min/1.7 3 m2. The reference r ovidio was not used to interpret this result as normal/abnormal . Lab Interpretation (test Abnormal code = 33158-7) [facility] BMP POC docked btktxs8342-58-30 19:24:49 Test Item Value Reference Range Interpretation Comments Sodium POC (test code = 142 mmol/L 136-145 16978731) Potassium POC (test code 4.1 mmol/L 3.5-5.1 = 23785645) Chloride POC (test code 103 mmol/L 98-107 = 36271969) TCO2 POC (test code = 33 mmol/L 21-32 H Physic miguel angel Notified 27232552) Urea Nitrogen POC (test 21 mg/dL 7-18 H code = 08008689) Glucose POC (test code = 95 mg/dL 74-106 57336825) Hemoglobin POC (test 18.0 g/dL 12-16 H code = 22235855) Hematocrit POC (test 53.0 % 37.0-47.0 H code = 19885569) Lab Interpretation (test Abnormal code = 46421-2) [place] [address] Lead [id number] 18:57:4412 LEAD EKG FOR [facility] Test Date: 0765-13-98Ssr Name: SRIRAM IBARRA Department: [id number] ID: [id number] Room: [place] [address]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 (test Yes code = 14717-6) ICU? (test code = No 76514-2) Symptomatic as defined No by CDC? (test code = 60724-0) Employed in No Healthcare? (test code = 57018-0) Resident in a No congregate care setting (including nursing homes, residential care for people with intellectual and developmental disabilities, psychiatric treatment facilities, group homes, board and care homes, homeless snf, foster care or other): (test code = 69205-0) SARS-CoV-2 RNA Resp Ql NOT DETECTED Not Detected INTER PRETATION: No ZACKERY+probe (test code = detec table levels 66971-4) of SARS-CoV-2 Coronavirus (COVID-19) were present in [...] its performance characteristics were verified by the [facility] molecular diagnostics laboratory and is authorized for clinical diagnostic use. This laboratory is certified under the Clinical Laboratory Improvement Amendments (CLIA) as qualified to perform high complexity clinical laboratory testing.ACTIVATED PARTIAL THRMPLAS [id number] 20:27:47 Test Item Value Reference Range Interpretation Comments APTT Patient (test See_Comment [Automat ed code = 3173-2) message] The system which generated this result transmitted reference range : 23 - 38 Seconds . The reference range was not used to interpr et this result as normal/abnormal . LUCINDA (test code = LUCINDA) The [facility] patient population mean normal value for aPTT is 30 seconds. Lab Interpretation Normal (test code = 99109-8) [facility] / [id number] 20:25:26 Test Item Value Reference Range Interpretation [...] tions. Lab Interpretation (test Normal code = 35404-1) [facility] CenterTROP[facility] [id number] 20:18:03 Test Item Value Reference Interpretation Comments Range TROPONIN I (test 0.003 ng/mL See_Comment [Automated code = 4257173039) message] The system which generated this result [...] biotin. Lab Interpretation Normal (test code = 82791-9) [facility] Center[facility]-TERMINAL JFQ-[id number] 20:15:02 Test Item Value Reference Range Interpretation Comments NT-proBNP (test code 213 pg/mL See_Comment H [Autom ated = 0959544136) message] The system which generated this result transmitted reference range : <=125. The reference range was not used to interpret this result as normal/abnormal . LUCINDA (test code = LUCINDA) Biotin has been reported to cause a negative bias, interpret results relative to patient's use of biotin. Lab Interpretation Abnormal (test code = 14478-8) [facility]COMP. METABOLIC PANEL (20109)2021-03-07 20:06:41 Test Item Value Reference Range Interpretation Comments NA (test code = 137 mmol/L 135-145 5144025158) K (test code = 4.5 mmol/L 3.5-5.0 8178636512) CL (test code = 105 mmol/L 98-108 6580737844) CO2 TOTAL (test code = 26 mmol/L 23-31 4585712317) AGAP (test code = 2-16 3282410455) BUN (test code = 10 mg/dL 7-23 7253909642) GLUCOSE (test code = 102 mg/dL 70-110 1275754924) CREATININE (test code = 1.07 mg/dL 0.60-1.25 9573824639) TOTAL BILI (test code = 0.7 mg/dL 0.1-1.4 1458872099) CALCIUM (test code = 9.5 mg/dL 8.6-10.6 0036473860) T PROTEIN (test code = 6.5 g/dL 6.3-8.2 9477013282) ALBUMIN (test code = 3.4 g/dL 3.5-5.0 L 5619611429) ALK PHOS (test code = 111 U/L 34-122 4013354270) ALTv (test code = 26 U/L 5-50 1742-6) AST(SGOT) (test code = 42 U/L 13-40 H 1503866297) eGFR (test code = mL/min/1.73m2 1609783634) LUCINDA (test code = LUCINDA) Association of [...] tests). Lab Interpretation Abnormal (test code = 65187-2) [facility] CenterLIPASE2021-[facility] 20:06:20 Test Item Value Reference Range Interpretation Comments LIPASE (test code = 4454140775) 28 U/L 0-220 Lab Interpretation (test code = Normal 00020-0) [facility] CenterCBC WITH [id number] 19:56:15 Test Item Value Reference Range Interpretation [...] (test code = 53.6 fL 38.5-51.6 H 80609-1) RDW-CV (test code = 14.6 % 12.1-15.4 788-0) PLT (test code = See_Comment H [Automated 777-3) message] The sy stem which generated this result transmitted reference range : 150 - 328 10*3/ ?L. The reference r ovidio was not used to interpret this result as normal/abnormal . MPV (test code = 9.5 fL 9.8-13.0 L 74142-9) NRBC/100 WBC (test See_Comment [Automat ed code = 6380794206) message] The system which generated this result transmitted reference range : 0.0 - 10.0 /100 WBCs. The refer ence range was not u sed to interpret th is result as normal/abnormal . NRBC x10^3 (test code <0.01 See_Comment [Auto mated = 8227852691) message] The s ystem which generated this result transmitted reference range : 10*3/?L. The reference range was not used to interpret this result as normal/abnormal . GRAN MAT (NEUT) % 60.2 % (test code = 770-8) IMM GRAN % (test code 0.30 % = 4545298236) LYMPH % (test code = 26.9 % 736-9) MONO % (test code = 9.1 % 5905-5) EOS % (test code = 1.5 % 713-8) BASO % (test code = 2.0 % 706-2) GRAN MAT x10^3(ANC) 2.06 10*3/uL 1.99-6.95 (test code = 1281702312) IMM GRAN x10^3 (test <0.03 0.00-0.06 code = 9136219476) LYMPH x10^3 (test code 0.92 10*3/uL 1.09-3.23 L = 731-0) MONO x10^3 (test code 0.31 10*3/uL 0.36-1.02 L = 742-7) EOS x10^3 (test code = 0.05 10*3/uL 0.06-0.53 L 711-2) BASO x10^3 (test code 0.07 10*3/uL 0.01-0.09 = 704-7) Lab Interpretation Abnormal (test code = 36421-8) [facility] CenterLactic Acid Whole Sgiil6672-01-03 19:51:39 Test Item Value Reference Range Interpretation Comments LACTIC ACID (test code = 1.46 mmol/L 0.50-2.20 2383973876) Lab Interpretation (test code = Normal 36114-8) [facility] CenterSARS-CoV-2 ORF1ab Resp Ql ZACKERY+[id number] 20:18:30 Test Item Value Reference Range Interpretation Comments SARS-CoV-2 ORF1ab NOT DETECTED Not Detected INTERPRETA TION: No Resp Ql ZACKERY+probe detectable levels of (test code = SARS-CoV-2 Araceli navirus 64042-3) (COVID-19) were present in this patient 's [...] with SARS-CoV-2 Araceli navirus (COVID-19). COMMENT: This [employer] SARS-CoV-2 molecular diagnostic assay utilizes Pit Manager Mediated Amplification (TMA) technology to rapidly detect the SARS-CoV-2 (COVID-19) virus from respiratory samples. In accordance with the FDA's guidance document "Policy for Diagnostic Tests for Coronavirus Disease- 2019 during the Public Health Emergency", this test was developed, and its performance characteristics were verified by the [facility] molecular diagnostics laboratory and is authorized for clinical diagnostic use. This laboratory is certified under the Clinical Laboratory Improvement Amendments (CLIA) as qualified to perform high complexity clinical laboratory testing.NONINVASV EXTREM EXAM,MULT,[id number] 10:42:00NONINVASV EXTREM EXAM,FANNIE STERLING Lower Extremity Segmental Pressures Report Name: SRIRAM IBARRA Age: 60 Gender: M : 1960 Exam Date: 02/02/2021 10:20 Exam Location: [facility] Ordering Phys: YOCASTA MILLS (shilpa/feliz) Referring Phys: Reading Phys: Yocasta Mills MD FellowPhys: Fellow Phys: Technologist: Lauryn Griffith RVT Reason For Exam: Indication: bypass graft surveillance (h/o Right iliofemoral bypass 12/2019, 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 Previous Vascular Surgery: YES RIGHT Segmental Pressures (mmHg) Ankle/Brachial Index Brachial 129 High Thigh Low Thigh Calf Posterior Potmxm42 0.667 Dorsalis Pedis77 0.597 Peroneal Metatarsal Toe Pressure CRISTINA: 0.667 TBI: LEFT SegmentalPressures (mmHg) Ankle/Brachial Index Brachial 128 High Thigh Low Thigh Calf Posterior Vwhlst93 0.612 Dorsalis Pedis88 0.682 Peroneal Metatarsal Toe [...] this study are: CONCLUSIONS Bilateral CRISTINA suggests moderate arterial occlusive disease. There are changes since last exam on 04/07/2020; there is a decrease in left CRISTINA however still in the moderate range. 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 Hrim-sx-lljxu femorofemoralbypass (2013) Bilateral common femoral artery endarterectomies with patch angioplasties (2016),Exploration and embolectomy of the left popliteal, AT, and PT arteries (2017) Left common femoral artery to popliteal artery bypass using ipsilateral reversed GSV (2018) Previous Vascular Surgery: YES RIGHT LEFT Velocity Velocity (cm/s) (cm/s) Ratio Ratio 69 [place] Artery 80 Prox Anast Prox Graft 70 Prox/Mid Graft Mid Graft 64 Mid Graft Mid/Dist Graft 75 Dist Graft 245 Dist Anast [place] Artery FINDINGS The re is patency of the right ilio-femoral bypass Dacron graft with elevated velocity at the distal anastomosis. Right MEDICAL EQUIPMENT REPAIR TECHNICIAN = 236 cm/sec Right prox SFA = 102 cm/sec Right SFA mid thigh = 37 cm/sec Right SFA dist thigh = 46 cm/sec Right SFA occlusion with large collaterals There is absence of colorflow andDoppler signals in the left femoral to right femoral bypass suggestive of occlusion. Left MEDICAL EQUIPMENT REPAIR TECHNICIAN = 238 cm/sec Left MEDICAL EQUIPMENT REPAIR TECHNICIAN to pop A bypass using ipsilateral reversed GSV was not visualized, suggestive of occlusion. There are multiple large collaterals noted in the left lower thigh. Further imaging may be recommended. See CRISTINA report. The results of this study are: CONCLUSIONS There is patency of the right ilio-femoral bypass Dacron graft with elevated velocity at the distal anastomosis. Left MEDICAL EQUIPMENT REPAIR TECHNICIAN to pop A bypass using ipsilateral reversed GSV was not visualized, suggestive of occlusion. RECOMMENDATIONS Additional imaging. Yocasta Mills MD (Electronically Signed) Final Date: 14 February 2021 10:40 [facility] ABDOMEN PELVIS W [id number] 07:19:25 1. Changes of bypass graft along the ventral lower abdomen/upper pelvicabdominal wall. There is no contrast within the bypass graft whichdemonstrates abnormal contours with rim enhancement. This couldbesecondary to chronic thrombus, though differential would include abscessformation. Correlate clinically. 2. Small fat-containing umbilical hernia. RL: 6200AFC: 16379 Patient name: SRIRAM CHASE: 1960 60 years [...] right femoral artery.. The lungbases are clear. [facility], Radiant Results Inft User - 08/16/2020 2:20 [...] abscessformation. Correlate clinically.2.Small fat-containing umbilical hernia.RL: 6200AF: 26824 [facility]. METABOLIC PANEL (05058)2020-08-16 04:32:43 Test Item Value Reference Range Interpretation Comments NA (test code = 140 mmol/L 135-145 0831755961) K (test code = 3.9 mmol/L 3.5-5.0 9110995663) CL (test code = 110 mmol/L 98-108 H 4144498391) CO2 TOTAL (test code = 26 mmol/L 23-31 8632705219) AGAP (test code = 2-16 5472048688) BUN (test code = 12 mg/dL 7-23 8823644065) GLUCOSE (test code = 84 mg/dL 70-110 4408139374) CREATININE (test code = 0.83 mg/dL 0.60-1.25 5621498656) TOTAL BILI (test code = 0.5 mg/dL 0.1-1.7 2682206401) CALCIUM (test code = 8.5 mg/dL 8.6-10.6 L 6648963866) T PROTEIN (test code = 6.0 g/dL 6.3-8.2 L 6324080508) ALBUMIN (test code = 3.5 g/dL 3.5-5.0 5182554475) ALK PHOS (test code = 97 U/L 34-122 8278940825) ALTv (test code = 8 U/L 5-50 1742-6) AST(SGOT) (test code = 24 U/L 13-40 5806316205) eGFR (test code = mL/min/1.73m2 5072695502) LCUINDA (test code = LUCINDA) Association of Glomerular [...] tests). Lab Interpretation Abnormal (test code = 33874-9) [facility] EgdkgoOLSOUVOYYC7521-44-27 04:19:53 Test Item Value Reference Range Interpretation Comments APPEARANCE (test code = Clear Clear 2842563628) COLOR (test code = Straw Yellow A 0091015899) PH (test code = 4.8-8.0 9433323792) SP GRAVITY (test code = 1.003-1.030 3460273081) GLU U QUAL (test code = Normal Normal 9327980927) BLOOD (test code = Negative Negative 0747160669) KETONES (test code = Negative Negative 5448310592) PROTEIN (test code = Negative Negative 2887-8) UROBILIN (test code = Normal Normal 1715021895) BILIRUBIN (test code = Negative Negative 2248224501) NITRITE (test code = Negative Negative 1118138651) LEUK MARBELLA (test code = Negative Negative 6312263545) RBC/HPF (test code = <1 See_Comment [Autom ated message] 4607988202) The system nCino generated this result transmitted ref erence range: 0 - 3 HP F. The reference range was not used to int erpret this result as normal/abnormal . WBC/HPF (test code = See_Comment [Autom ated message] 0536229007) The system nCino generated this result transmitted ref erence range: 0 - 5 HP F. The reference range was not used to int erpret this result as normal/abnormal . BACTERIA (test code = Negative Negative 4839186234) Lab Interpretation (test Abnormal code = 43690-8) [facility] WITH [id number] 03:57:39 Test Item Value Reference Range Interpretation Comments WBC (test code = See_Comment [Automated 1690-2) message] The sy stem which generated this result transmitted reference range : 4.20 - 10.70 10*3/?L. The reference range was not used to interpret this result as normal/abnormal . RBC (test code = See_Comment [Automated 849-8) message] The sy stem which generated this [...] RDW-SD (test code = 50.4 fL 38.5-51.6 83110-8) RDW-CV (test code = 14.3 % 12.1-15.4 788-0) PLT (test code = See_Comment H [Automated 777-3) message] The sy stem which generated this result transmitted reference range : 150 - 328 10*3/ ?L. The reference r ovidio was not used to interpret this result as normal/abnormal . MPV (test code = 9.1 fL 9.8-13.0 L 77418-6) NRBC/100 WBC (test See_Comment [Automat ed code = 7100082674) message] The system which generated this result transmitted reference range : 0.0 - 10.0 /100 WBCs. The refer ence range was not u sed to interpret th is result as normal/abnormal . NRBC x10^3 (test code <0.01 See_Comment [Auto mated = 9968598611) message] The s ystem which generated this result transmitted reference range : 10*3/?L. The reference range was not used to interpret this result as normal/abnormal . GRAN MAT (NEUT) % 53.7 % (test code = 770-8) IMM GRAN % (test code 0.20 % = 2738394214) LYMPH % (test code = 34.6 % 736-9) MONO % (test code = 8.0 % 5905-5) EOS % (test code = 2.7 % 713-8) BASO % (test code = 0.8 % 706-2) GRAN MAT x10^3(ANC) 2.76 10*3/uL 1.99-6.95 (test code = 5865404247) IMM GRAN x10^3 (test <0.03 0.00-0.06 code = 9355318321) LYMPH x10^3 (test code 1.78 10*3/uL 1.09-3.23 = 731-0) MONO x10^3 (test code 0.41 10*3/uL 0.36-1.02 = 742-7) EOS x10^3 (test code = 0.14 10*3/uL 0.06-0.53 711-2) BASO x10^3 (test code 0.04 10*3/uL 0.01-0.09 = 704-7) Lab Interpretation Abnormal (test code = 53219-5) [facility]
--- NOTE | 2021-12-21 19:51 | ER ---
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 Coronavirus screen: At this time, the client does not indicate any symptoms associated with coronavirus-19. Ebola Screen: No symptoms or risks identified at this time. Initial Sepsis Screen: Does the patient meet any 2 criteria? No. Patient's initial sepsis screen is negative. Does the patient have a suspected source of infection? Yes: Skin breakdown/wound. Risk Assessment: Do you want to hurt yourself or someone else? Patient reports no desire to harm self or others. Onset of symptoms was December 18, 2021. 19:04 Method Of Arrival: Wheelchair bm7 19:04 Acuity: LUBA 3 bm7 Triage Assessment: 19:05 General: Appears in no apparent distress. uncomfortable, Behavior is calm, cooperative, bm7 appropriate for age. Pain: Complains of pain in right foot Pain does not radiate. EENT: No deficits noted. No signs and/or symptoms were reported regarding the EENT system. Neuro: Level of Consciousness is awake, alert, obeys commands, Oriented to person, place, time, situation, Weakness in right foot/feet. Cardiovascular: No deficits noted. Respiratory: No deficits noted. GI: Abdomen is flat, non-distended, Last BM was December 18, 2021. Reports bloating, constipation. : No deficits noted. No signs and/or symptoms were reported regarding the genitourinary system. Derm: Wound noted right foot. Musculoskeletal: Reports weakness in right foot. Historical: - Allergies: 19:05 Tape; bm7 - Home Meds: 19:05 Neurontin 300 mg Oral cap 1 cap 3 times per day [Active]; Plavix 75 mg Oral tab bm7 [Active]; tramadol 50 mg Oral tab 1 tab every 4 hours [Active]; aspirin 81 mg Oral cap 1 cap once daily [Active]; lactulose 10 gram/15 mL (15 mL) Oral soln 15 mL once daily [Active]; - PMHx: 19:05 constipation; gangrene; bm7 - Immunization history:: Adult Immunizations up to date, Client reports receiving the 1st dose of the Covid vaccine. - Social history:: Smoking status: Patient reports the use of cigarette tobacco products, smokes one-half pack cigarettes per day. Screenin:30 Abuse screen: Denies threats or abuse. Denies injuries from another. Nutritional kb3 screening: No deficits noted. Tuberculosis screening: No symptoms or risk factors identified. Fall Risk No fall in past 12 months (0 pts). Secondary diagnosis (15 points) impaired mobility, No IV (0 pts). Ambulatory Aid- Crutches/Cane/Walker (15 pts). Gait- Impaired (20 pts.). Mental Status- Oriented to own ability (0 pts). Total Rick Fall Scale indicates High Risk Score (45 or more points). Fall prevention measures have been instituted. Side Rails Up X 2 Frequent Obs/Assessments Occuring As available patient and family educated on Fall Prevention Program and Strategies. Assessment: 19:30 Reassessment: No changes from previously documented assessment. General: Pt reports no kb3 BM x3 days due to pain medications. PT reports no distress, mild abdominal discomfort with an urge to defecate. Pt took 1 dose of lactulose from a previous prescription with no relief. 19:30 GI: Bowel sounds present X 4 quads. Abd is soft and non tender Reports constipation. kb3 21:45 General: Pt had large light brown BM. Pt reports he feels like the BM is not "normal kb3 looking." No blood noted in BM. Advised pt that BM might appear less than normal due to the fact that he has not had a BM in 3 days. PT states understanding.. Vital Signs: 19:03 BP 131 / 99; Pulse 94; Resp 18; Temp 98.0(TE); Pulse Ox 99% on R/A; Weight 68.04 kg bm7 (R); Height 6 ft. 0 in. (182.88 cm); Pain 5/10; 19:03 Body Mass Index 20.34 (68.04 kg, 182.88 cm) bm7 ED Course: 18:54 Patient arrived in ED. am2 19:05 Triage completed. bm7 19:05 Arm band placed on left wrist. bm7 19:30 Patient has correct armband on for positive identification. Bed in low position. Call kb3 light in reach. Side rails up X 1. Warm blanket given. 19:30 No provider procedures requiring assistance completed. kb3 19:32 Edgar Crouch MD is Attending Physician. kdr 19:55 Kira Brody, RN is Primary Nurse. kb3 21:59 Patient did not have IV access during this emergency room visit. kb3 Administered Medications: 20:10 Drug: Dulcolax (bisacodyl) Delayed Release Tablet 5 mg Route: PO; kb3 21:45 Follow up: Response: No adverse reaction kb3 20:49 Drug: Fleet Enema (sodium phosphate) 133 ml Route: DE; kb3 21:45 Follow up: Response: No adverse reaction kb3 Medication: 19:30 VIS not applicable for this client. kb3 Outcome: 19:50 Discharge ordered by . kdr 21:50 Discharged to home ambulatory. kb3 21:50 Condition: improved 21:50 Discharge instructions given to patient, Instructed on discharge instructions, follow up and referral plans. medication usage, Demonstrated understanding of instructions, follow-up care, medications, Prescriptions given X 2. 22:00 Patient left the ED. kb3 Signatures: Edgar Crouch MD MD [facility] Katia Sutton Brittany, GALO RN 7 Kira Brody, RN RN kb3 Corrections: (The following items were deleted from the chart) 19:07 19:05 PMHx: vascular disease; bm7 bm7 19:07 19:05 PMHx: Lung Cancer; 7 bm7
--- NOTE | 2021-12-21 19:51 | EDPHYS ---
Physician Documentation [facility] Name: Rene James Age: 61 yrs Sex: Male : 1960 Arrival Date: 12/21/2021 Time: 18:54 Bed 9 Private MD: ED Physician Edgar Crouch HPI: 12/21 19:45 This 61 yrs old Black Male presents to ER via Wheelchair with complaints of Abdominal kdr Pain, Constipation. 19:45 No BM in three days. Onset: The symptoms/episode began/occurred suddenly, 3 day(s) ago. kdr Severity of symptoms: At their worst the symptoms were mild in the emergency department the symptoms are unchanged. The patient has experienced similar episodes in the past, a few times, Was seen here a few weeks ago for the same problem. Received an enema and was discharged in good condition and his symptoms improved. 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 Historical: - Allergies: 19:05 Tape; bm7 - Home Meds: 19:05 Neurontin 300 mg Oral cap 1 cap 3 times per day [Active]; Plavix 75 mg Oral tab bm7 [Active]; tramadol 50 mg Oral tab 1 tab every 4 hours [Active]; aspirin 81 mg Oral cap 1 cap once daily [Active]; lactulose 10 gram/15 mL (15 mL) Oral soln 15 mL once daily [Active]; - PMHx: 19:05 constipation; gangrene; bm7 - Immunization history:: Adult Immunizations up to date, Client reports receiving the 1st dose of the Covid vaccine. - Social history:: Smoking status: Patient reports the use of cigarette tobacco products, smokes one-half pack cigarettes per day. ROS: 19:45 Constitutional: Negative for fever, chills, and weight loss, Eyes: Negative for injury, kdr pain, redness, and discharge, ENT: Negative for injury, pain, and discharge, Neck: Negative for injury, pain, and swelling, Cardiovascular: Negative for chest pain, palpitations, and edema, Respiratory: Negative for shortness of breath, cough, wheezing, and pleuritic chest pain, Back: Negative for injury and pain, : Negative for injury, bleeding, discharge, and swelling, MS/Extremity: Negative for injury and deformity, Skin: Negative for injury, rash, and discoloration, Neuro: Negative for headache, weakness, numbness, tingling, and seizure activity. Psych: Negative for depression, anxiety, suicide ideation, homicidal ideation, and hallucinations, Allergy/Immunology: Negative for hives, rash, and allergies, Endocrine: Negative for neck swelling, polydipsia, polyuria, polyphagia, and marked weight changes, Hematologic/Lymphatic: Negative for swollen nodes, abnormal bleeding, and unusual bruising. 19:45 Abdomen/GI: Positive for abdominal pain, constipation, Negative for nausea, vomiting, and diarrhea, black/tarry stool, rectal pain, rectal bleeding, bowel incontinence. Exam: 19:45 Constitutional: This is a well developed, well nourished patient who is awake, alert, kdr and in no acute distress. Head/Face: Normocephalic, atraumatic. Eyes: Pupils equal round and reactive to light, extra-ocular motions intact. Lids and lashes normal. Conjunctiva and sclera are non-icteric and not injected. Cornea within normal limits. Periorbital areas with no swelling, redness, or edema. 19:45 Abdomen/GI: Inspection: abdomen appears normal, Bowel sounds: normal, active, Palpation: soft, mild abdominal tenderness, in all quadrants. Vital Signs: 19:03 BP 131 / 99; Pulse 94; Resp 18; Temp 98.0(TE); Pulse Ox 99% on R/A; Weight 68.04 kg bm7 (R); Height 6 ft. 0 in. (182.88 cm); Pain 5/10; 19:03 Body Mass Index 20.34 (68.04 kg, 182.88 cm) bm7 MDM: 19:45 Data reviewed: vital signs, nurses notes. Counseling: I had a detailed discussion with kdr the patient and/or guardian regarding: the historical points, exam findings, and any diagnostic results supporting the discharge/admit diagnosis, the need for outpatient follow up. 19:50 Patient medically screened. kdr Administered Medications: 20:10 Drug: Dulcolax (bisacodyl) Delayed Release Tablet 5 mg Route: PO; kb3 21:45 Follow up: Response: No adverse reaction kb3 20:49 Drug: Fleet Enema (sodium phosphate) 133 ml Route: [place]; kb3 21:45 Follow up: Response: No adverse reaction kb3 Disposition Summary: 12/21/21 19:50 Discharge Ordered Location: Home kdr Problem: an acute exacerbation kdr Symptoms: have improved kdr Condition: Stable kdr Diagnosis - Constipation kdr Followup: kdr - With: Private Physician - When: 2 - 3 days - Reason: If symptoms return, Further diagnostic work-up, Recheck today's complaints, Continuance of care, Re-evaluation by your physician Discharge Instructions: - Discharge Summary Sheet kdr - Constipation, Adult, [id number] kdr - Abdominal Pain, Adult, [id number] kdr Forms: - Medication Reconciliation Form kdr - Thank You Letter kdr Prescriptions: - Dulcolax (bisacodyl) 5 mg Oral tablet,delayed release (DR/EC) - take 2 tablet by ORAL route once daily As needed; 20 tablet; Refills: 0, kdr Product Selection Permitted - Lactulose 10 gram/15 mL Oral Solution - take 30 milliliters by ORAL route once daily; 300 milliliter; Refills: 0, kdr Product Selection Permitted Signatures: Edgar Crouch MD MD kdr Rula Bloom, RN RN bm7 Kira Brody RN RN kb3 Corrections: (The following items were deleted from the chart) 19:07 19:05 PMHx: vascular disease; 7 bm7 19:07 19:05 PMHx: Lung Cancer; [facility]
[2021-12-21] MEDS ORDERED: BISACODYL E.C. 5 MG TAB PO ONE (20:12)
[2021-12-21] MEDS ORDERED: FLEET ENEMA ADULT PR ONE (20:21)
[2021-12-21 23:54] VITALS: BP 131/99; TEMP 98; O2SAT 99
== END 2021-12-21 22:00 | disposition home or self-care (01) ==
LOC: ER 18:53
DX: K59.00 Constipation, unspecified (principal); F17.210 Nicotine dependence, cigarettes, uncomplicated; Z79.01 Long term (current) use of anticoagulants; Z79.82 Long term (current) use of aspirin; Z91.048 Other nonmedicinal substance allergy status
CPT/HCPCS: 99283